=== PATIENT | female | born 1935 | race Caucasian/White ===

== ENCOUNTER 2020-07-15 12:12 | Emergency (ER) | payer MEDICARE, SELFPAY ==
--- NOTE | ~2020-07-15 | XR_ITS ---
EXAMINATION: XR chest 1V DATE: 07/15/2020 13:20 INDICATION: Syncope. TECHNIQUE: A single frontal view of the chest was obtained. COMPARISON: Chest 2 views 09/16/2019, CT abdomen and pelvis 10/08/2017 FINDINGS: There is no pneumonia, pleural effusion, or pneumothorax. Cardiomegaly is noted. Median augie rnotomy wires and mediastinal surgical clips are seen, likely from prior coronary artery bypass graft ing. IMPRESSION: 1. Cardiomegaly. Reviewed, dictated and finalized at location B. IMPRESSION: 1. Cardiomegaly.
--- NOTE | ~2020-07-15 | CT_ITS ---
EXAMINATION: CT brain wo con DATE: 07/15/2020 13:14 INDICATION: Syncope TECHNIQUE: Computed tomography (CT) of the head was performed without intravenous contrast. The mA wa s adjusted according to patient size. Iterative reconstruction technique was employed. Exam dose: 60 5.33 mGy-cm total exam DLP. COMPARISON: 02/04/2019 CT brain FINDINGS: No intracranial mass lesion or hemorrhage or cerebrovascular accident is evident. No midlin e shift or mass effect. There is vertebral and carotid siphon internal carotid artery calcification. There is nonspecific dim inished attenuation of the cerebral white matter, likely due to chronic small vessel ischemic changes . No fracture or bone destruction of the cranial vault. IMPRESSION: Cerebral atherosclerosis and chronic small vessel ischemic changes of the cerebral white matter Reviewed, dictated and finalized at Location [facility]. Reviewed, dictated and finalized at location A.
[2020-07-15 12:07] VITALS: BP 126/47; PULSE 68; RESP 13; TEMP 37.1; O2SAT 100
[2020-07-15 12:27] VITALS: PULSE 66
[2020-07-15 12:28] VITALS: BP 126/47; PULSE 64; RESP 13; O2SAT 99
--- NOTE | 2020-07-15 12:33 | ECG_ITS ---
Measurements Intervals [place] Rate: 67 P: MT: 0 QRS: 92 QRSD: 172 T: -67 QT: 454 QTc: 480 Interpretive Statements ATRIAL FIBRILLATION LEFT AXIS DEVIATION LEFT BUNDLE BRANCH BLOCK ABNORMAL ECG Electronically Signed On 07-15-2020 12:53:44 CDT by Syed Gillespie D.O.
[2020-07-15 12:53] LABS: Basophils Percent Auto 0.4 % (0.2-1.2); Eosinophils Absolute Auto 0.2 K/mm3 (0-0.3); Hematocrit 36.6 % (37.0-47.0); Hemoglobin 11.8 g/dL (12.0-15.0); Immature Granulocyte Absolute 0.03 K/mm3 (0.00-0.031); Immature Granulocyte Percent A 0.4 % (0-0.5); Lymphocytes Absolute Auto 0.82 K/mm3 (0.9-3.2); Lymphocytes Percent Auto 9.7 % (18.3-44.2); Mean Corpuscular HGB Conc 32.2 g/dl (32-36); Mean Corpuscular Hemoglobin 30.6 pg (26-34); Mean Corpuscular Volume 94.8 fl (80-100); Mean Platelet Volume 10.3 fl (7.4-10.4); Monocytes Absolute Auto 0.7 K/mm3 (0.1-0.6); Monocytes Percent Auto 7.9 % (2.6-8.5); Neutrophils Absolute Auto 6.7 K/mm3 (1.3-6.7); Neutrophils Percent Auto 79.6 % (45.5-73.1); Platelet Count Result 220 k/mm3 (150-375); Red Blood Count 3.86 M/mm3 (4.2-5.4); Red Cell Distribution Width 12.9 % (11.5-14.5); White Blood Count 8.5 K/mm3 (4.5-10.0)
--- NOTE | 2020-07-15 12:55 | ED.SYNCOPE ---
HPI - Syncope General Chief Complaint: Syncope Stated Complaint: near syncope Time Seen by Provider: 07/15/20 12:36 History of Present Illness HPI narrative: Patient presents via EMS for syncope at home. She does not remember the event for me but had just told the nurse about fainting going to the bathroom. She had no injury. She has no pain. She denies being sick recently. Her bowels and urine are working. She lives alone. Her daughter does the shopping. She has been isolating since COVID. She has no other complaints. MD complaint: loss of consciousness and collapsed Onset (ago): hour(s) Prodromal symptoms: other (Unknown) Witnessed: No Context: other (Walking to the bathroom) Injuries sustained associated with event: none Current symptoms: none Treatments prior to arrival: none Related Data Home Medications Medication Instructions Recorded Confirmed lorazepam [Ativan] 1 mg PO DAILY PRN 07/15/20 metoprolol succinate 25 mg PO DAILY 07/15/20 Allergies Allergy/AdvReac Type Severity Reaction Status Date / Time No Known Allergies Allergy Unknown Unverified 07/15/20 12:29 No Known Allergies Allergy Unknown Uncoded 06/29/20 12:07 Review of Systems Review of Systems: Narrative: CONSTITUTIONAL: Denies fever, chills, or sweats. EYES: Denies visual changes, redness, or discharge. ENT: Denies rhinorrhea, congestion, sore throat, or otalgia. CARDIOVASCULAR: Denies chest pain, palpitations, or edema. RESPIRATORY: Denies cough or dyspnea. GASTROINTESTINAL: Denies abdominal pain, nausea, vomiting, or diarrhea. GENITOURINARY: Denies dysuria or hematuria. SKIN: Denies rash or itching. MUSCULOSKELETAL: Denies back pain, joint pain, or myalgia. NEUROLOGIC: Denies headache, numbness, or weakness. . All systems reviewed & are unremarkable except as noted in HPI and below PMFSH Past Medical History Medical History Breast lump Chronic combined systolic and diastolic CHF (congestive heart failure) Closed fracture dislocation of ankle with malunion Coronary artery disease Depression Diabetes mellitus Diabetic retinopathy Essential hypertension Hyperlipidemia Hypothyroidism Thyroid cancer Thyroid nodule Surgical History Surgical History History of carpal tunnel release History of cholecystectomy History of knee replacement (~2000) History of knee replacement (~2007) History of partial hysterectomy History of tonsillectomy Hx of CABG Family History Family History (Updated 08/30/17 @ 10:49 by DOCTOR UNKNOWN) Father Family history of cataracts Family history of diabetes mellitus in first degree relative Family history of coronary artery disease, Onset Age: 80 Patient's father is , Onset Age: 80 Mother Family history of cataracts Family history of diabetes mellitus in first degree relative Family history of coronary artery disease, Onset Age: 70 Sibling Family history of cataracts Family history of diabetes mellitus in first degree relative Other Diabetes mellitus Family history of cardiovascular disease Social History Social History Smoking status: Never smoker Second hand tobacco smoke exposure: No Alcohol intake: never Exam Narrative: Exam Narrative: GENERAL: Well-appearing, well-nourished, and in no acute distress. HEAD: Normocephalic, atraumatic. EYES: PERRLA and EOMI. ENT: Nares clear, no rhinorrhea or epistaxis. Mucous membranes moist. NECK: Supple. CHEST: Clear to auscultation. No respiratory distress. HEART: Regular rate and rhythm. No murmur heard. Normal peripheral pulses. ABDOMEN: Soft, nontender, nondistended, normal active bowel sounds. EXTREMITIES: Normal range of motion. No edema. Right ankle deformed. SKIN: Warm, dry, no rash. NEURO: No focal deficits. Alert and oriented x2. PS
[2020-07-15 13:07] LABS: Anion Gap 10 mmol/L (8-16); Blood Urea Nitrogen 66 mg/dL (7-17); Calcium 8.8 mg/dL (8.4-10.2); Carbon Dioxide 32 mmol/L (22-30); Chloride 94 mmol/L (98-107); Estimated CRCL calculation 21 ml/min; Estimated Glomerular Filt Rate 25; Glucose 169 mg/dL (65-105); Potassium 3.6 mmol/L (3.4-5.0); Sodium 136 mmol/L (137-145)
[2020-07-15 13:17] LABS: INR 1.1
[2020-07-15 13:21] LABS: Creatine Kinase 35 U/L (30-135)
[2020-07-15 13:25] LABS: NT Pro B Type Natriuretic Pept 2200 PG/ML (5-100)
[2020-07-15 14:05] LABS: Thyroid Stimulating Hormone Reflex 0.024 uIU/mL (0.465-4.68)
[2020-07-15 14:10] VITALS: BP 156/50; PULSE 71; RESP 16; O2SAT 98
[2020-07-15 14:25] LABS: Add Urine Microscopic? NO; Appearance Urine Clear (Clear); Bilirubin Urine Negative (Negative); Blood Urine Negative (Negative); Color Urine Straw (Yellow); Glucose Urine UA Negative (Negative); Ketones Urine Negative (Negative); Leukocyte Esterase Ur Negative LEU/UL (Negative); Nitrate Urine Negative (Negative); Protein Urine Negative (Negative); Urobilinogen Urine Negative mg/dL (<2.0)
[2020-07-15 14:43] LABS: Amphetamine Screen Urine Negative (Negative); Barbiturate Screen Urine Negative (Negative); Benzodiazepines Screen Urine Negative (Negative); Cannabinoid Screen Urine Negative (Negative); Cocaine Screen Urine Negative (Negative); Methadone Screen Urine Negative (Negative); Opiate Screen Urine Negative (Negative); Phencyclidine Screen Urine Negative (Negative)
[2020-07-15 15:10] VITALS: BP 129/53; PULSE 65; RESP 15; O2SAT 100
[2020-07-15 16:04] VITALS: BP 126/47; PULSE 66; RESP 14; O2SAT 98
== END 2020-07-15 16:05 | disposition home or self-care (01) ==
PROVIDERS: Emergency Provider Emergency Medicine; PCP Family Medicine
DX: R55 Syncope and collapse (principal); I25.10 Atherosclerotic heart disease of native coronary artery without angina pectoris; F32.9 Major depressive disorder, single episode, unspecified; E11.319 Type 2 diabetes mellitus with unspecified diabetic retinopathy without macular edema; E78.5 Hyperlipidemia, unspecified; E03.9 Hypothyroidism, unspecified; I50.42 Chronic combined systolic (congestive) and diastolic (congestive) heart failure; I11.0 Hypertensive heart disease with heart failure; Z85.850 Personal history of malignant neoplasm of thyroid; Z96.659 Presence of unspecified artificial knee joint; Z95.1 Presence of aortocoronary bypass graft; I48.91 Unspecified atrial fibrillation; I44.7 Left bundle-branch block, unspecified; Z79.4 Long term (current) use of insulin; Z79.899 Other long term (current) drug therapy
CPT/HCPCS: 36415; 70450; 71045; 80048; 80307; 81003; 82550; 83735; 83880; 84439; 84443; 85025; 85610; 93005; 99284

== ENCOUNTER 2021-03-28 10:10 | Inpatient (IN) | payer MEDICARE, SELFPAY ==
[2021-03-28] VITALS (26 sets, daily range): BP systolic 101–145; BP diastolic 55–90; PULSE 70–100; RESP 13–21; TEMP 36.1–36.7; O2SAT 96–100; BMI 38.8
--- NOTE | ~2021-03-28 | XR_ITS ---
EXAMINATION: XR ankle RT min 3V EXAM DATE: 03/28/2021 12:00 INDICATION: Initial encounter following injury, with pain of the left ankle. TECHNIQUE: Left ankle frontal, lateral and oblique projections obtained and reviewed. Comparison is m kirstin to prior examination from 11/13/2020. FINDINGS: There is chronic ankle deformity with approximately 45 degrees medial angulation of the lisa us and tibial plafond and. Again broken medial malleolar screw. There are 2 right fibular distal meta physeal screws. 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 Superimposed on these chronic changes, there is suspicion of a new acute oblique nondisplaced closed posttraumatic fracture of the right tibial distal metadiaphysis. This finding has been indicated. Bon es are osteopenic. Advanced midfoot arthritis. IMPRESSION: 1. Probable acute nondisplaced right distal tibial metadiaphyseal fracture. 2. Chronic ankle deformity, hardware as above. Reviewed, dictated and finalized at location A.
--- NOTE | ~2021-03-28 | CT_ITS ---
EXAMINATION: CT cervical spine wo con DATE: 03/28/2021 11:50 INDICATION: Neck tenderness after fall TECHNIQUE: Computed tomography (CT) of the cervical spine was performed without intravenous contrast. The dose-length product was 489 mGy-cm. Automated exposure control and iterative reconstruction tech nique were employed. COMPARISON: None FINDINGS: There is straightening of cervical lordosis. There are advanced degenerative changes of the odontoid process. There is degenerative anterolisthesis at C3-4 and C4-5 secondary to facet and unci maeve degenerative change. There is disc narrowing and endplate degenerative changes at the remainder of the cervical spine levels. Lung apices are unremarkable. There is carotid atherosclerosis. No acut e fracture or traumatic malalignment. No evidence for perched facet. No paraspinal soft tissue abnorm ality. There is medial deviation of the carotids anterior to the vertebra of the lower cervical spine , normal variant. IMPRESSION: 1. No acute fracture. 2: Moderate-severe cervical spondylosis. Reviewed, dictated and finalized at location B.
--- NOTE | ~2021-03-28 | XR_ITS ---
EXAMINATION: XR hand LT min 3V DATE: 03/28/2021 12:00 INDICATION: Left hand injury. TECHNIQUE: 3 views of left hand were obtained. COMPARISON: None. FINDINGS: Bone alignment is normal. There is a comminuted fracture of diaphysis of fifth proximal pha lanx. The main distal fracture fragment demonstrates 23 degrees dorsal angulation and 13 degrees ulna r angulation. There is diffuse osteopenia. There is widespread osteoarthritis, severe at first carpom etacarpal joint, first interphalangeal joint, second through fifth distal interphalangeal joints, and fifth proximal interphalangeal joint. There is severe arthritis of second and fourth proximal interp halangeal joints with osteophytes and erosions. IMPRESSION: 1. Comminuted fracture of fifth proximal phalanx. 2. Severe arthritis of second and fourth proximal interphalangeal joints, which may be erosive osteoa rthritis. 3. Severe polyarticular osteoarthritis. Reviewed, dictated and finalized at location A. IMPRESSION: 1. Comminuted fracture of fifth proximal phalanx. 2. Severe arthritis of second and fourth proximal interphalangeal joints, which may be erosive osteoarthritis. 3. Severe polyarticular osteoarthritis.
--- NOTE | ~2021-03-28 | XR_ITS ---
EXAMINATION: XR hip RT 2V w AP pelvis DATE: 03/28/2021 17:22 INDICATION: Right leg pain post fall TECHNIQUE: Anteroposterior view of the pelvis and anteroposterior and cross-table lateral views of th e right hip were obtained. COMPARISON: None. FINDINGS: Partially visualized lateral plate and screw fixation along the visualized proximal to mid right femu r. Bone alignment is normal. No fracture. Mild bilateral hip and sacroiliac osteoarthritis. Mild lowe r lumbar spondylosis. Large phlebolith in the left hemipelvis. IMPRESSION: 1. Mild degenerative skeletal changes in the pelvis and lower lumbar spine. No acute osseous abnormal ity. Reviewed, dictated and finalized at location A. IMPRESSION: 1. Mild degenerative skeletal changes in the pelvis and lower lumbar spine. No acute osseous abnormality.
--- NOTE | ~2021-03-28 | CT_ITS ---
EXAMINATION: CT brain wo con DATE: 03/28/2021 11:50 INDICATION: Neck pain. Fall. TECHNIQUE: Computed tomography (CT) of the head was performed without intravenous contrast. The mA wa s adjusted according to patient size. Iterative reconstruction technique was employed. The dose-lengt h product was 605.33 mGy-cm. COMPARISON: Head CT 07/15/2020 FINDINGS: There is no intracranial hemorrhage, acute infarction, or abnormal intracranial mass lesion . There are scattered areas of low attenuation in the cerebral white matter, which is within normal l imits for the patient's age. The ventricles are normal in size. There are likely changes of ocular le ns replacement surgeries. There is mild mucosal thickening in the ethmoid sinuses. The mastoid air ce lls are normal. IMPRESSION: 1. Normal aging brain. Reviewed, dictated and finalized at location A. IMPRESSION: 1. Normal aging brain.
--- NOTE | ~2021-03-28 | XR_ITS ---
EXAMINATION: XR chest 1V portable DATE: 03/28/2021 12:58 INDICATION: Syncope. TECHNIQUE: A single frontal view of the chest was obtained. COMPARISON: Chest single view 07/15/2020 FINDINGS: There is mild atelectasis in left lower lung zone. No pleural effusion or pneumothorax. Car diomegaly is noted. Median sternotomy wires and mediastinal surgical clips are seen, likely from prio r coronary artery bypass grafting. IMPRESSION: 1. Mild atelectasis in left lower lung zone. 2. Cardiomegaly. Reviewed, dictated and finalized at location A.
--- NOTE | 2021-03-28 10:20 | ECG_ITS ---
Measurements Intervals [place] Rate: 77 P: ID: 0 QRS: -52 QRSD: 158 T: 121 QT: 437 QTc: 496 Interpretive Statements ATRIAL FIBRILLATION LEFT AXIS DEVIATION LEFT BUNDLE BRANCH BLOCK BASELINE ARTIFACT- I, II, III, AVR, AVL, AVF, V1-V6 ABNORMAL ECG Electronically Signed On 03-28-2021 14:52:28 CDT by Syed Gillespie D.O.
--- NOTE | 2021-03-28 10:59 | PC.NURSE ---
Pt. continuing to remove c-collar. Pt. denies any neck pain or pain upon palpation currently.
--- NOTE | 2021-03-28 11:22 | PC.NURSE ---
Pt. continues to removed c-collar and does not want it on. ERP aware and it ok with removal of c-collar.
--- NOTE | 2021-03-28 11:32 | ED.FALL ---
HPI - Fall General Chief Complaint: Fall Stated Complaint: FALL Time Seen by Provider: 03/28/21 11:15 History of Present Illness HPI Narrative: 86 yo female w/ h/o dementia presents from home after an unwitnessed fall. She reportedly had a fall at home this morning. She has an obvious ankle deformity, which EMS reports is chronic, but she is having pain there. She does report pain in other locations, but is not able to verbalize where. History limited by dmeentia Her daughter reports that she does have an old ankle injury, but was able to ambulate with a walker. Related Data Home Medications Medication Instructions Recorded Confirmed lorazepam [Ativan] 1 mg PO DAILY PRN 07/15/20 metoprolol succinate 25 mg PO DAILY 07/15/20 Allergies Allergy/AdvReac Type Severity Reaction Status Date / Time No Known Allergies Allergy Unknown Unverified 07/15/20 12:29 No Known Allergies Allergy Unknown Uncoded 06/29/20 12:07 Review of Systems Review of Systems: ROS unobtainable: Yes unobtainable due to mental status PMFSH Past Medical History Medical History Breast lump Chronic combined systolic and diastolic CHF (congestive heart failure) Closed fracture dislocation of ankle with malunion Coronary artery disease Depression Diabetes mellitus Diabetic retinopathy Essential hypertension Hyperlipidemia Hypothyroidism Thyroid cancer Thyroid nodule Surgical History Surgical History History of carpal tunnel release History of cholecystectomy History of knee replacement (~2000) History of knee replacement (~2007) History of partial hysterectomy History of tonsillectomy Hx of CABG Family History Family History Father Family history of cataracts Family history of diabetes mellitus in first degree relative Family history of coronary artery disease, Onset Age: 80 Patient's father is , Onset Age: 80 Mother Family history of cataracts Family history of diabetes mellitus in first degree relative Family history of coronary artery disease, Onset Age: 70 Sibling Family history of cataracts Family history of diabetes mellitus in first degree relative Other Diabetes mellitus Family history of cardiovascular disease Social History Social History Smoking status: Never smoker Second hand tobacco smoke exposure: No Alcohol intake: never Gender identity (if verbalized by the patient): Female Exam Const: General: no acute distress and alert Nutritional Appearance: well nourished Other: Oriented to self and location HENMT: Head: normal to inspection Eyes: Conjunctivae: conjunctivae normal Pupils: Equal, round and reactive pupils present EOM: EOMs intact bilaterally Neck: Neck: normal visual inspection Resp: Effort & Inspection: normal respiratory effort Auscultation: clear to auscultation bilaterally Cardio: Rate: regular rate Rhythm: regular rhythm GI: GI Palp: Yes Soft to palpation and No Tenderness to palpation present (GI) Back/Spine/Pelvis: Other: mild cervical spine tenderness Skin: Other: bruising to left hand Neuro: General: moves all extremities, no focal motor deficits and CN's II-XI intact bilaterally Speech: normal speech Extrem: Other: significant deformity to right ankle. bruising to left hand Course Vital Signs Vital signs: Vital Signs Temperature 36.7 C 03/28/21 10:22 Pulse Rate 80 03/28/21 10:22 Respiratory Rate 14 03/28/21 10:22 Blood Pressure 145/70 H 03/28/21 10:22 Pulse Oximetry 99 03/28/21 10:22 Temperature 36.7 C 03/28/21 10:22 Pulse Rate 84 03/28/21 13:42 Respiratory Rate 20 03/28/21 13:42 Blood Pressure 142/79 H 03/28/21 13:42 Pulse Oximetry 99 03/28/21 13:42 MDM
[2021-03-28 12:50] LABS: Add Urine Microscopic? YES; Appearance Urine Cloudy (Clear); Bacteria Urine Trace /hpf; Bilirubin Urine Negative (Negative); Blood Urine Negative (Negative); Color Urine Yellow (Yellow); Glucose Urine UA Negative (Negative); Ketones Urine Negative (Negative); Leukocyte Esterase Ur Trace LEU/UL (Negative); Nitrate Urine Negative (Negative); Protein Urine Negative (Negative); RBC Urine 0-2 /hpf (0-2); Specific Grav Ur 1.017 (1.001-1.035); Squamous Epithelial Cell Urine Many /hpf (Few); Urobilinogen Urine Negative mg/dL (<2.0)
[2021-03-28 12:51] LABS: Basophils Percent Auto 0.1 % (0.2-1.2); Eosinophils Absolute Auto 0.1 K/mm3 (0-0.3); Eosinophils Percent Auto 1.1 % (0-4.4); Hematocrit 36.8 % (37.0-47.0); Hemoglobin 11.5 g/dL (12.0-15.0); Immature Granulocyte Absolute 0.02 K/mm3 (0.00-0.031); Immature Granulocyte Percent A 0.2 % (0-0.5); Lymphocytes Absolute Auto 0.74 K/mm3 (0.9-3.2); Lymphocytes Percent Auto 8.8 % (18.3-44.2); Mean Corpuscular HGB Conc 31.3 g/dl (32-36); Mean Corpuscular Hemoglobin 30.5 pg (26-34); Mean Corpuscular Volume 97.6 fl (80-100); Mean Platelet Volume 10.6 fl (7.4-10.4); Monocytes Absolute Auto 0.7 K/mm3 (0.1-0.6); Monocytes Percent Auto 8.2 % (2.6-8.5); Neutrophils Absolute Auto 6.9 K/mm3 (1.3-6.7); Neutrophils Percent Auto 81.6 % (45.5-73.1); Platelet Count Result 201 k/mm3 (150-375); Red Blood Count 3.77 M/mm3 (4.2-5.4); Red Cell Distribution Width 14.5 % (11.5-14.5); White Blood Count 8.4 K/mm3 (4.5-10.0)
[2021-03-28 13:00] LABS: Alanine Aminotransferase 23 U/L (4-35); Albumin Level 3.8 g/dL (3.5-5.1); Alkaline Phosphatase 100 U/L (38-126); Anion Gap 7 mmol/L (8-16); Aspartate Amino Transferase 30 U/L (14-36); Bilirubin,Total 0.5 mg/dL (0.2-1.3); Blood Urea Nitrogen 54 mg/dL (7-17); Calcium 8.9 mg/dL (8.4-10.2); Carbon Dioxide 33 mmol/L (22-30); Chloride 98 mmol/L (98-107); Estimated CRCL calculation 24 ml/min; Estimated Glomerular Filt Rate 27; Glucose 168 mg/dL (65-105); INR 1.1; Potassium 4.1 mmol/L (3.4-5.0); Prothrombin Time 14.4 Seconds (11.1-14.7); Sodium 138 mmol/L (137-145)
[2021-03-28 13:01] LABS: Partial Thromboplastin Time 29.1 SECONDS (22.3-36.8)
[2021-03-28 13:17] LABS: Troponin I 0.051 ng/mL (0.000-0.034)
--- NOTE | 2021-03-28 15:31 | PM.IMPN ---
Progress Note: A&P Assessment and Plan (1) Chronic combined systolic and diastolic CHF (congestive heart failure): Code(s): I50.42 - Chronic combined systolic (congestive) and diastolic (congestive) heart failure Status: Acute Assessment and Plan: I will order Echocardiogram as patient is having Non sustained VT on EKG and monitor pt and tele I will order potassium and magnesium levels I will continue diuretics I catalino order serial troponins Pt to be kept on telemetry. (2) Closed fracture dislocation of ankle with malunion: Qualifiers: Laterality: right Qualified Code(s): S82.891P - Other fracture of right lower leg, subsequent encounter for closed fracture with malunion Code(s): S82.899P - Other fracture of unspecified lower leg, subsequent encounter for closed fracture with malunion Status: Acute Assessment and Plan: Pt had cast in ED, I will consult orthopedics DR Jones (3) Diabetes mellitus: Code(s): E11.9 - Type 2 diabetes mellitus without complications Status: Acute Assessment and Plan: Accuchecks, SSI, Order HBaic (4) Coronary artery disease: Code(s): I25.10 - Atherosclerotic heart disease of [place] coronary artery without angina pectoris Status: Acute Assessment and Plan: Continue patients medication (5) Depression: Code(s): F32.9 - Major depressive disorder, single episode, unspecified Status: Acute Assessment and Plan: Continue patients medication (6) Hypothyroidism: Code(s): E03.9 - Hypothyroidism, unspecified Status: Acute Assessment and Plan: Continue patients medication (7) Essential hypertension: Code(s): I10 - Essential (primary) hypertension Status: Acute Assessment and Plan: Continue patients medication (8) Hyperlipidemia: Code(s): E78.5 - Hyperlipidemia, unspecified Status: Acute Assessment and Plan: Continue patients medication (9) CKD (chronic kidney disease): Code(s): N18.9 - Chronic kidney disease, unspecified Status: Acute Assessment and Plan: CReat is 1.8 which is at patient baseline continue to watch BMP. Rcihie as patient is on diuretics Subjective Date/time seen: 03/28/21 15:31 Fall Pt had a unwitnessed fall out of her bed, pt has a history of ankle deformity, presently pt has acute nondisplaced right distal tibial metadiaphyseal fracture of her right ankle and sustained a comminuted fracture of fifth proximal phalanx. PT has multiple problems including dementia, DM, CHF, HTN CAD and COPD, hypothyoidism, thyroid cancer. Presently pts creat is 1.8, her trop is 0.051 her ekg shows ATRIAL FIBRILLATION, LEFT AXIS DEVIATION, LEFT BUNDLE BRANCH BLOCK. Pt had some non sustained VT tach on tele. So we are going to admit to telemetry. And consult orthopedics. Pt has been seeing DR Jones orthopedics, for her right ankle, in the past. Difficult to get accurate history about fall as pt has dementia and it was unwitnessed. Pt had Ct head, CT- spine in ED. Review of Systems Review of Systems: All systems reviewed & are unremarkable except as noted in HPI and below Exam Const: General: other (pleasant lady poor historian pt loks slightly swollen face and hands ) Nutritional Appearance: overweight Orientation/consciousness: oriented to person HENMT: Head: normal to inspection Resp: Effort & Inspection: no respiratory distress Auscultation: no rhonchi and no wheezes Cardio: Rate: regular rate Rhythm: regular rhythm GI: Inspection: normal to inspection GI Palp: No abdominal tenderness, No Guarding due to palpation present (GI) and No Hepatomegaly present Auscultation: normal bowel sounds Neuro: General: oriented to person Extrem: General: other (R ankle in cast, L finger in splint ) Objective Data Vital Signs Vital Signs: Vital Signs - 24 hr 03/28/21 10:22 03/28/21 10:32 03/28/21 10
--- NOTE | 2021-03-28 15:35 | PC.NURSE ---
This patient, Fawn Montgomery, was admitted to IMU Room 202-01. Patient/family oriented to hospital policies and general routines including ID bracelet, bed and alarms, visiting hours, pain management, procedures, bathroom and other care routines, personal items, smoking policy, room service/diet, and visiting hours. Information on how to activate the Rapid Response Team has been discussed. Patient/Family are encouraged to report perceived risks to care and to ask questions if they do not understand what they are told or what they should do.
[2021-03-28 16:32] LABS: Magnesium 1.9 mg/dL (1.6-2.3)
[2021-03-28 16:43] LABS: Hemoglobin A1C 8.2 % (<5.7)
[2021-03-28 17:00] LABS: Glucose Point of Care 159 (65-105)
[2021-03-28 20:05] LABS: Glucose Point of Care 306 (65-105)
[2021-03-28] MEDS: BUMETANIDE 1 MG TABLET 2 MG PO (20:36)
[2021-03-28] MEDS: VENLAFAXINE HCL XR 75 MG CAP.ER.24H PO (20:36)
[2021-03-28] MEDS: HEPARIN SODIUM 5,000 UNITS/ML VIAL 5000 UNITS SUB-Q (20:36)
[2021-03-28] MEDS: LORazepam (*CRX) 1 MG TABLET PO (20:36)
[2021-03-28] MEDS: TOLNAFTATE 1% POWDER 45 GM BTL 1 APPLIC TOPICAL (20:37)
[2021-03-28] MEDS: traZODone HCL 50 MG TABLET 100 MG PO (20:37)
[2021-03-29] VITALS (10 sets, daily range): BP systolic 101–149; BP diastolic 61–98; PULSE 56–109; RESP 19–24; TEMP 36–36.8; O2SAT 96–98
[2021-03-29] MEDS: LEVOTHYROXINE SODIUM 100 MCG TABLET PO (05:49)
[2021-03-29] MEDS: LEVOTHYROXINE SODIUM 75 MCG TABLET PO (05:50)
[2021-03-29 07:00] LABS: Anion Gap 4 mmol/L (8-16); Blood Urea Nitrogen 56 mg/dL (7-17); Calcium 8.4 mg/dL (8.4-10.2); Carbon Dioxide 31 mmol/L (22-30); Chloride 100 mmol/L (98-107); Estimated CRCL calculation 23 ml/min; Estimated Glomerular Filt Rate 27; Glucose 207 mg/dL (65-105); Magnesium 1.9 mg/dL (1.6-2.3); Sodium 135 mmol/L (137-145)
[2021-03-29 08:24] LABS: Glucose Point of Care 189 (65-105)
[2021-03-29] MEDS: HEPARIN SODIUM 5,000 UNITS/ML VIAL 5000 UNITS SUB-Q ×2 (08:59→22:18)
[2021-03-29] MEDS: PRAVASTATIN SODIUM 20 MG TABLET PO (08:59)
[2021-03-29] MEDS: BUMETANIDE 1 MG TABLET 2 MG PO ×2 (08:59→17:48)
[2021-03-29] MEDS: VENLAFAXINE HCL XR 75 MG CAP.ER.24H PO ×2 (08:59→20:43)
[2021-03-29] MEDS: IRBESARTAN 75 MG TABLET PO (08:59)
[2021-03-29] MEDS: TOLNAFTATE 1% POWDER 45 GM BTL 1 APPLIC TOPICAL ×2 (09:00→22:18)
[2021-03-29 12:06] LABS: Glucose Point of Care 214 (65-105)
[2021-03-29] MEDS: INSULIN ASPART (*BKC) 100 UNITS/ML SUB-Q (12:24)
--- NOTE | 2021-03-29 12:47 | PM.IMPN ---
Progress Note: A&P Assessment and Plan (1) Chronic combined systolic and diastolic CHF (congestive heart failure): Code(s): I50.42 - Chronic combined systolic (congestive) and diastolic (congestive) heart failure Status: Acute Assessment and Plan: Echocardiogram Non sustained VT on lpn medical assistant and tele potassium and magnesium levels continue diuretics serial troponins Pt to be kept on telemetry. (2) Closed fracture dislocation of ankle with malunion: Qualifiers: Laterality: right Qualified Code(s): S82.891P - Other fracture of right lower leg, subsequent encounter for closed fracture with malunion Code(s): S82.899P - Other fracture of unspecified lower leg, subsequent encounter for closed fracture with malunion Status: Acute Assessment and Plan: Pt had cast in ED consult orthopedics DR Jones Follow Ortho recs PT OT (3) Diabetes mellitus: Code(s): E11.9 - Type 2 diabetes mellitus without complications Status: Acute Assessment and Plan: Accuchecks, SSI as needed Order HBa1c (4) Coronary artery disease: Code(s): I25.10 - Atherosclerotic heart disease of [place] coronary artery without angina pectoris Status: Acute Assessment and Plan: Stable Continue meds (5) Depression: Code(s): F32.9 - Major depressive disorder, single episode, unspecified Status: Acute Assessment and Plan: Continue patients medication Stable (6) Hypothyroidism: Code(s): E03.9 - Hypothyroidism, unspecified Status: Acute Assessment and Plan: Continue patients medication Stable (7) Essential hypertension: Code(s): I10 - Essential (primary) hypertension Status: Acute Assessment and Plan: Continue patients medication Stable (8) Hyperlipidemia: Code(s): E78.5 - Hyperlipidemia, unspecified Status: Acute Assessment and Plan: Continue patients medication Stable (9) CKD (chronic kidney disease): Code(s): N18.9 - Chronic kidney disease, unspecified Status: Acute Assessment and Plan: Cr is 1.8 Will monitor At baseline Subjective Date/time seen: 03/29/21 12:47 I feel fine Review of Systems Review of Systems: Narrative: Patient is not a very good historian is states that she came in because she fell she denies any loss of consciousness. Exam Const: General: other (pleasant lady poor historian pt loks slightly swollen face and hands ) Nutritional Appearance: overweight Orientation/consciousness: oriented to person HENMT: Head: normal to inspection Resp: Effort & Inspection: no respiratory distress Auscultation: no rhonchi and no wheezes Cardio: Rate: regular rate Rhythm: regular rhythm GI: Inspection: normal to inspection Auscultation: normal bowel sounds Neuro: General: oriented to person Extrem: General: other (R ankle in cast, L finger in splint ) Objective Data Vital Signs Vital Signs: Vital Signs - 24 hr 03/28/21 12:57 03/28/21 13:00 03/28/21 13:15 Temperature Pulse Rate 72 75 95 Respiratory Rate 20 20 18 Blood Pressure Pulse Oximetry 98 98 99 03/28/21 13:42 03/28/21 13:46 03/28/21 14:07 Temperature Pulse Rate 84 76 84 Respiratory Rate 20 18 15 Blood Pressure 142/79 H 101/90 Pulse Oximetry 99 99 03/28/21 14:21 03/28/21 14:33 03/28/21 14:45 Temperature Pulse Rate 76 85 85 Respiratory Rate 14 18 21 H Blood Pressure Pulse Oximetry 98 97 97 03/28/21 15:40 03/28/21 16:00 03/28/21 18:00 Temperature 97 F L Pulse Rate 79 88 75 Respiratory Rate 18 Blood Pressure 115/68 Pulse Oximetry 100 03/28/21 19:52 03/28/21 20:00 03/28/21 22:00 Temperature 98.1 F Pulse Rate 82 93 100 Respiratory Rate 18 Blood Pressure 124/57 L Pulse Oximetry 97 03/28/21 23:43 03/29/21 00:00 03/29/21 04:00 Temperature 98.1 F 98.2 F Pulse Rate 86 88 84 Respiratory Rate 18 19
--- NOTE | 2021-03-29 14:44 | PC.NURSE ---
1130- pt status changed to med/surg as ordered
[2021-03-29 18:08] LABS: Glucose Point of Care 189 (65-105)
--- NOTE | 2021-03-29 19:14 | PM.CNOR ---
Assessment and Plan Assessment and plan (1) Closed fracture dislocation of ankle with malunion: Qualifiers: Laterality: right Qualified Code(s): S82.891P - Other fracture of right lower leg, subsequent encounter for closed fracture with malunion Code(s): S82.899P - Other fracture of unspecified lower leg, subsequent encounter for closed fracture with malunion Status: Acute (2) Insufficiency fracture of tibia: Qualifiers: Encounter type: initial encounter Qualified Code(s): M84.469A - Pathological fracture, unspecified tibia and fibula, initial encounter for fracture Code(s): M84.469A - Pathological fracture, unspecified tibia and fibula, initial encounter for fracture Status: Acute Assessment and Plan: Acute onset of pain. Nondisplaced tibial distal metaphyseal fracture noted on radiographs. Prodrome of increasing severe pain the previous week. The fracture is secondary to increased stress from the angular deformity of the ankle malunion, and osteoporosis. The fibular hardware was removed last year. Until last week, she was quite stable and doing well with her ankle brace, despite the malunion and ankle joint arthritis. She is an in home ambulator with a walker, and occasionally goes out with a wheelchair, with her very supportive family. The comminuted minimally displaced proximal phalanx fracture on the left hand can be treated conservatively with splinting. Expect good healing over the next 2 weeks. I contoured the splint today. Plan to change her splint to a cast prior to discharge. She will likely need rehab and will be [id number] transfers only for 4 weeks. History of Present Illness HPI Consult date: 03/29/21 Chief complaint: Nonsustained v-tach, ankle fracture, Narrative: Patient complains of acute right ankle pain. Fell from standing height. Admitted through the emergency room for definitive management. She had a prodrome of pain 1 week prior. Weightbearing became quite painful then suddenly was unable to bear weight. Comfortable at rest. No numbness, tingling, or other associated symptoms. Also complains of left finger pain. Was splinted in the emergency room. Review of Systems Review of Systems: Narrative: Denies loss of consciousness. Poor memory for events. Congestive heart failure symptoms. Oxygen by nasal cannula yesterday. Frequent urination. All systems reviewed & are unremarkable except as noted in HPI and below PMFSH Past Medical History Medical History (Updated 03/29/21 @ 19:19 by Arnold Jones MD) Breast lump Chronic combined systolic and diastolic CHF (congestive heart failure) Closed fracture dislocation of ankle with malunion Coronary artery disease Depression Diabetes mellitus Diabetic retinopathy Essential hypertension Hyperlipidemia Hypothyroidism Thyroid cancer Thyroid nodule Surgical History Surgical History History of carpal tunnel release History of cholecystectomy History of knee replacement (~2000) History of knee replacement (~2007) History of partial hysterectomy History of tonsillectomy Hx of CABG Family History Family History Father Family history of cataracts Family history of diabetes mellitus in first degree relative Family history of coronary artery disease, Onset Age: 80 Patient's father is , Onset Age: 80 Mother Family history of cataracts Family history of diabetes mellitus in first degree relative Family history of coronary artery disease, Onset Age: 70 Sibling Family history of cataracts Family history of diabetes mellitus in first degree relative Other Diabetes mellitus Family history of cardiovascular disease Social History Social History Smoking status: Never smoker S
[2021-03-29] MEDS: traZODone HCL 50 MG TABLET 100 MG PO (20:42)
[2021-03-29 21:09] LABS: Glucose Point of Care 195 (65-105)
[2021-03-29] MEDS: LORazepam (*CRX) 1 MG TABLET PO (22:38)
[2021-03-30] VITALS (7 sets, daily range): BP systolic 109–136; BP diastolic 52–96; PULSE 66–100; RESP 18–22; TEMP 36.4–36.9; O2SAT 92–100
--- NOTE | 2021-03-30 02:03 | PC.NURSE ---
This patient, Fawn Montgomery, was transferred to [[id number] ] on 03/30/21 at 0203. Personal belongings sent with patient. Report given to [ Bernard gaspar]. Appropriate documentation sent with patient.
--- NOTE | 2021-03-30 02:35 | PC.NURSE ---
Pt received from [place] [id number]
[2021-03-30] MEDS: LEVOTHYROXINE SODIUM 75 MCG TABLET PO (05:31)
[2021-03-30] MEDS: LEVOTHYROXINE SODIUM 100 MCG TABLET PO (05:31)
[2021-03-30] MEDS: ACETAMINOPHEN 500 MG TABLET 1000 MG PO ×2 (06:33→17:20)
[2021-03-30] MEDS: LORazepam (*CRX) 1 MG TABLET PO (06:34)
[2021-03-30 08:10] LABS: Glucose Point of Care 174 (65-105)
[2021-03-30] MEDS: IRBESARTAN 75 MG TABLET PO (08:28)
[2021-03-30] MEDS: TOLNAFTATE 1% POWDER 45 GM BTL 1 APPLIC TOPICAL ×2 (08:28→20:48)
[2021-03-30] MEDS: PRAVASTATIN SODIUM 20 MG TABLET PO (08:28)
[2021-03-30] MEDS: BUMETANIDE 1 MG TABLET 2 MG PO ×2 (08:28→17:20)
[2021-03-30] MEDS: VENLAFAXINE HCL XR 75 MG CAP.ER.24H PO ×2 (08:28→20:47)
[2021-03-30] MEDS: HEPARIN SODIUM 5,000 UNITS/ML VIAL 5000 UNITS SUB-Q ×2 (08:28→20:47)
--- NOTE | 2021-03-30 10:10 | PCOTNOTE ---
Attempted OT eval. Per RN request HOLD this date, until pt. rest, awareness, and cognition improves
--- NOTE | 2021-03-30 10:31 | PCPTNOTE ---
Attempted PT eval. Per RN request hold evaluation this date, until patient rest, awareness, and cognition improves. ZULEMA PolancoT
[2021-03-30 11:45] LABS: Glucose Point of Care 163 (65-105)
--- NOTE | 2021-03-30 12:29 | PM.IMPN ---
Progress Note: A&P Assessment and Plan (1) Chronic combined systolic and diastolic CHF (congestive heart failure): Code(s): I50.42 - Chronic combined systolic (congestive) and diastolic (congestive) heart failure Status: Acute Assessment and Plan: Echocardiogram Non sustained VT on electrifier operator and tele potassium and magnesium levels continue diuretics serial troponins Pt to be kept on telemetry. (2) Closed fracture dislocation of ankle with malunion: Qualifiers: Laterality: right Qualified Code(s): S82.891P - Other fracture of right lower leg, subsequent encounter for closed fracture with malunion Code(s): S82.899P - Other fracture of unspecified lower leg, subsequent encounter for closed fracture with malunion Status: Acute Assessment and Plan: Pt had cast in ED consult orthopedics DR Jones Follow Ortho recs PT OT (3) Diabetes mellitus: Code(s): E11.9 - Type 2 diabetes mellitus without complications Status: Acute Assessment and Plan: Accuchecks, SSI as needed Order HBa1c (4) Coronary artery disease: Code(s): I25.10 - Atherosclerotic heart disease of [place] coronary artery without angina pectoris Status: Acute Assessment and Plan: Stable Continue meds (5) Depression: Code(s): F32.9 - Major depressive disorder, single episode, unspecified Status: Acute Assessment and Plan: Continue patients medication Stable (6) Hypothyroidism: Code(s): E03.9 - Hypothyroidism, unspecified Status: Acute Assessment and Plan: Continue patients medication Stable (7) Essential hypertension: Code(s): I10 - Essential (primary) hypertension Status: Acute Assessment and Plan: Continue patients medication Stable (8) Hyperlipidemia: Code(s): E78.5 - Hyperlipidemia, unspecified Status: Acute Assessment and Plan: Continue patients medication Stable (9) CKD (chronic kidney disease): Code(s): N18.9 - Chronic kidney disease, unspecified Status: Acute Assessment and Plan: Cr is 1.8 Will monitor At baseline Subjective Date/time seen: 03/30/21 12:29 I FEEL FINE Review of Systems Review of Systems: All systems reviewed & are unremarkable except as noted in HPI and below Exam Narrative: Exam Narrative: PATIENT IS SITTING IN BED Const: General: other (pleasant lady poor historian pt loks slightly swollen face and hands ) Nutritional Appearance: overweight Orientation/consciousness: oriented to person HENMT: Head: normal to inspection Resp: Effort & Inspection: no respiratory distress Auscultation: no rhonchi and no wheezes Cardio: Rate: regular rate Rhythm: regular rhythm GI: Inspection: normal to inspection Auscultation: normal bowel sounds Neuro: General: oriented to person Extrem: General: other (R ankle in cast, L finger in splint ) Objective Data Vital Signs Vital Signs: Vital Signs - 24 hr 03/29/21 16:00 03/29/21 20:00 03/30/21 00:00 Temperature 97.1 F L 98.2 F Pulse Rate 84 84 100 Respiratory Rate 24 H 24 H 20 Blood Pressure 101/88 136/72 Pulse Oximetry 98 98 98 03/30/21 04:57 03/30/21 08:33 03/30/21 08:39 Temperature 98.4 F Pulse Rate 92 Respiratory Rate 22 H Blood Pressure 109/96 H Pulse Oximetry 92 98 98 Intake/Output Intake/Output: Intake & Output 03/27/21 03/28/21 03/29/21 03/30/21 23:59 23:59 23:59 23:59 Intake Total 300 1302 150 Output Total 150 200 301 Balance 150 1102 -151 Meds/Results Medications: Active Medications Generic Name Dose Route Start Last Admin Trade Name Freq PRN Reason Stop Dose Admin Acetaminophen 1,000 mg 03/30/21 06:04 03/30/21 06:33 Acetaminophen 500 Mg Tablet PO 1,000 mg TID PRN Administration Pain Rated 1-3 Acetazolamide 125 mg 03/29/21 09:00 03/30/21 08:28 Acetazolamide Tab 125 Mg Tablet PO 125 mg
[2021-03-30 17:06] LABS: SARS-CoV-2 RNA PCR Negative
[2021-03-30 17:24] LABS: Glucose Point of Care 242 (65-105)
[2021-03-30] MEDS: INSULIN ASPART (*BKC) 100 UNITS/ML SUB-Q (17:25)
[2021-03-30] MEDS: ALBUTEROL SULFATE (*SP) AEROSOL 1 PUFF INHALATION (20:43)
[2021-03-30] MEDS: traZODone HCL 50 MG TABLET 100 MG PO (20:47)
[2021-03-30 21:01] LABS: Glucose Point of Care 177 (65-105)
[2021-03-31 06:00] VITALS: BP 109/85; PULSE 79; RESP 21; TEMP 36.2; O2SAT 100
[2021-03-31] MEDS: LEVOTHYROXINE SODIUM 100 MCG TABLET PO (06:23)
[2021-03-31] MEDS: LEVOTHYROXINE SODIUM 75 MCG TABLET PO (06:23)
[2021-03-31] MEDS: PRAVASTATIN SODIUM 20 MG TABLET PO (08:35)
[2021-03-31] MEDS: BUMETANIDE 1 MG TABLET 2 MG PO ×2 (08:35→18:21)
[2021-03-31] MEDS: IRBESARTAN 75 MG TABLET PO (08:35)
[2021-03-31] MEDS: VENLAFAXINE HCL XR 75 MG CAP.ER.24H PO ×2 (08:36→20:12)
[2021-03-31] MEDS: HEPARIN SODIUM 5,000 UNITS/ML VIAL 5000 UNITS SUB-Q ×2 (08:36→20:11)
[2021-03-31] MEDS: TOLNAFTATE 1% POWDER 45 GM BTL 1 APPLIC TOPICAL ×2 (08:37→20:14)
[2021-03-31 08:46] VITALS: O2SAT 94
[2021-03-31 08:46] LABS: Glucose Point of Care 131 (65-105)
[2021-03-31] MEDS: metOLazone 5 MG TABLET PO (09:49)
[2021-03-31 10:25] LABS: Alveolar/Arterial O2 Gradient 19.9 mmHg; Base Excess ABG 3.4 mEq/l (+/-2.0); Fractional Inspired Oxygen 24 %; HCO3 ABG 28.2 mEq/l (22.0-26.0); Oxygen Content ABG 16.6 %vol (16.0-22.0); Oxygen Saturation ABG 97.7 % (95.0-100.0); Oxyhemoglobin 96.2 % THb (90.0-100.0); PCO2 ABG 43.3 mmHg (35.0-45.0); PO2 ABG 99.7 mmHg (80.0-100.0); PO2 FiO2 Ratio Arterial Blood 4.15 %; Total Hemoglobin 12.2 g/dL (12.0-18.0); pH ABG 7.431 (7.350-7.450)
[2021-03-31 10:26] LABS: Device NASAL CANNULA; Modified Allen's Test Pass; Site Drawn RIGHT RADIAL
[2021-03-31] MEDS: ASPIRIN 81 MG ENTERIC TABLET PO (13:04)
[2021-03-31] MEDS: INSULIN ASPART (*BKC) 100 UNITS/ML SUB-Q ×2 (13:07→18:17)
[2021-03-31 13:23] LABS: Glucose Point of Care 237 (65-105)
--- NOTE | 2021-03-31 13:38 | PM.PNORT ---
Progress Note: A&P Assessment and Plan (1) Insufficiency fracture of tibia: Qualifiers: Encounter type: initial encounter Qualified Code(s): M84.469A - Pathological fracture, unspecified tibia and fibula, initial encounter for fracture Code(s): M84.469A - Pathological fracture, unspecified tibia and fibula, initial encounter for fracture Status: Acute (2) Closed fracture dislocation of ankle with malunion: Qualifiers: Laterality: right Qualified Code(s): S82.891P - Other fracture of right lower leg, subsequent encounter for closed fracture with malunion Code(s): S82.899P - Other fracture of unspecified lower leg, subsequent encounter for closed fracture with malunion Status: Acute Assessment and Plan: Non distplaced distal tibia insufficiency fracture. Splint changed to a cast. Remain non weight bearing. Pivot transfers. F/u in 4 weeks with x-ray. April discharge when ready. Subjective Subjective Date/Time Seen: 04/01/21 13:38 Interval history: Moderate pain with activity. Exam Narrative: Exam Narrative: More alert. Minimal ankle swelling. Tender at the distal tibia metaphysis. Non tender at the ankle joint. No effusion. Neurovascular intact. Objective Data Vital Signs Vital Signs: Vital Signs - 24 hr 03/31/21 14:00 03/31/21 18:26 03/31/21 20:00 Temperature 36.6 C 36.6 C Pulse Rate 73 Respiratory Rate 16 Blood Pressure 110/56 L Pulse Oximetry 97 98 03/31/21 22:00 04/01/21 06:00 04/01/21 09:09 Temperature 37.0 C 36.9 C Pulse Rate 101 H 98 Respiratory Rate 18 16 Blood Pressure 135/55 L 138/57 L Pulse Oximetry 98 97 95 Intake/Output Intake/Output: Intake & Output 03/29/21 03/30/21 03/31/21 04/01/21 23:59 23:59 23:59 23:59 Intake Total 6563 602 5541 480 Output Total 208 905 9061 600 Balance 1102 369 110 -120 Meds/Results Medications: Active Medications Generic Name Dose Route Start Last Admin Trade Name Freq PRN Reason Stop Dose Admin Acetaminophen 1,000 mg 03/30/21 06:04 04/01/21 09:12 Acetaminophen 500 Mg Tablet PO 1,000 mg TID PRN Administration Pain Rated 1-3 Acetazolamide 125 mg 03/29/21 09:00 04/01/21 09:15 Acetazolamide Tab 125 Mg Tablet PO 125 mg DAILY ANY Administration Albuterol 1 puff 03/28/21 17:28 03/30/21 20:43 Albuterol Sulfate (*Sp) Aerosol 1 Puff INHALATION 1 puff Q4H PRN Administration Shortness Of Breath Aspirin 81 mg 03/31/21 09:00 04/01/21 09:15 Aspirin 81 Mg Enteric Tablet PO 81 mg QAM ANY Administration Bumetanide 2 mg 03/28/21 17:00 04/01/21 09:15 Bumetanide 1 Mg Tablet PO 2 mg BID ANY Administration Dextrose 12.5 gm 03/28/21 17:31 Dextrose 50% 25 Gm/50 Ml Syringe IV PUSH PRN PRN Hypoglycemia Protocol Glucagon 1 mg 03/28/21 17:31 Glucagon For Inj 1 Mg Vial IM PRN PRN Hypoglycemia Protocol Glucose 15 gm 03/28/21 17:31 Glucose Oral Gel 15 Gm Of Glucse In 37.5 Gm Tube PO PRN PRN Hypoglycemia Protocol Heparin Sodium (Porcine) 5,000 units 03/28/21 21:00 04/01/21 09:16 Heparin Sodium 5,000 Units/Ml Vial SUB-Q 5,000 units Q12HR ANY Administration Dextrose 1,000 mls @ 100 mls/hr 03/28/21 17:31 Dextrose 5% 1,000 Ml IVPB PRN PRN Hypoglycemia Protocol Insulin Aspart 3 - 6 units 03/28/21 17:00 04/01/21 12:00 Insulin Aspart (*Bkc) 100 Units/Ml SUB-Q Not Given TIDWM [facility] Protocol Insulin Lispro Protam/Lispro Human 20 units 03/31/21 17:00 04/01/21 08:10 Insulin Npl/Insulin Lispro 75/25 100 Units/Ml Vial (*Bkc) SUB-Q Not Given BID@0800,1700 [facility] Irbesartan 75 mg 03/29/21 09:00 04/01/21 09:15 Irbesartan 75 Mg Tablet PO 75 mg DAILY ANY Administration Levothyroxine Sodium 100 mcg 03/29/21 06:30 04/01/21 05:54 Levothyroxine Sodium 100 Mcg Tablet PO 100 mcg DAILY@0630 [facility] Administration Levothyroxin
[2021-03-31 14:00] VITALS: BP 110/56; PULSE 73; RESP 16; TEMP 36.6; O2SAT 97
--- NOTE | 2021-03-31 14:46 | PM.IMPN ---
Progress Note: A&P Assessment and Plan (1) Chronic combined systolic and diastolic CHF (congestive heart failure): Code(s): I50.42 - Chronic combined systolic (congestive) and diastolic (congestive) heart failure Status: Acute Assessment and Plan: Echocardiogram Non sustained VT on quality assurance monitor final and tele potassium and magnesium levels continue diuretics serial troponins Pt to be kept on telemetry. (2) Closed fracture dislocation of ankle with malunion: Qualifiers: Laterality: right Qualified Code(s): S82.891P - Other fracture of right lower leg, subsequent encounter for closed fracture with malunion Code(s): S82.899P - Other fracture of unspecified lower leg, subsequent encounter for closed fracture with malunion Status: Acute Assessment and Plan: Pt had cast in ED consult orthopedics DR Jones Follow Ortho recs PT OT PLANNING FOR A SNF (3) Diabetes mellitus: Code(s): E11.9 - Type 2 diabetes mellitus without complications Status: Acute Assessment and Plan: Accuchecks, SSI as needed Order HBa1c CONTINUE TO MONITOR (4) Coronary artery disease: Code(s): I25.10 - Atherosclerotic heart disease of [place] coronary artery without angina pectoris Status: Acute Assessment and Plan: Stable Continue meds NO CHEST PAIN (5) Depression: Code(s): F32.9 - Major depressive disorder, single episode, unspecified Status: Acute Assessment and Plan: Continue patients medication Stable (6) Hypothyroidism: Code(s): E03.9 - Hypothyroidism, unspecified Status: Acute Assessment and Plan: Continue patients medication Stable (7) Essential hypertension: Code(s): I10 - Essential (primary) hypertension Status: Acute Assessment and Plan: Continue patients medication Stable (8) Hyperlipidemia: Code(s): E78.5 - Hyperlipidemia, unspecified Status: Acute Assessment and Plan: Continue patients medication Stable (9) CKD (chronic kidney disease): Code(s): N18.9 - Chronic kidney disease, unspecified Status: Acute Assessment and Plan: Cr is 1.8 Will monitor At baseline Subjective Date/time seen: 03/31/21 14:46 I FEEL FINE Review of Systems Review of Systems: All systems reviewed & are unremarkable except as noted in HPI and below Exam Narrative: Exam Narrative: PATIENT IS SITTING IN CHAIR Const: General: other (pleasant lady poor historian pt loks slightly swollen face and hands ) Nutritional Appearance: overweight Orientation/consciousness: oriented to person HENMT: Head: normal to inspection Resp: Effort & Inspection: no respiratory distress Auscultation: no rhonchi and no wheezes Cardio: Rate: regular rate Rhythm: regular rhythm GI: Inspection: normal to inspection Auscultation: normal bowel sounds Neuro: General: oriented to person Extrem: General: other (R ankle in cast, L finger in splint ) Objective Data Vital Signs Vital Signs: Vital Signs - 24 hr 03/30/21 20:30 03/30/21 22:00 03/31/21 06:00 Temperature 98.4 F 97.1 F L Pulse Rate 80 79 Respiratory Rate 21 H 21 H Blood Pressure 117/58 L 109/85 Pulse Oximetry 100 100 100 03/31/21 08:46 Temperature Pulse Rate Respiratory Rate Blood Pressure Pulse Oximetry 94 Intake/Output Intake/Output: Intake & Output 03/28/21 03/29/21 03/30/21 03/31/21 23:59 23:59 23:59 23:59 Intake Total 300 1302 670 520 Output Total 150 200 301 600 Balance 150 1102 369 -80 Meds/Results Medications: Active Medications Generic Name Dose Route Start Last Admin Trade Name Freq PRN Reason Stop Dose Admin Acetaminophen 1,000 mg 03/30/21 06:04 03/30/21 17:20 Acetaminophen 500 Mg Tablet PO 1,000 mg TID PRN Administration Pain Rated 1-3 Acetazolamide 125 mg 03/29/21 09:00 03/31/21 08:35 Acetazolamide Tab 125 Mg Tablet PO 12
[2021-03-31] MEDS: ACETAMINOPHEN 500 MG TABLET 1000 MG PO (15:43)
[2021-03-31 18:26] VITALS: TEMP 36.6
[2021-03-31 18:34] LABS: Glucose Point of Care 272 (65-105)
[2021-03-31 20:00] VITALS: O2SAT 98
[2021-03-31] MEDS: traZODone HCL 50 MG TABLET 100 MG PO (20:11)
[2021-03-31 20:18] LABS: Glucose Point of Care 130 (65-105)
[2021-03-31 22:00] VITALS: BP 135/55; PULSE 101; RESP 18; TEMP 37; O2SAT 98
--- NOTE | 2021-03-31 23:28 | PCRCNOTE ---
Patient refused apnea link.
[2021-04-01] MEDS: LORazepam (*CRX) 1 MG TABLET PO (00:03)
[2021-04-01] MEDS: LEVOTHYROXINE SODIUM 75 MCG TABLET PO (05:54)
[2021-04-01] MEDS: LEVOTHYROXINE SODIUM 100 MCG TABLET PO (05:54)
[2021-04-01 06:00] VITALS: BP 138/57; PULSE 98; RESP 16; TEMP 36.9; O2SAT 97
[2021-04-01 07:56] LABS: Glucose Point of Care 91 (65-105)
[2021-04-01 08:53] LABS: Hematocrit 36.7 % (37.0-47.0); Hemoglobin 11.6 g/dL (12.0-15.0); Mean Corpuscular HGB Conc 31.6 g/dl (32-36); Mean Corpuscular Hemoglobin 30.8 pg (26-34); Mean Corpuscular Volume 97.3 fl (80-100); Mean Platelet Volume 10.7 fl (7.4-10.4); Platelet Count Result 188 k/mm3 (150-375); Red Blood Count 3.77 M/mm3 (4.2-5.4); Red Cell Distribution Width 14.5 % (11.5-14.5); White Blood Count 8.4 K/mm3 (4.5-10.0)
[2021-04-01 09:04] LABS: Anion Gap 5 mmol/L (8-16); Blood Urea Nitrogen 61 mg/dL (7-17); Calcium 7.9 mg/dL (8.4-10.2); Carbon Dioxide 34 mmol/L (22-30); Chloride 99 mmol/L (98-107); Estimated CRCL calculation 23 ml/min; Estimated Glomerular Filt Rate 27; Glucose 105 mg/dL (65-105); Potassium 3.1 mmol/L (3.4-5.0); Sodium 138 mmol/L (137-145)
[2021-04-01 09:09] VITALS: O2SAT 95
[2021-04-01] MEDS: ACETAMINOPHEN 500 MG TABLET 1000 MG PO (09:12)
[2021-04-01] MEDS: ASPIRIN 81 MG ENTERIC TABLET PO (09:15)
[2021-04-01] MEDS: PRAVASTATIN SODIUM 20 MG TABLET PO (09:15)
[2021-04-01] MEDS: VENLAFAXINE HCL XR 75 MG CAP.ER.24H PO (09:15)
[2021-04-01] MEDS: BUMETANIDE 1 MG TABLET 2 MG PO ×2 (09:15→17:08)
[2021-04-01] MEDS: IRBESARTAN 75 MG TABLET PO (09:15)
[2021-04-01] MEDS: HEPARIN SODIUM 5,000 UNITS/ML VIAL 5000 UNITS SUB-Q (09:16)
[2021-04-01] MEDS: TOLNAFTATE 1% POWDER 45 GM BTL 1 APPLIC TOPICAL (09:16)
[2021-04-01] MEDS: POTASSIUM CHLORIDE 20 MEQ PACKET (FOR LIQUID) 40 MEQ PO (09:27)
[2021-04-01 11:59] LABS: Glucose Point of Care 151 (65-105)
[2021-04-01 14:05] VITALS: BP 107/52; PULSE 75; RESP 16; TEMP 35.9; O2SAT 100
--- NOTE | 2021-04-01 14:38 | PM.DS ---
DS: Admitting Diagnosis Admitting Diagnosis Admitting Diagnosis: (1) Chronic combined systolic and diastolic CHF (congestive heart failure): Code(s): I50.42 - Chronic combined systolic (congestive) and diastolic (congestive) heart failure Status: Acute Assessment and Plan: I will order Echocardiogram as patient is having Non sustained VT on EKG and monitor pt and tele I will order potassium and magnesium levels I will continue diuretics I [place] order serial troponins Pt to be kept on telemetry. (2) Closed fracture dislocation of ankle with malunion: Qualifiers: Laterality: right Qualified Code(s): S82.891P - Other fracture of right lower leg, subsequent encounter for closed fracture with malunion Code(s): S82.899P - Other fracture of unspecified lower leg, subsequent encounter for closed fracture with malunion Status: Acute Assessment and Plan: Pt had cast in ED, I will consult orthopedics DR Jones (3) Diabetes mellitus: Code(s): E11.9 - Type 2 diabetes mellitus without complications Status: Acute Assessment and Plan: Accuchecks, SSI, Order HBaic (4) Coronary artery disease: Code(s): I25.10 - Atherosclerotic heart disease of [place] coronary artery without angina pectoris Status: Acute Assessment and Plan: Continue patients medication (5) Depression: Code(s): F32.9 - Major depressive disorder, single episode, unspecified Status: Acute Assessment and Plan: Continue patients medication (6) Hypothyroidism: Code(s): E03.9 - Hypothyroidism, unspecified Status: Acute Assessment and Plan: Continue patients medication (7) Essential hypertension: Code(s): I10 - Essential (primary) hypertension Status: Acute Assessment and Plan: Continue patients medication (8) Hyperlipidemia: Code(s): E78.5 - Hyperlipidemia, unspecified Status: Acute Assessment and Plan: Continue patients medication (9) CKD (chronic kidney disease): Code(s): N18.9 - Chronic kidney disease, unspecified Status: Acute Assessment and Plan: CReat is 1.8 which is at patient baseline continue to watch BMP. Richie as patient is on diuretics DS: Discharge Diagnosis Discharge Diagnosis (1) Chronic combined systolic and diastolic CHF (congestive heart failure): Code(s): I50.42 - Chronic combined systolic (congestive) and diastolic (congestive) heart failure Status: Acute Assessment and Plan: Echocardiogram Non sustained VT on potline monitor and tele potassium and magnesium levels continue diuretics serial troponins Pt to be kept on telemetry. (2) Closed fracture dislocation of ankle with malunion: Qualifiers: Laterality: right Qualified Code(s): S82.891P - Other fracture of right lower leg, subsequent encounter for closed fracture with malunion Code(s): S82.899P - Other fracture of unspecified lower leg, subsequent encounter for closed fracture with malunion Status: Acute Assessment and Plan: Pt had cast in ED consult orthopedics DR Jones Follow Ortho recs PT OT PLANNING FOR A SNF (3) Diabetes mellitus: Code(s): E11.9 - Type 2 diabetes mellitus without complications Status: Acute Assessment and Plan: Accuchecks, SSI as needed Order HBa1c CONTINUE TO MONITOR (4) Coronary artery disease: Code(s): I25.10 - Atherosclerotic heart disease of [place] coronary artery without angina pectoris Status: Acute Assessment and Plan: Stable Continue meds NO CHEST PAIN (5) Depression: Code(s): F32.9 - Major depressive disorder, single episode, unspecified Status: Acute Assessment and Plan: Continue patients medication Stable (6) Hypothyroidism: Code(s): E03.9 - Hypothyroidism, unspecified Status: Acute Assessment and Plan: Continue patients medication St
[2021-04-01 16:51] LABS: Glucose Point of Care 250 (65-105)
[2021-04-01] MEDS: INSULIN ASPART (*BKC) 100 UNITS/ML SUB-Q (17:08)
--- NOTE | 2021-05-17 09:41 | PM.IMHP ---
H&P: HPI History of Present Illness Date/Time: 03/28/2021 Chief Complaint: FALL Narrative: Pt had a unwitnessed fall out of her bed, pt has a history of ankle deformity, presently pt has acute nondisplaced right distal tibial metadiaphyseal fracture of her right ankle and sustained a comminuted fracture of fifth proximal phalanx. PT has multiple problems including dementia, DM, CHF, HTN CAD and COPD, hypothyoidism, thyroid cancer. Presently pts creat is 1.8, her trop is 0.051 her ekg shows ATRIAL FIBRILLATION, LEFT AXIS DEVIATION, LEFT BUNDLE BRANCH BLOCK. Pt had some non sustained VT tach on tele. So we are going to admit to telemetry. And consult orthopedics. Pt has been seeing DR Jones orthopedics, for her right ankle, in the past. Difficult to get accurate history about fall as pt has dementia and it was unwitnessed. Pt had Ct head, CT- spine in ED. Review of Systems Review of Systems: All systems reviewed & are unremarkable except as noted in HPI and below PMFSH Past Medical History Medical History Breast lump Chronic combined systolic and diastolic CHF (congestive heart failure) Closed fracture dislocation of ankle with malunion Coronary artery disease Depression Diabetes mellitus Diabetic retinopathy Essential hypertension Hyperlipidemia Hypothyroidism Thyroid cancer Thyroid nodule Surgical History Surgical History History of carpal tunnel release History of cholecystectomy History of knee replacement (~2000) History of knee replacement (~2007) History of partial hysterectomy History of tonsillectomy Hx of CABG Family History Family History Father Family history of cataracts Family history of diabetes mellitus in first degree relative Family history of coronary artery disease, Onset Age: 80 Patient's father is , Onset Age: 80 Mother Family history of cataracts Family history of diabetes mellitus in first degree relative Family history of coronary artery disease, Onset Age: 70 Sibling Family history of cataracts Family history of diabetes mellitus in first degree relative Other Diabetes mellitus Family history of cardiovascular disease Social History Social History Smoking status: Never smoker Second hand tobacco smoke exposure: No Alcohol intake: never Substance use: never Gender identity (if verbalized by the patient): Female Spiritual care concerns: No Meds Home Medications and Allergies Home Medications Medication Instructions Recorded Confirmed Type blood sugar diagnostic, drum #51 each 11/11/19 03/28/21 Rx irbesartan 75 mg tablet 75 mg PO DAILY #30 tablet 11/11/19 03/28/21 Rx nystatin 100,000 unit/gram topical 1 applic TOPICAL BID #15 gm 11/11/19 03/28/21 Rx powder lorazepam [Ativan] 1 mg PO BID PRN 07/15/20 03/28/21 History flash glucose sensor #2 each 12/04/20 03/28/21 Rx lancets 28 gauge #100 ea 12/05/20 03/28/21 Rx acetazolamide 125 mg PO DAILY 03/28/21 03/28/21 History albuterol sulfate [ProAir HFA] 1 inhalation INHALATION Q4H PRN 03/28/21 03/28/21 History bumetanide 2 mg PO BID 03/28/21 03/28/21 History insulin lispro protamin-lispro 20 unit SUBCUT BID 03/28/21 03/28/21 History [Humalog Mix 75-25 KwikPen] metolazone See Rx Instructions .ROUTE .COMPLEX 03/28/21 03/28/21 History pravastatin 20 mg PO DAILY 03/28/21 03/28/21 History trazodone 100 mg PO HS 03/28/21 03/28/21 History venlafaxine 75 mg PO BID 03/28/21 03/28/21 History aspirin 81 mg PO DAILY 03/29/21 03/29/21 History acetaminophen 1,000 mg PO TID PRN #90 tablet 04/01/21 Rx levothyroxine 175 mcg tablet 175 mcg PO DAILY #90 tablet 04/27/21 Rx Allergies Allergy/AdvReac Type Severity Reaction Status Date / Time No Known Allergies Allergy
== END 2021-04-01 18:19 | DRG 543 ==
LOC: ANHED 11:15 → ANHIMU 14:19 → ANH2MED 04-01 14:37 → ANHIMU 04-05 15:21
PROVIDERS: Admitting Provider Family Medicine; Emergency Provider Emergency Medicine; PCP Family Medicine; Visit Provider Internal Medicine
DX: M80.061A Age-related osteoporosis with current pathological fracture, right lower leg, initial encounter for fracture (principal); I47.2 Ventricular tachycardia; I13.0 Hypertensive heart and chronic kidney disease with heart failure and stage 1 through stage 4 chronic kidney disease, or unspecified chronic kidney disease; I50.42 Chronic combined systolic (congestive) and diastolic (congestive) heart failure; S82.891P Other fracture of right lower leg, subsequent encounter for closed fracture with malunion; S62.617A Displaced fracture of proximal phalanx of left little finger, initial encounter for closed fracture; Z20.822 Contact with and (suspected) exposure to COVID-19; N18.9 Chronic kidney disease, unspecified; I25.10 Atherosclerotic heart disease of native coronary artery without angina pectoris; F32.9 Major depressive disorder, single episode, unspecified; E03.9 Hypothyroidism, unspecified; E78.5 Hyperlipidemia, unspecified; F03.90 Unspecified dementia, unspecified severity, without behavioral disturbance, psychotic disturbance, mood disturbance, and anxiety; E11.319 Type 2 diabetes mellitus with unspecified diabetic retinopathy without macular edema; M19.071 Primary osteoarthritis, right ankle and foot; Z96.653 Presence of artificial knee joint, bilateral; Z95.1 Presence of aortocoronary bypass graft; Z85.850 Personal history of malignant neoplasm of thyroid; Z90.49 Acquired absence of other specified parts of digestive tract; W19.XXXA Unspecified fall, initial encounter
CPT/HCPCS: 36415; 36600; 70450; 71045; 72125; 73130; 73502; 73610; 80048; 80053; 81001; 82805; 82948; 83036; 83735; 84484; 85025; 85027; 85610; 85730; 93005; 96365; 96366; 96372; 96376; 97110; 97161; 97165; 97530; 99285; A9270; C9803; G0378; J0131; J1644; J1815; U0003; U0005

== ENCOUNTER 2021-05-17 14:49 | Inpatient (IN) | payer MEDICARE, SELFPAY ==
[2021-05-17] VITALS (25 sets, daily range): BP systolic 113–138; BP diastolic 60–89; PULSE 73–100; RESP 11–31; TEMP 36.1–36.9; O2SAT 93–100; BMI 38.6
--- NOTE | ~2021-05-17 | US_ITS ---
EXAMINATION: US abdomen limited DATE: 05/21/2021 09:20 INDICATION: Elevated liver enzymes TECHNIQUE: Multiple grayscale and Doppler ultrasound images of the abdomen were obtained. COMPARISON: MRI, 10/10/2017 FINDINGS: Bowel gas obscures visualization of the pancreas. The visualized portions of the pancreas a re unremarkable. The liver is normal with normal echogenicity and echotexture. No surface nodularity. There is to and fro flow in the portal vein, likely due to heart disease. The gallbladder is surgica lly absent. The common bile duct measures 7 mm, consistent with post cholecystectomy state. IMPRESSION: 1. No sonographic correlate for the patient's symptoms. 2. To and fro flow in the portal vein is likely due to heart disease. Reviewed, dictated and finalized at location A.
--- NOTE | ~2021-05-17 | XR_ITS ---
EXAMINATION: XR chest 1V portable INDICATION: Shortness of breath TECHNIQUE: Portable AP chest at 0513 hours COMPARISON: 05/17/2021 FINDINGS: There is stable cardiomegaly. A mild diffuse interstitial pattern persists without signific ant change. There is decreased opacification at the left costophrenic angle. No definite pleural effu kenzie or pneumothorax is identified. Median sternotomy wires and mediastinal surgical clips are seen, likely from prior coronary artery bypass grafting. IMPRESSION: 1. Cardiomegaly with stable pulmonary edema. 2. Improving left basilar airspace opacity, consistent with resolving pneumonia and/or effusion. Reviewed, dictated and finalized at location A.
--- NOTE | ~2021-05-17 | US_ITS ---
EXAMINATION: US venous doppler LE RT EXAM DATE: 05/17/2021 15:48 INDICATION: Right leg swelling. TECHNIQUE: Multiple grayscale, color flow and Doppler images of the right lower extremity deep venous system were obtained and reviewed. There is no prior study for comparison. FINDINGS: The right common femoral, femoral and profunda veins demonstrate normal color flow, respira tory variation, augmentation and compressibility. Compressibility, color flow confirmed within the r ight popliteal, posterior tibial, peroneal, and greater saphenous veins. IMPRESSION: 1. No right lower extremity deep venous thrombosis. Reviewed, dictated and finalized at location B.
--- NOTE | ~2021-05-17 | XR_ITS ---
XR chest 2V DATE: 05/17/2021 15:38 INDICATION: Shortness of breath TECHNIQUE: AP and lateral views COMPARISON: 03/28/2021 portable upright AP chest FINDINGS: Status post sternotomy. Cardiomegaly. Aortic arch and descending thoracic aortic and abdominal aortic calcification. Mild infiltrate and/atelectasis is noted in the mid and lower lung zones. The vertebral diagnosis inc ludes atelectasis, pneumonia and pulmonary edema. There is minimal if any pleural effusion. No pneumo thorax. Diffuse osteopenia. Osteoarthritic change at the glenohumeral joints. IMPRESSION: Cardiac megaly Mild infiltrate or atelectasis in the mid and lower lung zones; differential diagnosis includes pneum onia, atelectasis, congestive changes/pulmonary edema Reviewed, dictated and finalized at location A. IMPRESSION: Cardiac megaly Mild infiltrate or atelectasis in the mid and lower lung zones; differential di agnosis includes pneumonia, atelectasis, congestive changes/pulmonary edema
--- NOTE | ~2021-05-17 | US_ITS ---
US renal BI DATE: 05/20/2021 14:16 INDICATION: Elevated serum creatinine TECHNIQUE: Real-time imaging of kidneys and urinary bladder COMPARISON: : 05/12/2018 ultrasound of kidneys 10/10/2017 MRI abdomen: Multiple simple and hemorrhagic cysts of the kidneys were noted bilaterally, m easuring up to 3.5 cm 10/09/2017 ultrasound of kidneys 10/08/2017 CT abdomen pelvis with IV contrast material FINDINGS: Right renal length is estimated at 11.6 cm, left kidney 10.5 cm. Bilateral renal cysts are noted, the largest on the right measuring up to 4.1 cm, the largest on the left approximately 3.3 cm. No hydronephrosis of either kidney is evident. The urinary bladder is well demonstrated due to lack of distention. IMPRESSION: Bilateral renal cysts Reviewed, dictated and finalized at Location A. Reviewed, dictated and finalized at location A. IMPRESSION: Bilateral renal cysts
--- NOTE | 2021-05-17 15:25 | ED.GENADULT ---
HPI - General Adult General Chief complaint: Shortness of Breath/Dyspnea Stated complaint: sob Time Seen by Provider: 05/17/21 15:01 Source: patient History of Present Illness HPI narrative: Patient is a 86 y/o complain of moderate to severe SOB since 2 weeks ago. She states that her SOB is worse with exertion and supine position. She has no chest pain. She has some bilateral leg swelling, worse on right side. She also has some unintentional weight gain recently. Related Data Home Medications Medication Instructions Recorded Confirmed lorazepam [Ativan] 1 mg PO BID PRN 07/15/20 03/28/21 acetazolamide 125 mg PO DAILY 03/28/21 03/28/21 albuterol sulfate [ProAir HFA] 1 inhalation INHALATION Q4H PRN 03/28/21 03/28/21 bumetanide 2 mg PO BID 03/28/21 03/28/21 insulin lispro protamin-lispro 20 unit SUBCUT BID 03/28/21 03/28/21 [Humalog Mix 75-25 KwikPen] metolazone See Rx Instructions .ROUTE .COMPLEX 03/28/21 03/28/21 pravastatin 20 mg PO DAILY 03/28/21 03/28/21 trazodone 100 mg PO HS 03/28/21 03/28/21 venlafaxine 75 mg PO BID 03/28/21 03/28/21 aspirin 81 mg PO DAILY 03/29/21 03/29/21 apixaban [Eliquis] 5 mg PO BID 05/17/21 Allergies Allergy/AdvReac Type Severity Reaction Status Date / Time Sulfa (Sulfonamide Allergy Unknown Verified 05/17/21 15:02 Antibiotics) Review of Systems Constitutional: Constitutional: Denies chills, Denies fever(s), Denies headache(s) and Denies weakness Eyes: Eyes: Denies blurry vision ENT: Denies headache(s) and Denies neck pain Cardiovascular: Cardiovascular: Denies chest pain, Reports leg edema and Reports dyspnea Respiratory: Respiratory: Denies cough and Reports dyspnea Gastrointestinal: Gastrointestinal: Denies abdominal pain, Denies diarrhea, Denies nausea and Denies vomiting Genitourinary: Genitourinary: Denies hematuria and Denies dysuria Musculoskeletal: Musculoskeletal: Denies back pain and Denies neck pain Neurologic: Denies headache(s) and Denies weakness PMFSH Past Medical History Medical History (Updated 05/17/21 @ 19:42 by Arely Miguel MD) Breast lump Chronic combined systolic and diastolic CHF (congestive heart failure) Closed fracture dislocation of ankle with malunion Coronary artery disease Depression Diabetes mellitus Diabetic retinopathy Essential hypertension Hyperlipidemia Hypothyroidism Thyroid cancer Thyroid nodule Surgical History Surgical History History of carpal tunnel release History of cholecystectomy History of knee replacement (~2000) History of knee replacement (~2007) History of partial hysterectomy History of tonsillectomy Hx of CABG Family History Family History Father Family history of cataracts Family history of diabetes mellitus in first degree relative Family history of coronary artery disease, Onset Age: 80 Patient's father is , Onset Age: 80 Mother Family history of cataracts Family history of diabetes mellitus in first degree relative Family history of coronary artery disease, Onset Age: 70 Sibling Family history of cataracts Family history of diabetes mellitus in first degree relative Other Diabetes mellitus Family history of cardiovascular disease Social History Social History Smoking status: Never smoker Second hand tobacco smoke exposure: No Alcohol intake: never Substance use: never Gender identity (if verbalized by the patient): Female Spiritual care concerns: No Exam Const: General: no acute distress and well developed Orientation/consciousness: oriented to person, oriented to place, oriented to time and patient oriented x3 HENMT: Head: normocephalic Ears: external ears normal General nose exam: Normal external nose present Eyes: General: appearance normal, both eyes and all related st
--- NOTE | 2021-05-17 15:28 | ECG_ITS ---
Measurements Intervals [place] Rate: 81 P: NE: 0 QRS: -68 QRSD: 162 T: 100 QT: 428 QTc: 499 Interpretive Statements ATRIAL FIBRILLATION LEFT AXIS DEVIATION LEFT BUNDLE BRANCH BLOCK LOW VOLTAGE- LIMB LEADS BASELINE ARTIFACT- I, III, AVR, AVL, AVF BORDERLINE ECG Electronically Signed On 05-17-2021 19:37:54 CDT by Syed Gillespie D.O.
[2021-05-17 15:45] LABS: Basophils Percent Auto 0.2 % (0.2-1.2); Eosinophils Absolute Auto 0.1 K/mm3 (0-0.3); Hematocrit 22.9 % (37.0-47.0); Immature Granulocyte Absolute 0.04 K/mm3 (0.00-0.031); Immature Granulocyte Percent A 0.5 % (0-0.5); Lymphocytes Absolute Auto 1.04 K/mm3 (0.9-3.2); Lymphocytes Percent Auto 12.9 % (18.3-44.2); Mean Corpuscular HGB Conc 29.7 g/dl (32-36); Mean Corpuscular Hemoglobin 29.7 pg (26-34); Mean Platelet Volume 10.1 fl (7.4-10.4); Monocytes Percent Auto 11.9 % (2.6-8.5); Neutrophils Percent Auto 73.5 % (45.5-73.1); Platelet Count Result 297 k/mm3 (150-375); Red Blood Count 2.29 M/mm3 (4.2-5.4); Red Cell Distribution Width 16.2 % (11.5-14.5); White Blood Count 8.1 K/mm3 (4.5-10.0)
[2021-05-17 15:51] LABS: Anion Gap 10 mmol/L (8-16); Blood Urea Nitrogen 73 mg/dL (7-17); Carbon Dioxide 23 mmol/L (22-30); Chloride 103 mmol/L (98-107); Estimated CRCL calculation 28 ml/min; Estimated Glomerular Filt Rate 33; Glucose 149 mg/dL (65-105); Potassium 4.4 mmol/L (3.4-5.0); Sodium 136 mmol/L (137-145)
[2021-05-17 16:03] LABS: Hemoglobin 6.8 g/dL (12.0-15.0)
[2021-05-17 16:04] LABS: Hypochromasia 1+ (NORMAL); Platelet Estimate Adequate (Adequate)
[2021-05-17 16:05] LABS: Anisocytosis 2+ (NORMAL)
[2021-05-17] MEDS: FUROSEMIDE INJ 40 MG/4 ML VIAL IV PUSH (16:08)
[2021-05-17 16:45] LABS: D Dimer 0.42 ug/mL (<0.48)
[2021-05-17 16:46] LABS: NT Pro B Type Natriuretic Pept 8140 pg/mL (5-100)
[2021-05-17 16:58] LABS: Troponin I 0.093 ng/mL (0.000-0.034)
[2021-05-17 19:10] LABS: Troponin I 0.096 ng/mL (0.000-0.034)
[2021-05-17] MEDS: SODIUM CHLORIDE 0.9% IV 250 ML 30 ML IV CONT (20:58)
[2021-05-17] MEDS: TUBING, BLOOD PLUM PUMP TUBING 1 EACH XX (20:59)
--- NOTE | 2021-05-17 21:17 | ADMGEN ---
This patient, Fawn Montgomery, was admitted to 2 Medical Room 242-01. Patient/family oriented to hospital policies and general routines including ID bracelet, bed and alarms, visiting hours, pain management, procedures, bathroom and other care routines, personal items, smoking policy, room service/diet, and visiting hours. Information on how to activate the Rapid Response Team has been discussed. Patient/Family are encouraged to report perceived risks to care and to ask questions if they do not understand what they are told or what they should do.
[2021-05-17 21:59] LABS: Troponin I 0.097 ng/mL (0.000-0.034)
[2021-05-18] VITALS (13 sets, daily range): BP systolic 114–141; BP diastolic 62–80; PULSE 79–100; RESP 16–24; TEMP 36–36.3; O2SAT 96–100
[2021-05-18 05:32] LABS: Hematocrit 26.6 % (37.0-47.0); Hemoglobin 8.3 g/dL (12.0-15.0); Mean Corpuscular HGB Conc 31.2 g/dl (32-36); Mean Corpuscular Hemoglobin 29.5 pg (26-34); Mean Corpuscular Volume 94.7 fl (80-100); Mean Platelet Volume 10.4 fl (7.4-10.4); Platelet Count Result 289 k/mm3 (150-375); Red Blood Count 2.81 M/mm3 (4.2-5.4); Red Cell Distribution Width 15.6 % (11.5-14.5); White Blood Count 8.6 K/mm3 (4.5-10.0)
[2021-05-18 05:55] LABS: Anion Gap 11 mmol/L (8-16); Blood Urea Nitrogen 70 mg/dL (7-17); Calcium 8.3 mg/dL (8.4-10.2); Carbon Dioxide 22 mmol/L (22-30); Chloride 105 mmol/L (98-107); Estimated CRCL calculation 25 ml/min; Estimated Glomerular Filt Rate 29; Glucose 154 mg/dL (65-105); Potassium 4.5 mmol/L (3.4-5.0); Sodium 138 mmol/L (137-145)
--- NOTE | 2021-05-18 06:23 | PM.IMHP ---
H&P: HPI History of Present Illness Date/Time: 05/18/21 05:23 Chief Complaint: Shortness of breath Narrative: 86-year-old female with past medical history of systolic and diastolic congestive heart failure, chronic atrial fibrillation on chronic anticoagulation, chronic anemia, chronic kidney disease, and insulin-dependent diabetes mellitus presented to the ER from [place] due to shortness of breath. Of information is past medical records and patient report. Patient is a fair historian with moments of confusion. She reports that she has had a couple of weeks of increasing shortness of breath. She was hospitalized in March for CHF exacerbation. She has been taking her diuretic therapy as directed. She denies any chest pain. She has been having a cough over the last couple of weeks. She is reporting orthopnea paroxysmal nocturnal dyspnea. She denies any chest pain. She has been having some low back pain but this is somewhat chronic. She is on chronic anticoagulation due to atrial fibrillation. She does not know if she has been having any black stools or bloody stools. On intermediate records the patient's hemoglobin had trended from 9.8 on May 03 down to 7.1 on May 17. Her hemoglobin on April 01 had been 11.6. She denies any constipation. She has chronic urinary incontinence and wears depends. She has noticed some mild lower extremity edema right greater than left. Venous Doppler performed in the ER was negative for DVT. Patient has chronic deformity of the right ankle likely contributing to her lower extremity edema. She has multiple scattered her bruises to her forearms bilaterally. She denies any recent falls. Patient is alert oriented to person, place and reason for hospitalization. She is confused as to the month year and name of the current president. Nursing staff reports the patient is forgetful and is asking repetitive questions. The patient reportedly is also had a 15 lb weight gain over the last few days. The patient is at acute rehab following recent hospitalization March 2021. She is at rehab due to fracture distal tibial metaphysis. Review of Systems Review of Systems: Narrative: 12 systems were reviewed with pertinent positives and negatives per HPI. Except as documented in the HPI, all other systems were reviewed and are negative. [facility] Past Medical History Medical History (Updated 05/18/21 @ 07:09 by María Elena Luis DO) Breast lump Chronic combined systolic and diastolic CHF (congestive heart failure) Closed fracture dislocation of ankle with malunion Coronary artery disease Depression Diabetes mellitus Diabetic neuropathy Diabetic retinopathy Essential hypertension Hyperlipidemia Hypothyroidism associated with surgical procedure Left bundle branch block Legally blind Thyroid cancer Surgical History Surgical History (Updated 05/18/21 @ 06:41 by María Elena Luis, ) History of bilateral carpal tunnel release History of bilateral cataract extraction History of carpal tunnel release History of cholecystectomy History of knee replacement (~2000) History of knee replacement (~2007) History of partial hysterectomy History of thyroidectomy Due to papillary thyroid cancer History of tonsillectomy Hx of CABG (~2008) Four-vessel bypass performed at [facility] Status post open reduction with internal fixation of fracture Ankle malunion with fracture and osteoporosis with hardware removal 2019 with subsequent nondisplaced tibial distal metaphyseal fracture due to increased stress from angular deformity Status post open reduction with internal fixation of fracture Right femur fracture Family History Family History Father Family history of cataracts Family history of diabetes mellitus in first degree relative Family history of coronary artery disease, Onset Age: 80 Mother Family history of cataracts Fam
[2021-05-18 08:42] LABS: Glucose Point of Care 162 mg/dl (65-105)
--- NOTE | 2021-05-18 09:00 | PC.NURSE ---
Patient c/o being nauseated. Dry heaving noted with small amount clear emesis. Patient states she is not hungry and does not want to eat her breakfast. Complains of feeling short of breath at rest. VS obtained: T 97.1, HR 92, RR 24, pulse ox 99% on room air, BP 135/76. Called Linden Sharp NP and notified him of patient status. Orders received. Also discussed long acting insulin with patient being nauseated and refusing breakfast. Orders received to hold this a.m.'s dose.
[2021-05-18] MEDS: ONDANSETRON INJ 4 MG/2 ML VIAL IV PUSH ×2 (09:15→14:53)
[2021-05-18] MEDS: FUROSEMIDE INJ 100 MG/10 ML VIAL 80 MG IV PUSH ×2 (09:15→17:54)
[2021-05-18] MEDS: TOLNAFTATE 1% POWDER 45 GM BTL 1 APPLIC TOPICAL ×2 (11:08→17:55)
[2021-05-18 11:57] LABS: Hematocrit 29.3 % (37.0-47.0); Hemoglobin 9.1 g/dL (12.0-15.0)
[2021-05-18] MEDS: LEVOTHYROXINE SODIUM 100 MCG TABLET PO (12:30)
[2021-05-18 12:31] LABS: Glucose Point of Care 165 mg/dl (65-105)
[2021-05-18] MEDS: LEVOTHYROXINE SODIUM 75 MCG TABLET PO (12:31)
[2021-05-18] MEDS: VENLAFAXINE HCL XR 75 MG CAP.ER.24H PO ×2 (12:31→17:55)
--- NOTE | 2021-05-18 16:00 | PC.NURSE ---
Spoke with Linden Sharp [employer] on rounds and notified him that patient was able to take half of her morning meds but not all due to her continued nausea.
--- NOTE | 2021-05-18 16:44 | P.PNIM_ITS ---
Progress Note: A&P Assessment and Plan (1) CHF (congestive heart failure): Qualifiers: Heart failure chronicity: acute on chronic Heart failure type: unspecified Qualified Code(s): I50.9 - Heart failure, unspecified Code(s): I50.9 - Heart failure, unspecified Status: Acute Assessment and Plan: * BNP 8140 * 2+ pitting edema * Continue home acetazolamide 125mg PO daily * Hold bumetanide 2mg PO BID * 80mg Lasix IV BID * Strict I&Os * Trend labs * Labs in the am (2) Severe anemia: Code(s): D64.9 - Anemia, unspecified Status: Acute Assessment and Plan: * H/H 9.1/29.3 * 1 Unit transfused 05/18/21 * Trend H/H * Labs in the am * Transfuse as needed (3) CKD (chronic kidney disease): Qualifiers: Chronic kidney disease stage: stage 4 (severe) Qualified Code(s): N18.4 - Chronic kidney disease, stage 4 (severe) Code(s): N18.9 - Chronic kidney disease, unspecified Status: Acute Assessment and Plan: * GFR 29 CKD stage 4 * BUN/Creatinine 70/1.70 * Trend labs * Careful use of diuretics * Labs in the am (4) Diabetes mellitus: Qualifiers: Diabetes mellitus type: type 2 Diabetes mellitus snf insulin use: with snf use Diabetes mellitus complication status: with kidney complications Diabetes mellitus complication detail: with chronic kidney disease Chronic kidney disease stage: stage 4 (severe) Qualified Code(s): E11.22 - Type 2 diabetes mellitus with diabetic chronic kidney disease; N18.4 - Chronic kidney disease, stage 4 (severe); Z79.4 - terminal carman (current) use of insulin Code(s): E11.9 - Type 2 diabetes mellitus without complications Status: Acute Assessment and Plan: * Accu checks AC/HS * Continue home insulin 20units lispro BID * Sliding scale * Carb constant diet * Adjust medications as needed (5) Hyperlipidemia: Qualifiers: Hyperlipidemia type: mixed hyperlipidemia Qualified Code(s): E78.2 - Mixed hyperlipidemia Code(s): E78.5 - Hyperlipidemia, unspecified Status: Acute Assessment and Plan: * Continue home Pravastatin 20mg PO Daily * Will consider checking a lipid panel (6) Essential hypertension: Code(s): I10 - Essential (primary) hypertension Status: Acute Assessment and Plan: * BP 145/71 * Continue irbesartan 75mg PO Daily, Metolazone 5mg PO MO/ * Trend BP * Adjust medications as needed (7) Hypothyroidism: Qualifiers: Hypothyroidism type: unspecified Qualified Code(s): E03.9 - Hypothyroidism, unspecified Code(s): E03.9 - Hypothyroidism, unspecified Status: Acute Assessment and Plan: * Continue home levothyroxine 175mcg PO Daily (8) Depression with anxiety: Code(s): F41.8 - Other specified anxiety disorders Status: Acute Assessment and Plan: * Continue home effexor 75mg PO BID, Lorazepam 1mg PO BID PRN, and Trazodone 100mg PO HS (9) Diabetic neuropathy associated with type 2 diabetes mellitus: Code(s): E11.40 - Type 2 diabetes mellitus with diabetic neuropathy, unspecified Status: Acute Assessment and Plan: * Patient complains of chronic numbness and tingling * Glucose is 150-200s * Consider starting on gabapentin for neuropathy Time Spent Wi
--- NOTE | 2021-05-18 16:44 | PM.IMPN ---
Progress Note: A&P Assessment and Plan (1) CHF (congestive heart failure): Qualifiers: Heart failure chronicity: acute on chronic Heart failure type: unspecified Qualified Code(s): I50.9 - Heart failure, unspecified Code(s): I50.9 - Heart failure, unspecified Status: Acute Assessment and Plan: BNP 8140 2+ pitting edema Continue home acetazolamide 125mg PO daily Hold bumetanide 2mg PO BID 80mg Lasix IV BID Strict I&Os Trend labs Labs in the am (2) Severe anemia: Code(s): D64.9 - Anemia, unspecified Status: Acute Assessment and Plan: H/H 9.1/29.3 1 Unit transfused 05/18/21 Trend H/H Labs in the am Transfuse as needed (3) CKD (chronic kidney disease): Qualifiers: Chronic kidney disease stage: stage 4 (severe) Qualified Code(s): N18.4 - Chronic kidney disease, stage 4 (severe) Code(s): N18.9 - Chronic kidney disease, unspecified Status: Acute Assessment and Plan: GFR 29 CKD stage 4 BUN/Creatinine 70/1.70 Trend labs Careful use of diuretics Labs in the am (4) Diabetes mellitus: Qualifiers: Diabetes mellitus type: type 2 Diabetes mellitus longterm insulin use: with longterm use Diabetes mellitus complication status: with kidney complications Diabetes mellitus complication detail: with chronic kidney disease Chronic kidney disease stage: stage 4 (severe) Qualified Code(s): E11.22 - Type 2 diabetes mellitus with diabetic chronic kidney disease; N18.4 - Chronic kidney disease, stage 4 (severe); Z79.4 - longterm (current) use of insulin Code(s): E11.9 - Type 2 diabetes mellitus without complications Status: Acute Assessment and Plan: Accu checks AC/HS Continue home insulin 20units lispro BID Sliding scale Carb constant diet Adjust medications as needed (5) Hyperlipidemia: Qualifiers: Hyperlipidemia type: mixed hyperlipidemia Qualified Code(s): E78.2 - Mixed hyperlipidemia Code(s): E78.5 - Hyperlipidemia, unspecified Status: Acute Assessment and Plan: Continue home Pravastatin 20mg PO Daily Will consider checking a lipid panel (6) Essential hypertension: Code(s): I10 - Essential (primary) hypertension Status: Acute Assessment and Plan: BP 145/71 Continue irbesartan 75mg PO Daily, Metolazone 5mg PO MO/ Trend BP Adjust medications as needed (7) Hypothyroidism: Qualifiers: Hypothyroidism type: unspecified Qualified Code(s): E03.9 - Hypothyroidism, unspecified Code(s): E03.9 - Hypothyroidism, unspecified Status: Acute Assessment and Plan: Continue home levothyroxine 175mcg PO Daily (8) Depression with anxiety: Code(s): F41.8 - Other specified anxiety disorders Status: Acute Assessment and Plan: Continue home effexor 75mg PO BID, Lorazepam 1mg PO BID PRN, and Trazodone 100mg PO HS (9) Diabetic neuropathy associated with type 2 diabetes mellitus: Code(s): E11.40 - Type 2 diabetes mellitus with diabetic neuropathy, unspecified Status: Acute Assessment and Plan: Patient complains of chronic numbness and tingling Glucose is 150-200s Consider starting on gabapentin for neuropathy Time Spent With Patient Time with patient: Greater than 35 minutes Subjective Date/time seen: 05/18/21 15:30 Interval history: 86-year-old female with past medical history of systolic and diastolic congestive heart failure, chronic atrial fibrillation on chronic anticoagulation, chronic anemia, chronic kidney disease, and insulin-dependent diabetes mellitus presented to the ER from [place] due to shortness of breath. Patient is a fair historian and she really does not have many complaints. She did state that she has been very nauseous and has been vomiting. She did get some zofran
[2021-05-18 18:10] LABS: Glucose Point of Care 204 mg/dl (65-105)
[2021-05-18] MEDS: traZODone HCL 50 MG TABLET 100 MG PO (20:56)
[2021-05-18 21:31] LABS: Glucose Point of Care 121 mg/dl (65-105)
[2021-05-19] VITALS: PULSE 81
[2021-05-19 04:00] VITALS: PULSE 78
[2021-05-19 05:48] LABS: Hematocrit 28.1 % (37.0-47.0); Hemoglobin 8.6 g/dL (12.0-15.0); Mean Corpuscular HGB Conc 30.6 g/dl (32-36); Mean Corpuscular Hemoglobin 30.1 pg (26-34); Mean Corpuscular Volume 98.3 fl (80-100); Mean Platelet Volume 10.5 fl (7.4-10.4); Platelet Count Result 296 k/mm3 (150-375); Red Blood Count 2.86 M/mm3 (4.2-5.4); White Blood Count 10.5 K/mm3 (4.5-10.0)
[2021-05-19 06:00] VITALS: BP 145/71; PULSE 81; RESP 20; TEMP 36.1; O2SAT 96
[2021-05-19 06:20] LABS: Alanine Aminotransferase 126 U/L (4-35); Albumin Level 3.3 g/dL (3.5-5.1); Alkaline Phosphatase 128 U/L (38-126); Anion Gap 10 mmol/L (8-16); Aspartate Amino Transferase 233 U/L (14-36); Bilirubin,Total 0.7 mg/dL (0.2-1.3); Blood Urea Nitrogen 76 mg/dL (7-17); Calcium 8.3 mg/dL (8.4-10.2); Carbon Dioxide 25 mmol/L (22-30); Chloride 102 mmol/L (98-107); Estimated CRCL calculation 20 ml/min; Estimated Glomerular Filt Rate 22; Glucose 87 mg/dL (65-105); Magnesium 2.1 mg/dL (1.6-2.3); Potassium 4.3 mmol/L (3.4-5.0); Sodium 137 mmol/L (137-145)
[2021-05-19] MEDS: LEVOTHYROXINE SODIUM 100 MCG TABLET PO (06:20)
[2021-05-19] MEDS: LEVOTHYROXINE SODIUM 75 MCG TABLET PO (06:21)
[2021-05-19 08:01] LABS: Glucose Point of Care 71 mg/dl (65-105)
[2021-05-19] MEDS: LORazepam (*CRX) 1 MG TABLET PO (08:21)
[2021-05-19] MEDS: PRAVASTATIN SODIUM 20 MG TABLET PO (08:21)
[2021-05-19] MEDS: metOLazone 5 MG TABLET BY MOUTH (08:21)
[2021-05-19] MEDS: FUROSEMIDE INJ 40 MG/4 ML VIAL 20 MG IV PUSH (08:21)
[2021-05-19] MEDS: IRBESARTAN 75 MG TABLET PO (08:21)
[2021-05-19] MEDS: VENLAFAXINE HCL XR 75 MG CAP.ER.24H PO ×2 (08:21→17:37)
[2021-05-19] MEDS: ASPIRIN 81 MG CHEWABLE TABLET PO (08:21)
[2021-05-19] MEDS: ONDANSETRON INJ 4 MG/2 ML VIAL IV PUSH (08:21)
[2021-05-19] MEDS: TOLNAFTATE 1% POWDER 45 GM BTL 1 APPLIC TOPICAL ×2 (08:22→17:37)
[2021-05-19 12:10] LABS: Glucose Point of Care 123 mg/dl (65-105)
--- NOTE | 2021-05-19 13:58 | P.PNIM_ITS ---
Progress Note: A&P Assessment and Plan (1) CHF (congestive heart failure): Qualifiers: Heart failure chronicity: acute on chronic Heart failure type: unspecified Qualified Code(s): I50.9 - Heart failure, unspecified Code(s): I50.9 - Heart failure, unspecified Status: Acute Assessment and Plan: * BNP 8140 * Edema is better today * Continue home acetazolamide 125mg PO daily * Hold bumetanide 2mg PO BID * 80mg Lasix IV BID changed to 20mg IV once tomorrow * Renal failure worse today with creatinine of 2.10 * Strict I&Os * Trend labs * Labs in the am (2) Severe anemia: Code(s): D64.9 - Anemia, unspecified Status: Acute Assessment and Plan: * H/H 8.6/28.1 * 1 Unit transfused 05/18/21 * Trend H/H * Labs in the am * Transfuse as needed (3) CKD (chronic kidney disease): Qualifiers: Chronic kidney disease stage: stage 4 (severe) Qualified Code(s): N18.4 - Chronic kidney disease, stage 4 (severe) Code(s): N18.9 - Chronic kidney disease, unspecified Status: Acute Assessment and Plan: * GFR 22 CKD stage 4 * BUN/Creatinine 76/2.10 * Trend labs * Careful use of diuretics * Labs in the am * Dr. 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 Diabetes mellitus type: type 2 Qualified Code(s): E11.22 - Type 2 diabetes mellitus with diabetic chronic kidney disease; N18.4 - Chronic kidney disease, stage 4 (severe); Z79.4 - terminal operator (current) use of insulin Code(s): E11.9 - Type 2 diabetes mellitus without complications Status: Acute Assessment and Plan: * Accu checks AC/HS * Continue home insulin 20units lispro BID * Sliding scale * Carb constant diet * Adjust medications as needed (5) Hyperlipidemia: Qualifiers: Hyperlipidemia type: mixed hyperlipidemia Qualified Code(s): E78.2 - Mixed hyperlipidemia Code(s): E78.5 - Hyperlipidemia, unspecified Status: Acute Assessment and Plan: * Continue home Pravastatin 20mg PO Daily * Will consider checking a lipid panel (6) Essential hypertension: Code(s): I10 - Essential (primary) hypertension Status: Acute Assessment and Plan: * BP 145/71 * Continue irbesartan 75mg PO Daily, Metolazone 5mg PO MO/ * Trend BP * Adjust medications as needed (7) Hypothyroidism: Qualifiers: Hypothyroidism type: unspecified Qualified Code(s): E03.9 - Hypothyroidism, unspecified Code(s): E03.9 - Hypothyroidism, unspecified Status: Acute Assessment and Plan: * Continue home levothyroxine 175mcg PO Daily (8) Depression with anxiety: Code(s): F41.8 - Other specified anxiety disorders Status: Acute Assessment and Plan: * Continue home effexor 75mg PO BID, Lorazepam 1mg PO BID PRN, and Trazodone 100mg PO HS (9) Diabetic neuropathy associated with type 2 diabetes mellitus: Code(s): E11.40 - Type 2 diabetes mellitus with diabetic neuropathy, unspecified Status: Acute Assessment and Plan: * Patient complains of chronic numb
--- NOTE | 2021-05-19 13:58 | PM.IMPN ---
Progress Note: A&P Assessment and Plan (1) CHF (congestive heart failure): Qualifiers: Heart failure chronicity: acute on chronic Heart failure type: unspecified Qualified Code(s): I50.9 - Heart failure, unspecified Code(s): I50.9 - Heart failure, unspecified Status: Acute Assessment and Plan: BNP 8140 Edema is better today Continue home acetazolamide 125mg PO daily Hold bumetanide 2mg PO BID 80mg Lasix IV BID changed to 20mg IV once tomorrow Renal failure worse today with creatinine of 2.10 Strict I&Os Trend labs Labs in the am (2) Severe anemia: Code(s): D64.9 - Anemia, unspecified Status: Acute Assessment and Plan: H/H 8.6/28.1 1 Unit transfused 05/18/21 Trend H/H Labs in the am Transfuse as needed (3) CKD (chronic kidney disease): Qualifiers: Chronic kidney disease stage: stage 4 (severe) Qualified Code(s): N18.4 - Chronic kidney disease, stage 4 (severe) Code(s): N18.9 - Chronic kidney disease, unspecified Status: Acute Assessment and Plan: GFR 22 CKD stage 4 BUN/Creatinine 76/2.10 Trend labs Careful use of diuretics Labs in the am Dr. Timmons consulted thank you for your help (4) Diabetes mellitus: Qualifiers: Chronic kidney disease stage: stage 4 (severe) Diabetes mellitus complication detail: with chronic kidney disease Diabetes mellitus complication status: with kidney complications Diabetes mellitus joint terminal attack controller insulin use: with joint terminal attack controller use Diabetes mellitus type: type 2 Qualified Code(s): E11.22 - Type 2 diabetes mellitus with diabetic chronic kidney disease; N18.4 - Chronic kidney disease, stage 4 (severe); Z79.4 - USP (current) use of insulin Code(s): E11.9 - Type 2 diabetes mellitus without complications Status: Acute Assessment and Plan: Accu checks AC/HS Continue home insulin 20units lispro BID Sliding scale Carb constant diet Adjust medications as needed (5) Hyperlipidemia: Qualifiers: Hyperlipidemia type: mixed hyperlipidemia Qualified Code(s): E78.2 - Mixed hyperlipidemia Code(s): E78.5 - Hyperlipidemia, unspecified Status: Acute Assessment and Plan: Continue home Pravastatin 20mg PO Daily Will consider checking a lipid panel (6) Essential hypertension: Code(s): I10 - Essential (primary) hypertension Status: Acute Assessment and Plan: BP 145/71 Continue irbesartan 75mg PO Daily, Metolazone 5mg PO MO/ Trend BP Adjust medications as needed (7) Hypothyroidism: Qualifiers: Hypothyroidism type: unspecified Qualified Code(s): E03.9 - Hypothyroidism, unspecified Code(s): E03.9 - Hypothyroidism, unspecified Status: Acute Assessment and Plan: Continue home levothyroxine 175mcg PO Daily (8) Depression with anxiety: Code(s): F41.8 - Other specified anxiety disorders Status: Acute Assessment and Plan: Continue home effexor 75mg PO BID, Lorazepam 1mg PO BID PRN, and Trazodone 100mg PO HS (9) Diabetic neuropathy associated with type 2 diabetes mellitus: Code(s): E11.40 - Type 2 diabetes mellitus with diabetic neuropathy, unspecified Status: Acute Assessment and Plan: Patient complains of chronic numbness and tingling Glucose is 150-200s Consider starting on gabapentin for neuropathy Subjective Date/time seen: 05/19/21 11:00 Interval history: 86-year-old female with past medical history of systolic and diastolic congestive heart failure, chronic atrial fibrillation on chronic anticoagulation, chronic anemia, chronic kidney disease, and insulin-dependent diabetes mellitus presented to the ER from [place] due to shortness of breath. Daughter was in the room today and talked to me about her mothers care. She was requesting Dr. Melendez
[2021-05-19 14:00] VITALS: BP 125/82; PULSE 85; RESP 16; TEMP 36.4; O2SAT 98
--- NOTE | 2021-05-19 15:26 | PM.CNNEP ---
Assessment and Plan Additional Plan Chronic kidney disease: The patient has chronic kidney disease from diabetes hypertension and vascular disease. She follows with Dr. Timmons in the office. Her creatinine varies from draw to draw quite a bit generally ranging from about 1.5-2.0. Her creatinine was only 1.5 when she was admitted. It might have been lower than usual because of dilution. So when given diuretics and with a good urinary response thereto, her creatinine probably when up just because of hemoconcentration. There are less likely possibilities as well: Obstruction is always a possibility so we will get a renal ultrasound. Rhabdomyolysis is always a possibility as well so we can check a CPK. Other possibilities such as glomerulonephritis and interstitial nephritis are less likely in this clinical scenario. At this point will get renal ultrasound urine electrolytes and eosinophils and go from there. I agree with cutting back a little bit on her diuretics. Anemia: The patient received blood transfusions. Will also give Epogen. We can check iron levels as well. Hypertension:. It is running between 120 and 145. She is currently on Irbesartan, and metolazone. Will keep these going. Congestive heart failure: The patient has congestive heart failure. Apparently this is combined systolic and diastolic congestive heart failure. Did show some excess fluid and she received some diuretics. Diabetes: The patient is on Accu-Cheks and sliding-scale insulin History of DVT: The patient is on Eliquis. Venous Dopplers are negative this admission History of Present Illness Reason for Consult Consult date: 05/19/21 Chief Complaint Chief complaint: CHF, Anemia History of Present Illness Narrative: Fawn is a very pleasant 86-year-old lady who has chronic kidney disease under the care of Dr. Timmons, closed fracture of the right ankle, living at a alf for rehab temporarily, coronary disease, hypertension, hyperlipidemia, diabetes with neuropathy, retinopathy, and nephropathy, thyroid cancer, and congestive heart failure. The patient has been at the outpatient rehab facility and became short of breath and anemic so was sent over . The shortness of breath has been going on for a few days. At 1st it was when she lay flat but then became persistent. No fevers, chills, cough. No chest pain. In the ER they evaluated her and found her to be volume overloaded and anemic. They admitted her to the floor. IV diuretics and she is feeling better. The patient has chronic kidney disease. But generally has been running between 1.7 and 2.0. On admission this hospitalization, her creatinine was 1.5 but after diuretics it was up to 2.1. Patient denies bloody urine, foamy urine, kidney stones, or bladder infections. No pain with urination. Review of Systems Constitutional: Constitutional: Reports no additional constitutional complaints Eyes: Eyes: Reports no additional eye complaints ENT: Reports system reviewed and no additional complaints, except as documented Cardiovascular: Cardiovascular: Reports no additional cardiovascular complaints Respiratory: Respiratory: Reports no additional respiratory complaints Gastrointestinal: Gastrointestinal: Reports no additional gastrointestinal complaints Genitourinary: Genitourinary: Reports no additional female genitourinary complaints Musculoskeletal: Musculoskeletal: Reports no additional musculoskeletal complaints Integumentary/Breasts: Skin/Breast: Reports system reviewed and no additional complaints, except as docu Neurologic: Reports system reviewed and no additional complaints, except as documented Psychiatric: Psychiatric: Reports no additional psychiatric complaints Endocrine: Endocrine: Reports no additional endocrine complaints PMFSH Past Medical History Medical History Breast lump Chronic combined sys
[2021-05-19 17:26] LABS: Glucose Point of Care 163 mg/dl (65-105)
[2021-05-19 17:33] LABS: Iron 12 ug/dL (37-170)
[2021-05-19 17:43] LABS: Percent Iron Saturation 3 % (20-50)
[2021-05-19 20:27] VITALS: BP 112/66; PULSE 80; RESP 20; TEMP 36; O2SAT 92
[2021-05-19] MEDS: EPOETIN ALFA-EPBX 10,000 UNITS/ML VIAL 10000 UNITS SUB-Q (21:48)
[2021-05-19] MEDS: traZODone HCL 50 MG TABLET 100 MG PO (21:49)
[2021-05-19 22:40] LABS: Glucose Point of Care 139 mg/dl (65-105)
[2021-05-20 03:42] LABS: Creatinine Urine 92.7 mg/dL; Total Protein Urine Random 24 mg/dL; Ur Ttl Prot Creatinine Ratio 0.26 mg/mg (0-0.20)
[2021-05-20 03:46] LABS: Sodium Urine Random 30 meq/L
[2021-05-20 04:27] VITALS: BP 98/51; PULSE 79; RESP 22; TEMP 36.1; O2SAT 93
[2021-05-20 06:11] LABS: Alanine Aminotransferase 157 U/L (4-35); Alkaline Phosphatase 122 U/L (38-126); Anion Gap 9 mmol/L (8-16); Aspartate Amino Transferase 216 U/L (14-36); Bilirubin,Total 0.4 mg/dL (0.2-1.3); Blood Urea Nitrogen 82 mg/dL (7-17); Calcium 7.9 mg/dL (8.4-10.2); Carbon Dioxide 24 mmol/L (22-30); Chloride 105 mmol/L (98-107); Estimated CRCL calculation 19 ml/min; Estimated Glomerular Filt Rate 20; Glucose 69 mg/dL (65-105); Magnesium 2.2 mg/dL (1.6-2.3); Phosphorus 4.9 mg/dL (2.5-4.5); Potassium 3.8 mmol/L (3.4-5.0); Sodium 138 mmol/L (137-145)
[2021-05-20] MEDS: LEVOTHYROXINE SODIUM 75 MCG TABLET PO (06:12)
[2021-05-20] MEDS: LEVOTHYROXINE SODIUM 100 MCG TABLET PO (06:12)
[2021-05-20 06:16] LABS: NT Pro B Type Natriuretic Pept 12900 pg/mL (5-100)
[2021-05-20 07:20] LABS: Hemoglobin 8.4 g/dL (12.0-15.0); Mean Corpuscular Hemoglobin 30.1 pg (26-34); Mean Corpuscular Volume 100.4 fl (80-100); Mean Platelet Volume 10.8 fl (7.4-10.4); Platelet Count Result 256 k/mm3 (150-375); Red Blood Count 2.79 M/mm3 (4.2-5.4); Red Cell Distribution Width 15.9 % (11.5-14.5); White Blood Count 10.2 K/mm3 (4.5-10.0)
[2021-05-20 08:39] LABS: Glucose Point of Care 76 mg/dl (65-105)
[2021-05-20 09:50] VITALS: BP 140/98; PULSE 81; O2SAT 100
[2021-05-20] MEDS: ASPIRIN 81 MG CHEWABLE TABLET PO (09:51)
[2021-05-20] MEDS: IRBESARTAN 75 MG TABLET PO (09:51)
[2021-05-20] MEDS: VENLAFAXINE HCL XR 75 MG CAP.ER.24H PO ×2 (09:52→16:52)
[2021-05-20] MEDS: PRAVASTATIN SODIUM 20 MG TABLET PO (09:52)
[2021-05-20 09:55] VITALS: O2SAT 100
[2021-05-20] MEDS: TOLNAFTATE 1% POWDER 45 GM BTL 1 APPLIC TOPICAL ×2 (09:57→16:52)
[2021-05-20] MEDS: SILVERGEL (ELTA) 45 ML 1 APPLIC TOPICAL (09:57)
[2021-05-20] MEDS: FUROSEMIDE INJ 40 MG/4 ML VIAL 20 MG IV PUSH (10:07)
[2021-05-20 10:22] LABS: Eosinophil Urine None Seen % (None Seen)
[2021-05-20 11:23] LABS: Glucose Point of Care 146 mg/dl (65-105)
--- NOTE | 2021-05-20 13:02 | PM.PNNEP ---
Progress Note: A&P Additional Plan Chronic kidney disease: The patient has chronic kidney disease from diabetes hypertension and vascular disease. She follows with Dr. Timmons in the office. Her creatinine varies from draw to draw quite a bit generally ranging from about 1.5-2.0. Her creatinine was only 1.5 when she was admitted. It might have been lower than usual because of dilution. So when given diuretics and with a good urinary response thereto, her creatinine probably when up just because of hemoconcentration. Urine electrolytes are pre renal. Scant amount of urine protein. Renal sonogram is okay. Now her creatinine is up to 2.5. Will cut back her diuretics to her outpatient dose shins she is now out of heart failure. Anemia: The patient received blood transfusions. On Epogen. Iron levels are very low. Will give Venofer. Hypertension:. It is running between 120 and 145. She is currently on Irbesartan, and metolazone. Blood pressure seems to bring going up and down but is in a reasonable range from 100-140 Congestive heart failure: The patient has congestive heart failure. Apparently this is combined systolic and diastolic congestive heart failure. Volume status looks better. Diabetes: The patient is on Accu-Cheks and sliding-scale insulin History of DVT: The patient is on Eliquis. Venous Dopplers are negative this admission Subjective Date/time seen: 05/20/21 13:02 Interval history: Fawn is feeling better. She has no shortness of breath. Swelling is gone. She is sitting up in a chair eating lunch Review of Systems Cardiovascular: Cardiovascular: Reports no additional cardiovascular complaints Respiratory: Respiratory: Reports no additional respiratory complaints Gastrointestinal: Gastrointestinal: Reports no additional gastrointestinal complaints Genitourinary: Genitourinary: Reports no additional female genitourinary complaints Exam Narrative: Exam Narrative: WDWN in NAD skin no rash head ncat lungs clear cor reg no rub abd BS+ nontender and soft ext no edema. Objective Data Vital Signs Vital Signs: Vital Signs - 24 hr 05/19/21 14:00 05/19/21 20:27 05/20/21 04:27 Temperature 36.4 C 36.0 C L 36.1 C L Pulse Rate 85 80 79 Respiratory Rate 16 20 22 H Blood Pressure 125/82 112/66 98/51 L Pulse Oximetry 98 92 93 05/20/21 09:50 05/20/21 09:55 Temperature Pulse Rate 81 Respiratory Rate Blood Pressure 140/98 H Pulse Oximetry 100 100 Intake/Output Intake/Output: Intake & Output 05/17/21 05/18/21 05/19/21 05/20/21 23:59 23:59 23:59 23:59 Intake Total 0 1070 810 360 Output Total 200 300 300 Balance 0 870 510 60 Meds/Results Medications: Active Medications Generic Name Dose Route Start Last Admin Trade Name Em PRN Reason Stop Dose Admin Acetaminophen 1,000 mg 05/18/21 06:05 Acetaminophen 500 Mg Tablet PO TID PRN Pain Rated 1-3 Acetazolamide 125 mg 05/18/21 09:00 05/20/21 09:52 Acetazolamide Tab 125 Mg Tablet PO 125 mg DAILY ANY Administration Aspirin 81 mg 05/18/21 08:00 05/20/21 09:51 Aspirin 81 Mg Chewable Tablet PO 81 mg DAILY@0800 ANY Administration Furosemide 20 mg 05/19/21 09:00 05/20/21 10:07 Furosemide Inj 40 Mg/4 Ml Vial IV PUSH 20 mg DAILY ANY Administration Insulin Lispro Protam/Lispro Human 20 units 05/18/21 08:00 05/20/21 10:06 Insulin Npl/Insulin Lispro 75/25 100 Units/Ml Vial (*Bkc) SUB-Q Not Given BIDWM ANY Irbesartan 75 mg 05/18/21 09:00 05/20/21 09:51 Irbesartan 75 Mg Tablet PO 75 mg DAILY ANY Administration Levothyroxine Sodium 100 mcg 05/18/21 06:30 05/20/21 06:12 Levothyroxine Sodium 100 Mcg Tablet PO 100 mcg DAILY@0630 ANY Administration Levothyroxine Sodium 75 mcg 05/18/21 06:30 05/20/21 06:12 Levothyroxine Sodium 75 Mcg Tablet PO 75 mcg DAILY@0630 ANY Administration Lorazepam 1 mg 05/18/21 06:05 05/19/21 08:21
[2021-05-20 14:00] VITALS: BP 115/65; PULSE 64; RESP 14; TEMP 36.2; O2SAT 100
[2021-05-20] MEDS: GABAPENTIN 100 MG CAPSULE PO ×2 (14:54→16:52)
--- NOTE | 2021-05-20 15:41 | P.PNIM_ITS ---
Progress Note: A&P Assessment and Plan (1) CHF (congestive heart failure): Qualifiers: Heart failure chronicity: acute on chronic Heart failure type: unspecified Qualified Code(s): I50.9 - Heart failure, unspecified Code(s): I50.9 - Heart failure, unspecified Status: Acute Assessment and Plan: * BNP 26057 * Edema is better * Continue home acetazolamide 125mg PO daily * Hold bumetanide 2mg PO BID * 20mg of lasix today * Renal failure worse today with creatinine of 2.30 * Strict I&Os * Trend labs * Labs in the am (2) Severe anemia: Code(s): D64.9 - Anemia, unspecified Status: Acute Assessment and Plan: * H/H 8.4/28.0 * 1 Unit transfused 05/18/21 * Trend H/H * Labs in the am * Transfuse as needed (3) CKD (chronic kidney disease): Qualifiers: Chronic kidney disease stage: stage 4 (severe) Qualified Code(s): N18.4 - Chronic kidney disease, stage 4 (severe) Code(s): N18.9 - Chronic kidney disease, unspecified Status: Acute Assessment and Plan: * GFR 22 CKD stage 4 * BUN/Creatinine 82/2.30 * Trend labs * Careful use of diuretics * Labs in the am * Dr. Timmons consulted thank you for your help (4) Diabetes mellitus: Qualifiers: Diabetes mellitus type: type 2 Diabetes mellitus termite exterminator helper insulin use: with termite exterminator helper use Diabetes mellitus complication status: with kidney complications Diabetes mellitus complication detail: with chronic kidney disease Chronic kidney disease stage: stage 4 (severe) Qualified Code(s): E 11.22 - Type 2 diabetes mellitus with diabetic chronic kidney disease; N18.4 - Chronic kidney disease, stage 4 (severe); Z79.4 - buttermaker (current) use of insulin Code(s): E11.9 - Type 2 diabetes mellitus without complications Status: Acute Assessment and Plan: * Accu checks AC/HS * Continue home insulin 20units lispro BID * Sliding scale * Carb constant diet * Adjust medications as needed (5) Hyperlipidemia: Qualifiers: Hyperlipidemia type: mixed hyperlipidemia Qualified Code(s): E78.2 - Mixed hyperlipidemia Code(s): E78.5 - Hyperlipidemia, unspecified Status: Acute Assessment and Plan: * Continue home Pravastatin 20mg PO Daily * Will consider checking a lipid panel (6) Essential hypertension: Code(s): I10 - Essential (primary) hypertension Status: Acute Assessment and Plan: * BP 145/71 * Continue irbesartan 75mg PO Daily, Metolazone 5mg PO MO/ * Trend BP * Adjust medications as needed (7) Hypothyroidism: Qualifiers: Hypothyroidism type: unspecified Qualified Code(s): E03.9 - Hypothyroidism, unspecified Code(s): E03.9 - Hypothyroidism, unspecified Status: Acute Assessment and Plan: * Continue home levothyroxine 175mcg PO Daily (8) Depression with anxiety: Code(s): F41.8 - Other specified anxiety disorders Status: Acute Assessment and Plan: * Continue home effexor 75mg PO BID, Lorazepam 1mg PO BID PRN, and Trazodone 100mg PO HS (9) Diabetic neuropathy associated with type 2 diabetes mellitus: Code(s): E11.40 - Type 2 diabetes mellitus with diabetic neuropathy, unspecified Status: Acute Assessment and Plan: * Patient complains of chronic numbness and tingling * Gluc
--- NOTE | 2021-05-20 15:41 | PM.IMPN ---
Progress Note: A&P Assessment and Plan (1) CHF (congestive heart failure): Qualifiers: Heart failure chronicity: acute on chronic Heart failure type: unspecified Qualified Code(s): I50.9 - Heart failure, unspecified Code(s): I50.9 - Heart failure, unspecified Status: Acute Assessment and Plan: BNP 53773 Edema is better Continue home acetazolamide 125mg PO daily Hold bumetanide 2mg PO BID 20mg of lasix today Renal failure worse today with creatinine of 2.30 Strict I&Os Trend labs Labs in the am (2) Severe anemia: Code(s): D64.9 - Anemia, unspecified Status: Acute Assessment and Plan: H/H 8.4/28.0 1 Unit transfused // Trend H/H Labs in the am Transfuse as needed (3) CKD (chronic kidney disease): Qualifiers: Chronic kidney disease stage: stage 4 (severe) Qualified Code(s): N18.4 - Chronic kidney disease, stage 4 (severe) Code(s): N18.9 - Chronic kidney disease, unspecified Status: Acute Assessment and Plan: GFR 22 CKD stage 4 BUN/Creatinine 82/2.30 Trend labs Careful use of diuretics Labs in the am Dr. Timmons consulted thank you for your help (4) Diabetes mellitus: Qualifiers: Diabetes mellitus type: type 2 Diabetes mellitus snf insulin use: with snf use Diabetes mellitus complication status: with kidney complications Diabetes mellitus complication detail: with chronic kidney disease Chronic kidney disease stage: stage 4 (severe) Qualified Code(s): E11.22 - Type 2 diabetes mellitus with diabetic chronic kidney disease; N18.4 - Chronic kidney disease, stage 4 (severe); Z79.4 - intermodal truck driver (current) use of insulin Code(s): E11.9 - Type 2 diabetes mellitus without complications Status: Acute Assessment and Plan: Accu checks AC/HS Continue home insulin 20units lispro BID Sliding scale Carb constant diet Adjust medications as needed (5) Hyperlipidemia: Qualifiers: Hyperlipidemia type: mixed hyperlipidemia Qualified Code(s): E78.2 - Mixed hyperlipidemia Code(s): E78.5 - Hyperlipidemia, unspecified Status: Acute Assessment and Plan: Continue home Pravastatin 20mg PO Daily Will consider checking a lipid panel (6) Essential hypertension: Code(s): I10 - Essential (primary) hypertension Status: Acute Assessment and Plan: BP 145/71 Continue irbesartan 75mg PO Daily, Metolazone 5mg PO MO/ Trend BP Adjust medications as needed (7) Hypothyroidism: Qualifiers: Hypothyroidism type: unspecified Qualified Code(s): E03.9 - Hypothyroidism, unspecified Code(s): E03.9 - Hypothyroidism, unspecified Status: Acute Assessment and Plan: Continue home levothyroxine 175mcg PO Daily (8) Depression with anxiety: Code(s): F41.8 - Other specified anxiety disorders Status: Acute Assessment and Plan: Continue home effexor 75mg PO BID, Lorazepam 1mg PO BID PRN, and Trazodone 100mg PO HS (9) Diabetic neuropathy associated with type 2 diabetes mellitus: Code(s): E11.40 - Type 2 diabetes mellitus with diabetic neuropathy, unspecified Status: Acute Assessment and Plan: Patient complains of chronic numbness and tingling Glucose is 150-200s Consider starting on gabapentin for neuropathy (10) Elevated LFTs: Code(s): R79.89 - Other specified abnormal findings of blood chemistry Status: Acute Assessment and Plan: AST 216 alt 157 Will get ultrasound tomorrow Check hepatitis panel Subjective Date/time seen: 05/20/21 15:35 Interval history: 86-year-old female with past medical history of systolic and diastolic congestive heart failure, chronic atrial fibrillation on chronic anticoagulation, chronic anemia, chronic kidney disease, and insulin-de
[2021-05-20 17:48] LABS: Glucose Point of Care 173 mg/dl (65-105)
[2021-05-20] MEDS: traZODone HCL 50 MG TABLET 100 MG PO (20:05)
[2021-05-20 22:00] VITALS: BP 122/46; PULSE 76; RESP 20; TEMP 36.3; O2SAT 99
[2021-05-20 22:00] LABS: Glucose Point of Care 221 mg/dl (65-105)
[2021-05-21] MEDS: ACETAMINOPHEN 500 MG TABLET 1000 MG PO (03:24)
[2021-05-21 05:29] LABS: Basophils Percent Auto 0.3 % (0.2-1.2); Eosinophils Absolute Auto 0.2 K/mm3 (0-0.3); Eosinophils Percent Auto 2.4 % (0-4.4); Hematocrit 27.8 % (37.0-47.0); Hemoglobin 8.4 g/dL (12.0-15.0); Immature Granulocyte Absolute 0.04 K/mm3 (0.00-0.031); Immature Granulocyte Percent A 0.4 % (0-0.5); Lymphocytes Absolute Auto 0.98 K/mm3 (0.9-3.2); Lymphocytes Percent Auto 10.6 % (18.3-44.2); Mean Corpuscular HGB Conc 30.2 g/dl (32-36); Mean Corpuscular Hemoglobin 29.8 pg (26-34); Mean Corpuscular Volume 98.6 fl (80-100); Mean Platelet Volume 10.8 fl (7.4-10.4); Monocytes Absolute Auto 1.3 K/mm3 (0.1-0.6); Monocytes Percent Auto 13.8 % (2.6-8.5); Neutrophils Absolute Auto 6.7 K/mm3 (1.3-6.7); Neutrophils Percent Auto 72.5 % (45.5-73.1); Platelet Count Result 285 k/mm3 (150-375); Red Blood Count 2.82 M/mm3 (4.2-5.4); Red Cell Distribution Width 15.8 % (11.5-14.5); White Blood Count 9.2 K/mm3 (4.5-10.0)
[2021-05-21 05:39] LABS: Alanine Aminotransferase 159 U/L (4-35); Albumin Level 3.2 g/dL (3.5-5.1); Alkaline Phosphatase 129 U/L (38-126); Anion Gap 10 mmol/L (8-16); Aspartate Amino Transferase 152 U/L (14-36); Bilirubin,Total 0.5 mg/dL (0.2-1.3); Blood Urea Nitrogen 86 mg/dL (7-17); Calcium 7.9 mg/dL (8.4-10.2); Carbon Dioxide 23 mmol/L (22-30); Chloride 103 mmol/L (98-107); Estimated CRCL calculation 20 ml/min; Estimated Glomerular Filt Rate 21; Glucose 179 mg/dL (65-105); Potassium 4.2 mmol/L (3.4-5.0); Sodium 136 mmol/L (137-145)
[2021-05-21] MEDS: LEVOTHYROXINE SODIUM 100 MCG TABLET PO (05:43)
[2021-05-21] MEDS: LEVOTHYROXINE SODIUM 75 MCG TABLET PO (05:44)
[2021-05-21 05:55] LABS: Albumin Level 3.2 g/dL (3.5-5.1); Anion Gap 11 mmol/L (8-16); Blood Urea Nitrogen 84 mg/dL (7-17); Calcium 7.9 mg/dL (8.4-10.2); Carbon Dioxide 22 mmol/L (22-30); Chloride 103 mmol/L (98-107); Estimated CRCL calculation 20 ml/min; Estimated Glomerular Filt Rate 21; Glucose 179 mg/dL (65-105); Phosphorus 4.5 mg/dL (2.5-4.5); Potassium 4.2 mmol/L (3.4-5.0); Sodium 136 mmol/L (137-145)
[2021-05-21 06:00] VITALS: BP 111/49; PULSE 83; RESP 21; TEMP 36.4; O2SAT 100
[2021-05-21 06:18] LABS: Hepatitis B Surface Antigen Negative (Negative)
[2021-05-21 06:23] LABS: HAV RESULT Negative (Negative); Hepatitis B Core IgM Result Negative (Negative)
[2021-05-21 06:35] LABS: Hepatitis C Virus Antibody Negative (Negative)
[2021-05-21 07:53] LABS: Glucose Point of Care 145 mg/dl (65-105)
--- NOTE | 2021-05-21 08:12 | PM.PNNEP ---
Progress Note: A&P Additional Plan Chronic kidney disease: The patient has chronic kidney disease from diabetes hypertension and vascular disease. She follows with Dr. Timmons in the office. Her creatinine varies from draw to draw quite a bit generally ranging from about 1.5-2.0. Her creatinine was only 1.5 when she was admitted. It might have been lower than usual because of dilution. So when given diuretics and with a good urinary response thereto, her creatinine probably when up just because of hemoconcentration. Urine electrolytes are pre renal. Scant amount of urine protein. Renal sonogram is okay. her creatinine has fallen to 2.2. I think this is probably her new baseline. When she went up to 2.5 her loop diuretic was discontinued. Will resume this by mouth. Anemia: The patient received blood transfusions. On . She received a dose of EPO on Saturday. Will continue this Saturday Hypertension:. It is running between 120 and 145. She is currently on Irbesartan, and metolazone. Blood pressure seems to bring going up and down but is in a reasonable range from 100-140 Congestive heart failure: The patient has congestive heart failure. Apparently this is combined systolic and diastolic congestive heart failure. Volume status looks better. will get her back on maintenance diuretics. Social be on Bumex 2 mg a day and metolazone 5 mg a day. Diabetes: The patient is on Accu-Cheks and sliding-scale insulin History of DVT: The patient is on Eliquis. Venous Dopplers are negative this admission Subjective Date/time seen: 05/21/21 08:12 Interval history: Fawn is feeling better. She has no shortness of breath. No swelling. Lying in bed. Exam Narrative: Exam Narrative: WDWN in NAD skin no rash head ncat lungs clear Bilaterally cor reg no rub or gallop abd BS+ nontender and soft ext no edema. Objective Data Vital Signs Vital Signs: Vital Signs - 24 hr 05/20/21 09:50 05/20/21 09:55 05/20/21 14:00 Temperature 36.2 C L Pulse Rate 81 64 Respiratory Rate 14 Blood Pressure 140/98 H 115/65 Pulse Oximetry 100 100 100 05/20/21 22:00 05/21/21 06:00 Temperature 36.3 C L 36.4 C Pulse Rate 76 83 Respiratory Rate 20 21 H Blood Pressure 122/46 L 111/49 L Pulse Oximetry 99 100 Intake/Output Intake/Output: Intake & Output 05/18/21 05/19/21 05/20/21 05/21/21 23:59 23:59 23:59 23:59 Intake Total 9617 368 4060 450 Output Total 200 300 700 600 Balance 870 510 990 -150 Meds/Results Medications: Active Medications Generic Name Dose Route Start Last Admin Trade Name Freq PRN Reason Stop Dose Admin Acetaminophen 1,000 mg 05/18/21 06:05 05/21/21 03:24 Acetaminophen 500 Mg Tablet PO 1,000 mg TID PRN Administration Pain Rated 1-3 Acetazolamide 125 mg 05/18/21 09:00 05/20/21 09:52 Acetazolamide Tab 125 Mg Tablet PO 125 mg DAILY [facility] Administration Aspirin 81 mg 05/18/21 08:00 05/20/21 09:51 Aspirin 81 Mg Chewable Tablet PO 81 mg DAILY@0800 ANY Administration Gabapentin 100 mg 05/20/21 13:40 05/20/21 16:52 Gabapentin 100 Mg Capsule PO 100 mg TID ANY Administration Iron Sucrose 200 mg/ Sodium 60 mls @ 120 mls/hr 05/21/21 09:00 Chloride IVPB 05/25/21 09:01 QAM [facility] Insulin Lispro Protam/Lispro Human 20 units 05/18/21 08:00 05/20/21 10:06 Insulin Npl/Insulin Lispro 75/25 100 Units/Ml Vial (*Bkc) SUB-Q Not Given BIDWM [facility] Irbesartan 75 mg 05/18/21 09:00 05/20/21 09:51 Irbesartan 75 Mg Tablet PO 75 mg DAILY ANY Administration Levothyroxine Sodium 100 mcg 05/18/21 06:30 05/21/21 05:43 Levothyroxine Sodium 100 Mcg Tablet PO 100 mcg DAILY@0630 ANY Administration Levothyroxine Sodium 75 mcg 05/18/21 06:30 05/21/21 05:44 Levothyroxine Sodium 75 Mcg Tablet PO 75 mcg DAILY@0630 ANY Administration Lorazepam 1 mg 05/18/21 06:05 05/19/21 08:21
[2021-05-21 09:00] VITALS: O2SAT 97
[2021-05-21 09:43] VITALS: BP 114/65; PULSE 110
[2021-05-21] MEDS: ASPIRIN 81 MG CHEWABLE TABLET PO (09:44)
[2021-05-21] MEDS: PRAVASTATIN SODIUM 20 MG TABLET PO (09:44)
[2021-05-21] MEDS: IRBESARTAN 75 MG TABLET PO (09:44)
[2021-05-21] MEDS: VENLAFAXINE HCL XR 75 MG CAP.ER.24H PO ×2 (09:44→16:47)
[2021-05-21] MEDS: BUMETANIDE 1 MG TABLET 2 MG PO (09:44)
[2021-05-21] MEDS: GABAPENTIN 100 MG CAPSULE PO ×3 (09:44→16:47)
[2021-05-21] MEDS: TOLNAFTATE 1% POWDER 45 GM BTL 1 APPLIC TOPICAL ×2 (09:45→16:48)
[2021-05-21] MEDS: SILVERGEL (ELTA) 45 ML 1 APPLIC TOPICAL (09:45)
[2021-05-21] MEDS: IRON SUCROSE COMPLEX 200 MG in SODIUM CHLORIDE 0.9% IV 50 ML 120 MG IVPB (10:49)
[2021-05-21 11:59] LABS: Glucose Point of Care 220 mg/dl (65-105)
[2021-05-21 14:00] VITALS: BP 134/91; PULSE 67; RESP 16; TEMP 36.4; O2SAT 100
--- NOTE | 2021-05-21 14:24 | P.PNIM_ITS ---
Progress Note: A&P Assessment and Plan (1) CHF (congestive heart failure): Qualifiers: Heart failure chronicity: acute on chronic Heart failure type: unspecified Qualified Code(s): I50.9 - Heart failure, unspecified Code(s): I50.9 - Heart failure, unspecified Status: Acute Assessment and Plan: * BNP 04076 * Edema is better * Continue home acetazolamide 125mg PO daily * bumetanide 2mg PO BID restarted * Renal failure Better today with creatinine of 2.20 * Strict I&Os * Trend labs * Labs in the am (2) Severe anemia: Code(s): D64.9 - Anemia, unspecified Status: Acute Assessment and Plan: * H/H 8.4/27.8 * 1 Unit transfused 05/18/21 * Trend H/H * Labs in the am * Transfuse as needed (3) CKD (chronic kidney disease): Qualifiers: Chronic kidney disease stage: stage 4 (severe) Qualified Code(s): N18.4 - Chronic kidney disease, stage 4 (severe) Code(s): N18.9 - Chronic kidney disease, unspecified Status: Acute Assessment and Plan: * GFR 21 CKD stage 4 * BUN/Creatinine 86/2.20 * Trend labs * Careful use of diuretics * Labs in the am * Dr. Timmons consulted thank you for your help (4) Diabetes mellitus: Qualifiers: Chronic kidney disease stage: stage 4 (severe) Diabetes mellitus complication detail: with chronic kidney disease Diabetes mellitus complication status: with kidney complications Diabetes mellitus watermelon inspector insulin use: with detention use Diabetes mellitus type: type 2 Qualified Code(s): E11.22 - Type 2 diabetes mellitus with diabetic chronic kidney disease; N18.4 - Chronic kidney disease, stage 4 (severe); Z79.4 - assisted (current) use of insulin Code(s): E11.9 - Type 2 diabetes mellitus without complications Status: Acute Assessment and Plan: * Accu checks AC/HS * Continue home insulin 20units lispro BID * Sliding scale * Carb constant diet * Adjust medications as needed (5) Hyperlipidemia: Qualifiers: Hyperlipidemia type: mixed hyperlipidemia Qualified Code(s): E78.2 - Mixed hyperlipidemia Code(s): E78.5 - Hyperlipidemia, unspecified Status: Acute Assessment and Plan: * Continue home Pravastatin 20mg PO Daily * Will consider checking a lipid panel (6) Essential hypertension: Code(s): I10 - Essential (primary) hypertension Status: Acute Assessment and Plan: * BP 134/91 * Continue irbesartan 75mg PO Daily, Metolazone 5mg PO MO/ * Trend BP * Adjust medications as needed (7) Hypothyroidism: Qualifiers: Hypothyroidism type: unspecified Qualified Code(s): E03.9 - Hypothyroidism, unspecified Code(s): E03.9 - Hypothyroidism, unspecified Status: Acute Assessment and Plan: * Continue home levothyroxine 175mcg PO Daily (8) Depression with anxiety: Code(s): F41.8 - Other specified anxiety disorders Status: Acute Assessment and Plan: * Continue home effexor 75mg PO BID, Lorazepam 1mg PO BID PRN, and Trazodone 100mg PO HS (9) Diabetic neuropathy associated with type 2 diabetes mellitus: Code(s): E11.40 - Type 2 diabetes mellitus with diabetic neuropathy, unspecified Status: Acute Assessment and Plan: * Patient complains of chronic numbness and tingling * Glucose is 150-200s * Cons
--- NOTE | 2021-05-21 14:24 | PM.IMPN ---
Progress Note: A&P Assessment and Plan (1) CHF (congestive heart failure): Qualifiers: Heart failure chronicity: acute on chronic Heart failure type: unspecified Qualified Code(s): I50.9 - Heart failure, unspecified Code(s): I50.9 - Heart failure, unspecified Status: Acute Assessment and Plan: BNP 52372 Edema is better Continue home acetazolamide 125mg PO daily bumetanide 2mg PO BID restarted Renal failure Better today with creatinine of 2.20 Strict I&Os Trend labs Labs in the am (2) Severe anemia: Code(s): D64.9 - Anemia, unspecified Status: Acute Assessment and Plan: H/H 8.4/27.8 1 Unit transfused 05/18/21 Trend H/H Labs in the am Transfuse as needed (3) CKD (chronic kidney disease): Qualifiers: Chronic kidney disease stage: stage 4 (severe) Qualified Code(s): N18.4 - Chronic kidney disease, stage 4 (severe) Code(s): N18.9 - Chronic kidney disease, unspecified Status: Acute Assessment and Plan: GFR 21 CKD stage 4 BUN/Creatinine 86/2.20 Trend labs Careful use of diuretics Labs in the am Dr. Timmons consulted thank you for your help (4) Diabetes mellitus: Qualifiers: Chronic kidney disease stage: stage 4 (severe) Diabetes mellitus complication detail: with chronic kidney disease Diabetes mellitus complication status: with kidney complications Diabetes mellitus termite exterminator insulin use: with senior care use Diabetes mellitus type: type 2 Qualified Code(s): E11.22 - Type 2 diabetes mellitus with diabetic chronic kidney disease; N18.4 - Chronic kidney disease, stage 4 (severe); Z79.4 - USP (current) use of insulin Code(s): E11.9 - Type 2 diabetes mellitus without complications Status: Acute Assessment and Plan: Accu checks AC/HS Continue home insulin 20units lispro BID Sliding scale Carb constant diet Adjust medications as needed (5) Hyperlipidemia: Qualifiers: Hyperlipidemia type: mixed hyperlipidemia Qualified Code(s): E78.2 - Mixed hyperlipidemia Code(s): E78.5 - Hyperlipidemia, unspecified Status: Acute Assessment and Plan: Continue home Pravastatin 20mg PO Daily Will consider checking a lipid panel (6) Essential hypertension: Code(s): I10 - Essential (primary) hypertension Status: Acute Assessment and Plan: BP 134/91 Continue irbesartan 75mg PO Daily, Metolazone 5mg PO MO/ Trend BP Adjust medications as needed (7) Hypothyroidism: Qualifiers: Hypothyroidism type: unspecified Qualified Code(s): E03.9 - Hypothyroidism, unspecified Code(s): E03.9 - Hypothyroidism, unspecified Status: Acute Assessment and Plan: Continue home levothyroxine 175mcg PO Daily (8) Depression with anxiety: Code(s): F41.8 - Other specified anxiety disorders Status: Acute Assessment and Plan: Continue home effexor 75mg PO BID, Lorazepam 1mg PO BID PRN, and Trazodone 100mg PO HS (9) Diabetic neuropathy associated with type 2 diabetes mellitus: Code(s): E11.40 - Type 2 diabetes mellitus with diabetic neuropathy, unspecified Status: Acute Assessment and Plan: Patient complains of chronic numbness and tingling Glucose is 150-200s Consider starting on gabapentin for neuropathy (10) Elevated LFTs: Code(s): R79.89 - Other specified abnormal findings of blood chemistry Status: Acute Assessment and Plan: AST 152 alt 159 Abdomen ultrasound hepatitis panel negative Subjective Date/time seen: 05/21/21 10:15 Interval history: 86-year-old female with past medical history of systolic and diastolic congestive heart failure, chronic atrial fibrillation on chronic anticoagulation, chronic anemia, chronic kidney disease, and insulin-dependent diabetes ariane
[2021-05-21 16:48] LABS: Glucose Point of Care 232 mg/dl (65-105)
[2021-05-21] MEDS: traZODone HCL 50 MG TABLET 100 MG PO (20:23)
[2021-05-21 22:00] VITALS: BP 108/89; PULSE 77; RESP 18; TEMP 36.1; O2SAT 96
[2021-05-21 23:03] LABS: Glucose Point of Care 235 mg/dl (65-105)
--- NOTE | 2021-05-22 05:25 | PM.PNNEP ---
Progress Note: A&P Additional Plan Chronic kidney disease: The patient has chronic kidney disease from diabetes hypertension and vascular disease. She follows with Dr. Timmons in the office. Her creatinine varies from draw to draw quite a bit generally ranging from about 1.5-2.0. Her creatinine was only 1.5 when she was admitted. It might have been lower than usual because of dilution. So when given diuretics and with a good urinary response thereto, her creatinine probably when up just because of hemoconcentration. Urine electrolytes are pre renal. Scant amount of urine protein. Renal sonogram is okay. her creatinine has fallen to 2.2. I think this is probably her new baseline. she has a creatinine due today. Anemia: The patient received blood transfusions. On Venofer and Epo. cbc pending for today Hypertension:. It is running between 120 and 145. She is currently on Irbesartan, and metolazone. Congestive heart failure: The patient has congestive heart failure. Apparently this is combined systolic and diastolic congestive heart failure. Volume status looks better. cxr still shows some fluid. i/o not accurate due to incontinence. restated yesterday on Bumex 2 mg a day and metolazone 5 mg a day. Diabetes: The patient is on Accu-Cheks and sliding-scale insulin History of DVT: The patient is on Eliquis. Venous Dopplers are negative this admission Subjective Date/time seen: 05/22/21 05:25 Interval history: Fawn is feeling better. lying flat in bed without any sob. No swelling. Exam Narrative: Exam Narrative: WDWN in NAD skin no rash or sq nodules head ncat lungs clear Bilaterally cor reg no rub or gallop abd BS+ nontender and soft ext no edema or cyanosis. Objective Data Vital Signs Vital Signs: Vital Signs - 24 hr 05/21/21 06:00 05/21/21 09:00 05/21/21 09:43 Temperature 36.4 C Pulse Rate 83 110 H Respiratory Rate 21 H Blood Pressure 111/49 L 114/65 Pulse Oximetry 100 97 05/21/21 14:00 05/21/21 22:00 Temperature 36.4 C L 36.1 C L Pulse Rate 67 77 Respiratory Rate 16 18 Blood Pressure 134/91 H 108/89 Pulse Oximetry 100 96 Intake/Output Intake/Output: Intake & Output 05/19/21 05/20/21 05/21/21 05/22/21 23:59 23:59 23:59 23:59 Intake Total 810 1690 1230 Output Total 300 700 600 Balance 510 990 630 Meds/Results Medications: Active Medications Generic Name Dose Route Start Last Admin Trade Name Freq PRN Reason Stop Dose Admin Acetaminophen 1,000 mg 05/18/21 06:05 05/21/21 03:24 Acetaminophen 500 Mg Tablet PO 1,000 mg TID PRN Administration Pain Rated 1-3 Acetazolamide 125 mg 05/18/21 09:00 05/21/21 09:44 Acetazolamide Tab 125 Mg Tablet PO 125 mg DAILY ANY Administration Aspirin 81 mg 05/18/21 08:00 05/21/21 09:44 Aspirin 81 Mg Chewable Tablet PO 81 mg DAILY@0800 ANY Administration Bumetanide 2 mg 05/21/21 09:00 05/21/21 09:44 Bumetanide 1 Mg Tablet PO 2 mg DAILY ANY Administration Epoetin Sid-epbx 10,000 units 05/22/21 09:00 Epoetin Sid-Epbx 10,000 Units/Ml Vial SUB-Q MOWEFR ANY Gabapentin 100 mg 05/20/21 13:40 05/21/21 16:47 Gabapentin 100 Mg Capsule PO 100 mg TID ANY Administration Iron Sucrose 200 mg/ Sodium 60 mls @ 120 mls/hr 05/21/21 09:00 05/21/21 11:20 Chloride IVPB 05/25/21 09:01 Infused [facility] Infusion Insulin Lispro Protam/Lispro Human 20 units 05/18/21 08:00 05/20/21 10:06 Insulin Npl/Insulin Lispro 75/25 100 Units/Ml Vial (*Bkc) SUB-Q Not Given BIDWM ANY Irbesartan 75 mg 05/18/21 09:00 05/21/21 09:44 Irbesartan 75 Mg Tablet PO 75 mg DAILY ANY Administration Levothyroxine Sodium 100 mcg 05/18/21 06:30 05/21/21 05:43 Levothyroxine Sodium 100 Mcg Tablet PO 100 mcg DAILY@0630 ANY Administration Levothyroxine Sodium 75 mcg 05/18/21 06:30 05/21/21 05:44 Levothyroxine Sodium 75 Mcg Tablet P
[2021-05-22] MEDS: LEVOTHYROXINE SODIUM 100 MCG TABLET PO (05:33)
[2021-05-22] MEDS: LEVOTHYROXINE SODIUM 75 MCG TABLET PO (05:33)
[2021-05-22 06:00] VITALS: BP 102/53; PULSE 86; RESP 20; TEMP 36.4; O2SAT 98
[2021-05-22 06:53] LABS: Hematocrit 30.9 % (37.0-47.0); Hemoglobin 8.6 g/dL (12.0-15.0); Mean Corpuscular HGB Conc 27.8 g/dl (32-36); Mean Corpuscular Volume 107.7 fl (80-100); Mean Platelet Volume 10.7 fl (7.4-10.4); Platelet Count Result 254 k/mm3 (150-375); Red Blood Count 2.87 M/mm3 (4.2-5.4); Red Cell Distribution Width 15.9 % (11.5-14.5); White Blood Count 9.1 K/mm3 (4.5-10.0)
[2021-05-22 07:09] LABS: Alanine Aminotransferase 133 U/L (4-35); Albumin Level 3.3 g/dL (3.5-5.1); Alkaline Phosphatase 130 U/L (38-126); Anion Gap 13 mmol/L (8-16); Aspartate Amino Transferase 85 U/L (14-36); Bilirubin,Total 0.4 mg/dL (0.2-1.3); Blood Urea Nitrogen 87 mg/dL (7-17); Calcium 7.5 mg/dL (8.4-10.2); Carbon Dioxide 20 mmol/L (22-30); Chloride 101 mmol/L (98-107); Estimated CRCL calculation 19 ml/min; Estimated Glomerular Filt Rate 20; Glucose 183 mg/dL (65-105); Phosphorus 4.3 mg/dL (2.5-4.5); Potassium 3.9 mmol/L (3.4-5.0); Sodium 134 mmol/L (137-145)
[2021-05-22 09:07] LABS: Glucose Point of Care 186 mg/dl (65-105)
[2021-05-22] MEDS: GABAPENTIN 100 MG CAPSULE PO ×2 (09:07→13:37)
[2021-05-22] MEDS: IRBESARTAN 75 MG TABLET PO (09:07)
[2021-05-22] MEDS: ASPIRIN 81 MG CHEWABLE TABLET PO (09:07)
[2021-05-22] MEDS: BUMETANIDE 1 MG TABLET 2 MG PO (09:07)
[2021-05-22] MEDS: IRON SUCROSE COMPLEX 200 MG in SODIUM CHLORIDE 0.9% IV 50 ML 120 MG IVPB (09:07)
[2021-05-22] MEDS: PRAVASTATIN SODIUM 20 MG TABLET PO (09:08)
[2021-05-22] MEDS: VENLAFAXINE HCL XR 75 MG CAP.ER.24H PO (09:08)
[2021-05-22] MEDS: metOLazone 5 MG TABLET BY MOUTH (09:08)
[2021-05-22] MEDS: SILVERGEL (ELTA) 45 ML 1 APPLIC TOPICAL (09:09)
[2021-05-22] MEDS: TOLNAFTATE 1% POWDER 45 GM BTL 1 APPLIC TOPICAL (09:09)
[2021-05-22] MEDS: EPOETIN ALFA-EPBX 10,000 UNITS/ML VIAL 10000 UNITS SUB-Q (09:25)
--- NOTE | 2021-05-22 12:04 | P.DS_ITS ---
DS: Admitting Diagnosis Admitting Diagnosis Admitting Diagnosis: CHF exacerbation DS: Discharge Diagnosis Discharge Diagnosis (1) CHF (congestive heart failure): Qualifiers: Heart failure chronicity: acute on chronic Heart failure type: unspecified Qualified Code(s): I50.9 - Heart failure, unspecified Code(s): I50.9 - Heart failure, unspecified Status: Acute Assessment and Plan: * BNP 36802 * Edema is better * Continue home acetazolamide 125mg PO daily * bumetanide 2mg PO BID restarted * Renal failure Better today with creatinine of 2.20 * Strict I&Os * Trend labs * Labs in the am (2) Severe anemia: Code(s): D64.9 - Anemia, unspecified Status: Acute Assessment and Plan: * H/H 8.4/27.8 * 1 Unit transfused 05/18/21 * Trend H/H * Labs in the am * Transfuse as needed (3) CKD (chronic kidney disease): Qualifiers: Chronic kidney disease stage: stage 4 (severe) Qualified Code(s): N18.4 - Chronic kidney disease, stage 4 (severe) Code(s): N18.9 - Chronic kidney disease, unspecified Status: Acute Assessment and Plan: * GFR 21 CKD stage 4 * BUN/Creatinine 86/2.20 * Trend labs * Careful use of diuretics * Labs in the am * Dr. Timmons consulted thank you for your help (4) Diabetes mellitus: Qualifiers: Chronic kidney disease stage: stage 4 (severe) Diabetes mellitus complication detail: with chronic kidney disease Diabetes mellitus complication status: with kidney complications Diabetes mellitus lead inspector insulin use: with senior living use Diabetes mellitus type: type 2 Qualified Code(s): E11.22 - Type 2 diabetes mellitus with diabetic chronic kidney disease; N18.4 - Chronic kidney disease, stage 4 (severe); Z79.4 - industrial aerial installer (current) use of insulin Code(s): E11.9 - Type 2 diabetes mellitus without complications Status: Acute Assessment and Plan: * Accu checks AC/HS * Continue home insulin 20units lispro BID * Sliding scale * Carb constant diet * Adjust medications as needed (5) Hyperlipidemia: Qualifiers: Hyperlipidemia type: mixed hyperlipidemia Qualified Code(s): E78.2 - Mixed hyperlipidemia Code(s): E78.5 - Hyperlipidemia, unspecified Status: Acute Assessment and Plan: * Continue home Pravastatin 20mg PO Daily * Will consider checking a lipid panel (6) Essential hypertension: Code(s): I10 - Essential (primary) hypertension Status: Acute Assessment and Plan: * BP 134/91 * Continue irbesartan 75mg PO Daily, Metolazone 5mg PO MO/ * Trend BP * Adjust medications as needed (7) Hypothyroidism: Qualifiers: Hypothyroidism type: unspecified Qualified Code(s): E03.9 - Hypothyroidism, unspecified Code(s): E03.9 - Hypothyroidism, unspecified Status: Acute Assessment and Plan: * Continue home levothyroxine 175mcg PO Daily (8) Depression with anxiety: Code(s): F41.8 - Other specified anxiety disorders Status: Acute Assessment and Plan: * Continue home effexor 75mg PO BID, Lorazepam 1mg PO BID PRN, and Trazodone 100mg PO HS (9) Diabetic neuropathy associated with type 2 diabetes mellitus: Code(s): E11.40 - Type 2 diabetes mellitus with diabetic neuropathy, unspecified Status: Acute Assessment
--- NOTE | 2021-05-22 12:04 | PM.DS ---
DS: Admitting Diagnosis Admitting Diagnosis Admitting Diagnosis: CHF exacerbation DS: Discharge Diagnosis Discharge Diagnosis (1) CHF (congestive heart failure): Qualifiers: Heart failure chronicity: acute on chronic Heart failure type: unspecified Qualified Code(s): I50.9 - Heart failure, unspecified Code(s): I50.9 - Heart failure, unspecified Status: Acute Assessment and Plan: BNP 41325 Edema is better Continue home acetazolamide 125mg PO daily bumetanide 2mg PO BID restarted Renal failure Better today with creatinine of 2.20 Strict I&Os Trend labs Labs in the am (2) Severe anemia: Code(s): D64.9 - Anemia, unspecified Status: Acute Assessment and Plan: H/H 8.4/27.8 1 Unit transfused 05/18/21 Trend H/H Labs in the am Transfuse as needed (3) CKD (chronic kidney disease): Qualifiers: Chronic kidney disease stage: stage 4 (severe) Qualified Code(s): N18.4 - Chronic kidney disease, stage 4 (severe) Code(s): N18.9 - Chronic kidney disease, unspecified Status: Acute Assessment and Plan: GFR 21 CKD stage 4 BUN/Creatinine 86/2.20 Trend labs Careful use of diuretics Labs in the am Dr. Timmons consulted thank you for your help (4) Diabetes mellitus: Qualifiers: Chronic kidney disease stage: stage 4 (severe) Diabetes mellitus complication detail: with chronic kidney disease Diabetes mellitus complication status: with kidney complications Diabetes mellitus watermelon inspector insulin use: with watermelon inspector use Diabetes mellitus type: type 2 Qualified Code(s): E11.22 - Type 2 diabetes mellitus with diabetic chronic kidney disease; N18.4 - Chronic kidney disease, stage 4 (severe); Z79.4 - supervisor intermediates (current) use of insulin Code(s): E11.9 - Type 2 diabetes mellitus without complications Status: Acute Assessment and Plan: Accu checks AC/HS Continue home insulin 20units lispro BID Sliding scale Carb constant diet Adjust medications as needed (5) Hyperlipidemia: Qualifiers: Hyperlipidemia type: mixed hyperlipidemia Qualified Code(s): E78.2 - Mixed hyperlipidemia Code(s): E78.5 - Hyperlipidemia, unspecified Status: Acute Assessment and Plan: Continue home Pravastatin 20mg PO Daily Will consider checking a lipid panel (6) Essential hypertension: Code(s): I10 - Essential (primary) hypertension Status: Acute Assessment and Plan: BP 134/91 Continue irbesartan 75mg PO Daily, Metolazone 5mg PO MO/ Trend BP Adjust medications as needed (7) Hypothyroidism: Qualifiers: Hypothyroidism type: unspecified Qualified Code(s): E03.9 - Hypothyroidism, unspecified Code(s): E03.9 - Hypothyroidism, unspecified Status: Acute Assessment and Plan: Continue home levothyroxine 175mcg PO Daily (8) Depression with anxiety: Code(s): F41.8 - Other specified anxiety disorders Status: Acute Assessment and Plan: Continue home effexor 75mg PO BID, Lorazepam 1mg PO BID PRN, and Trazodone 100mg PO HS (9) Diabetic neuropathy associated with type 2 diabetes mellitus: Code(s): E11.40 - Type 2 diabetes mellitus with diabetic neuropathy, unspecified Status: Acute Assessment and Plan: Patient complains of chronic numbness and tingling Glucose is 150-200s Consider starting on gabapentin for neuropathy (10) Elevated LFTs: Code(s): R79.89 - Other specified abnormal findings of blood chemistry Status: Acute Assessment and Plan: AST 152 alt 159 Abdomen ultrasound hepatitis panel negative DS: Summary Hospital Course Hospital Course: 86-year-old female with past medical history of systolic and diastolic congestive heart failure, chronic atrial fibrillation on chronic anticoagulation, ch
[2021-05-22 12:38] LABS: Glucose Point of Care 245 mg/dl (65-105)
== END 2021-05-22 15:40 | DRG 291 ==
LOC: ANHED 15:26 → ANH2MED 19:31
PROVIDERS: Internal Medicine; Internal Medicine Nephrology; Nurse Practitioner; Admitting Provider Internal Medicine; Emergency Provider Emergency Medicine; PCP Family Medicine; Visit Provider Internal Medicine
DX: I13.0 Hypertensive heart and chronic kidney disease with heart failure and stage 1 through stage 4 chronic kidney disease, or unspecified chronic kidney disease (principal); I50.43 Acute on chronic combined systolic (congestive) and diastolic (congestive) heart failure; N18.4 Chronic kidney disease, stage 4 (severe); I48.20 Chronic atrial fibrillation, unspecified; E11.22 Type 2 diabetes mellitus with diabetic chronic kidney disease; E11.40 Type 2 diabetes mellitus with diabetic neuropathy, unspecified; E11.319 Type 2 diabetes mellitus with unspecified diabetic retinopathy without macular edema; D64.9 Anemia, unspecified; E89.0 Postprocedural hypothyroidism; I25.10 Atherosclerotic heart disease of native coronary artery without angina pectoris; I44.7 Left bundle-branch block, unspecified; E78.2 Mixed hyperlipidemia; F41.8 Other specified anxiety disorders; Z66 Do not resuscitate; Z79.01 Long term (current) use of anticoagulants; Z79.4 Long term (current) use of insulin; Z79.82 Long term (current) use of aspirin; Z85.850 Personal history of malignant neoplasm of thyroid; Z95.1 Presence of aortocoronary bypass graft; Z98.42 Cataract extraction status, left eye; Z98.41 Cataract extraction status, right eye
CPT/HCPCS: 36415; 36430; 71045; 71046; 76705; 76775; 80048; 80053; 80069; 80074; 82570; 82728; 82948; 83540; 83550; 83735; 83880; 84100; 84156; 84300; 84484; 85014; 85018; 85025; 85027; 85380; 85999; 86850; 86900; 86901; 86920; 93005; 93971; 96361; 96374; 96375; 96376; 97110; 97161; 97166; 97530; 97535; 99285; A9270; G0378; J1756; J1815; J1940; J2405; J7050; P9016; Q5106

== ENCOUNTER 2021-05-24 15:13 | Inpatient (IN) | payer MEDICARE, SELFPAY ==
[2021-05-24] VITALS (24 sets, daily range): BP systolic 67–159; BP diastolic 51–110; PULSE 70–89; RESP 12–27; TEMP 36.4–36.9; O2SAT 94–99; BMI 35.7
--- NOTE | ~2021-05-24 | CT_ITS ---
EXAMINATION: CT abdomen pelvis wo con DATE: 06/03/2021 00:04 INDICATION: Nausea and vomiting TECHNIQUE: Computed tomography (CT) of the abdomen and pelvis was performed without intravenous contr ast. The dose-length product (DLP) was 1146.35 mGy-cm. Automated exposure control and iterative recon struction technique were employed. COMPARISON: 10/08/2017; MRI, 10/10/2017 FINDINGS: There are small pleural effusions, right greater than left. Cardiomegaly is noted. There ar e changes of mitral valve surgery. The gallbladder is surgically absent. Motion artifact slightly ponce its evaluation of the upper abdomen. The liver, spleen, pancreas, and adrenal glands are normal. Cyst s of the kidneys measure up to 4.4 cm on the right. Some are mildly hyperattenuating but unchanged si nce the comparison examination. There is calcified atherosclerosis of the aorta and many of the other arteries. No pathologically enlarged abdominal or pelvic lymph nodes are identified. There is no jae e intraperitoneal gas or evidence of bowel obstruction. Diffuse anasarca is noted. There is a fat-con taining umbilical hernia. Severe lumbar spondylosis is present. IMPRESSION: 1. No CT correlate for the patient's symptoms. Reviewed, dictated and finalized at location A.
--- NOTE | ~2021-05-24 | XR_ITS ---
EXAMINATION: XR ankle RT 2V DATE: 05/25/2021 15:09 INDICATION: Right ankle deformity. TECHNIQUE: 2 views of right ankle were obtained. COMPARISON: Right ankle radiographs 03/28/2021, 09/02/2019 FINDINGS: There is a subacute nondisplaced spiral fracture of tibial diaphysis with a small area of c allus formation. There is an old healed fracture of medial malleolus with malunion and chronically fr actured lag screw. There is an old healed fracture of distal fibula with malunion and fixation with 2 screws. There is 40 degrees varus angulation of talus with respect to the long axis of tibia. 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 There is mild osteoarthritis of some of the midfoot joints. There are enthesophytes at the posterior and plantar aspects of calcaneal tuberos ity. IMPRESSION: 1. Healing subacute nondisplaced spiral fracture of tibial diaphysis. The callus formation is new fro 03/28/21. 2. Old healed fractures of distal tibia and fibula with malunion resulting in 40 degrees varus angula tion at the ankle and moderate posttraumatic tibiotalar joint osteoarthritis. Reviewed, dictated and finalized at location A. IMPRESSION: 1. Healing subacute nondisplaced spiral fracture of tibial diaphysis. The callu s formation is new from 03/28/21. 2. Old healed fractures of distal tibia and fibula with malunion resulting in 4 0 degrees varus angulation at the ankle and moderate posttraumatic tibiotalar j oint osteoarthritis.
--- NOTE | ~2021-05-24 | XR_ITS ---
EXAMINATION: XR chest 1V portable DATE: 05/31/2021 05:57 INDICATION: Shortness of breath TECHNIQUE: 1. COMPARISON: Chest radiograph dated 05/29/2021 FINDINGS: Cardiomegaly with pulmonary vascular congestion. Perihilar mild increased interstitial pattern with p eribronchial cuffing consistent with mild pulmonary edema. Opacities in the bilateral lower lung zone s which could represent atelectasis or less likely pneumonia. Median sternotomy wires and mediastinal surgical clips are seen, likely from prior coronary artery bypass grafting. IMPRESSION: 1. Congestive heart failure with cardiomegaly and mild perihilar edema. 2. Streaky opacities in the bilateral lower lung zones and favor atelectasis over pneumonia. Reviewed, dictated and finalized at location A. IMPRESSION: 1. Congestive heart failure with cardiomegaly and mild perihilar edema. 2. Streaky opacities in the bilateral lower lung zones and favor atelectasis ov er pneumonia.
--- NOTE | ~2021-05-24 | XR_ITS ---
EXAMINATION: XR chest 1V portable DATE: 05/29/2021 05:36 INDICATION: Congestive heart failure TECHNIQUE: frontal view of the chest was obtained. COMPARISON: Chest radiograph dated 05/24/2021 FINDINGS: Cardiomegaly with pulmonary vascular congestion. Diffuse increased indistinct interstitial pattern co nsistent with mild pulmonary edema. No pleural effusion or pneumothorax. Median sternotomy wires and mediastinal surgical clips are seen, likely from prior coronary artery bypass grafting. IMPRESSION: 1. Congestive heart failure with cardiomegaly and mild pulmonary edema. Reviewed, dictated and finalized at location A.
--- NOTE | ~2021-05-24 | XR_ITS ---
EXAMINATION: XR chest 1V portable DATE: 05/24/2021 17:32 INDICATION: Congestive heart failure. TECHNIQUE: A single frontal view of the chest was obtained. COMPARISON: Chest single view 05/21/2021 FINDINGS: There is a diffuse interstitial pattern, consistent with mild pulmonary edema. No pleural e ffusion or pneumothorax. Cardiomegaly is noted. Median sternotomy wires and mediastinal surgical clip s are seen, likely from prior coronary artery bypass grafting. IMPRESSION: 1. Mild pulmonary edema. 2. Cardiomegaly. Reviewed, dictated and finalized at location A.
--- NOTE | ~2021-05-24 | XR_ITS ---
EXAMINATION: XR chest 1V portable DATE: 06/02/2021 05:28 INDICATION: Shortness of breath TECHNIQUE: frontal view of the chest was obtained. COMPARISON: Chest radiograph dated 05/31/2021 FINDINGS: Pulmonary vascular congestion without moni pulmonary edema. Linear discoid atelectasis/scarring in t he left midlung zone. Cardiomegaly. Dense mitral annular calcification. Median sternotomy wires and m ediastinal surgical clips are seen, likely from prior coronary artery bypass grafting. Cholecystectom y clips in right upper quadrant. IMPRESSION: 1. 30 megaly with pulmonary vascular congestion but without moni pulmonary edema. Reviewed, dictated and finalized at location A. IMPRESSION: 1. 30 megaly with pulmonary vascular congestion but without moni pulmonary mary
--- NOTE | 2021-05-24 15:39 | ED.GENADULT ---
HPI - General Adult General Chief complaint: Recheck/Abnormal Lab/Rx Stated complaint: ABNORMAL LABS Time Seen by Provider: 05/24/21 15:23 Source: RN notes reviewed History of Present Illness HPI narrative: Patient presents to emergency department from assisted for abnormal lab tests patient had lab results performed at assisted today 623 showing a creatinine of 2.3 and a BUN of 95 patient also was noted to have a hemoglobin of 7.9 secondary to this the patient was sent to the emergency department for further evaluation patient currently resting in bed with no complaints denies any fevers or chills chest pain shortness of breath or any other symptoms Related Data Home Medications Medication Instructions Recorded Confirmed lorazepam [Ativan] 1 mg PO BID PRN 07/15/20 05/17/21 acetazolamide 125 mg PO DAILY 03/28/21 05/17/21 albuterol sulfate [ProAir HFA] 1 inhalation INHALATION Q4H PRN 03/28/21 05/17/21 bumetanide 2 mg PO BID 03/28/21 05/17/21 insulin lispro protamin-lispro 20 unit SUBCUT BID 03/28/21 05/17/21 [Humalog Mix 75-25 KwikPen] metolazone See Rx Instructions .ROUTE .COMPLEX 03/28/21 05/17/21 pravastatin 20 mg PO DAILY 03/28/21 05/17/21 trazodone 100 mg PO HS 03/28/21 05/17/21 venlafaxine 75 mg PO BID 03/28/21 05/17/21 aspirin 81 mg PO DAILY 03/29/21 05/17/21 Eliquis 5 mg PO BID 05/17/21 05/17/21 Allergies Allergy/AdvReac Type Severity Reaction Status Date / Time Sulfa (Sulfonamide Allergy Unknown Verified 05/17/21 21:20 Antibiotics) Review of Systems Review of Systems: Narrative: Gen.: Denies fevers or chills ENT: Denies congestion Respiratory: Denies shortness of breath or cough CV: Denies chest pain or palpitations GI: Denies abdominal pain nausea, emesis or diarrhea Musculoskeletal: Denies back pain or muscle pain Neuro: Denies numbness, tingling, weakness or focal weakness Skin: Denies rash Except as documented, all other systems reviewed and negative PMFSH Past Medical History Medical History Breast lump Chronic combined systolic and diastolic CHF (congestive heart failure) Closed fracture dislocation of ankle with malunion Coronary artery disease Depression with anxiety Diabetes mellitus Diabetic neuropathy Diabetic neuropathy associated with type 2 diabetes mellitus Diabetic retinopathy Essential hypertension Hyperlipidemia Hypothyroidism associated with surgical procedure Left bundle branch block Legally blind Thyroid cancer Surgical History Surgical History History of bilateral carpal tunnel release History of bilateral cataract extraction History of carpal tunnel release History of cholecystectomy History of knee replacement (~2000) History of knee replacement (~2007) History of partial hysterectomy History of thyroidectomy Due to papillary thyroid cancer History of tonsillectomy Hx of CABG (~2008) Four-vessel bypass performed at [facility] Status post open reduction with internal fixation of fracture Ankle malunion with fracture and osteoporosis with hardware removal 2019 with subsequent nondisplaced tibial distal metaphyseal fracture due to increased stress from angular deformity Status post open reduction with internal fixation of fracture Right femur fracture Family History Family History Father Family history of cataracts Family history of diabetes mellitus in first degree relative Family history of coronary artery disease, Onset Age: 80 Mother Family history of cataracts Family history of diabetes mellitus in first degree relative Family history of coronary artery disease, Onset Age: 70 Sibling Family history of cataracts Family history of diabetes mellitus in first degree relative Social History Social History (Reviewed 05/24/21 @ 15:40 by Jose Yan DO
[2021-05-24 15:55] LABS: Basophils Percent Auto 0.1 % (0.2-1.2); Eosinophils Absolute Auto 0.1 K/mm3 (0-0.3); Eosinophils Percent Auto 1.7 % (0-4.4); Hematocrit 26.8 % (37.0-47.0); Hemoglobin 7.9 g/dL (12.0-15.0); Immature Granulocyte Absolute 0.04 K/mm3 (0.00-0.031); Immature Granulocyte Percent A 0.5 % (0-0.5); Lymphocytes Absolute Auto 0.71 K/mm3 (0.9-3.2); Lymphocytes Percent Auto 9.6 % (18.3-44.2); Mean Corpuscular HGB Conc 29.5 g/dl (32-36); Mean Corpuscular Hemoglobin 29.3 pg (26-34); Mean Corpuscular Volume 99.3 fl (80-100); Monocytes Percent Auto 12.9 % (2.6-8.5); Neutrophils Absolute Auto 5.6 K/mm3 (1.3-6.7); Neutrophils Percent Auto 75.2 % (45.5-73.1); Platelet Count Result 284 k/mm3 (150-375); Red Cell Distribution Width 16.2 % (11.5-14.5); White Blood Count 7.4 K/mm3 (4.5-10.0)
[2021-05-24 16:05] LABS: Alanine Aminotransferase 69 U/L (4-35); Albumin Level 3.2 g/dL (3.5-5.1); Alkaline Phosphatase 116 U/L (38-126); Anion Gap 9 mmol/L (8-16); Aspartate Amino Transferase 32 U/L (14-36); Bilirubin,Total 0.3 mg/dL (0.2-1.3); Blood Urea Nitrogen 92 mg/dL (7-17); Calcium 7.8 mg/dL (8.4-10.2); Carbon Dioxide 25 mmol/L (22-30); Chloride 100 mmol/L (98-107); Estimated CRCL calculation 19 ml/min; Estimated Glomerular Filt Rate 18; Glucose 230 mg/dL (65-105); Potassium 3.7 mmol/L (3.4-5.0); Sodium 134 mmol/L (137-145)
[2021-05-24 16:15] LABS: Hypochromasia 1+ (NORMAL); Platelet Estimate Adequate (Adequate)
[2021-05-24 16:16] LABS: Ovalocytes 1+ (NORMAL)
--- NOTE | 2021-05-24 17:18 | PC.NURSE ---
pt noted to have run of vtach on monitor in which pt self terminated.
--- NOTE | 2021-05-24 17:19 | ECG_ITS ---
Measurements Intervals [place] Rate: 80 P: GA: 0 QRS: -69 QRSD: 165 T: 121 QT: 443 QTc: 511 Interpretive Statements ATRIAL FIBRILLATION LEFT AXIS DEVIATION LEFT BUNDLE BRANCH BLOCK LOW VOLTAGE- LIMB LEADS BASELINE ARTIFACT- I, II, III, AVR, AVF, V1, V3-V6 ABNORMAL ECG Electronically Signed On 05-24-2021 21:39:17 CDT by Syed Gillespie D.O.
[2021-05-24 17:49] LABS: Magnesium 2.2 mg/dL (1.6-2.3)
[2021-05-24 18:06] LABS: NT Pro B Type Natriuretic Pept 10300 pg/mL (5-100); Troponin I 0.052 ng/mL (0.000-0.034)
[2021-05-24 19:20] LABS: Glucose Point of Care 182 mg/dl (65-105)
--- NOTE | 2021-05-24 19:27 | PC.NURSE ---
Pt's daughter at bedside. pt sidelying on stretcher. this RN put BP cuff and pulse ox detector back on pt, vitals obtained. accucheck 182. daughter provided with update on plan of care as requested.
--- NOTE | 2021-05-24 21:27 | PM.IMHP ---
H&P: HPI History of Present Illness Date/Time: 05/24/21 21:27 Chief Complaint: Abnormal labs Narrative: This is an 86-year-old female with past medical history significant for atrial fibrillation anticoagulated, type 2 diabetes mellitus insulin dependent, diabetic peripheral neuropathy, congestive heart failure, hypothyroidism, depression. Who was just discharged to [place] and she has been brought back after her repeat lab work was abnormal upon review a has been found that the lab work is consistent for worsening creatinine, also on emergency room telemetry she was witnessed to have a run of V-tach. I have talked to the daughter about hospice and she is in agreement. Patient has not been able to provide any history due to confusion daughter states that she has been like this for several weeks now to probably months. Review of Systems Review of Systems: ROS unobtainable: Yes unobtainable due to medical condition PMFSH Past Medical History Medical History Breast lump Chronic combined systolic and diastolic CHF (congestive heart failure) Closed fracture dislocation of ankle with malunion Coronary artery disease Depression with anxiety Diabetes mellitus Diabetic neuropathy Diabetic neuropathy associated with type 2 diabetes mellitus Diabetic retinopathy Essential hypertension Hyperlipidemia Hypothyroidism associated with surgical procedure Left bundle branch block Legally blind Thyroid cancer Surgical History Surgical History History of bilateral carpal tunnel release History of bilateral cataract extraction History of carpal tunnel release History of cholecystectomy History of knee replacement (~2000) History of knee replacement (~2007) History of partial hysterectomy History of thyroidectomy Due to papillary thyroid cancer History of tonsillectomy Hx of CABG (~2008) Four-vessel bypass performed at [facility] Status post open reduction with internal fixation of fracture Ankle malunion with fracture and osteoporosis with hardware removal 2019 with subsequent nondisplaced tibial distal metaphyseal fracture due to increased stress from angular deformity Status post open reduction with internal fixation of fracture Right femur fracture Family History Family History Father Family history of cataracts Family history of diabetes mellitus in first degree relative Family history of coronary artery disease, Onset Age: 80 Mother Family history of cataracts Family history of diabetes mellitus in first degree relative Family history of coronary artery disease, Onset Age: 70 Sibling Family history of cataracts Family history of diabetes mellitus in first degree relative Social History Social History Social History: The patient usually lives in her own home in [place]. Following her recent hospitalization March 2021 she has been at [facility] for acute rehab. She has been since early 2016. She usually ambulates with a walker. She is a retired school furnace worker. Code status: DNR (state form on chart) Smoking status: Never smoker Second hand tobacco smoke exposure: No Alcohol intake: never Substance use: never Substance use type: does not use Gender identity (if verbalized by the patient): Female Spiritual care concerns: No Meds Home Medications and Allergies Home Medications Medication Instructions Recorded Confirmed Type irbesartan 75 mg tablet 75 mg PO DAILY #30 tablet 11/11/19 05/24/21 Rx nystatin 100,000 unit/gram topical 1 applic TOPICAL BID #15 gm 11/11/19 05/24/21 Rx powder lorazepam [Ativan] 1 mg PO BID PRN 07/15/20 05/24/21 History acetazolamide 125 mg PO DAILY 03/28/21 05/24/21 History albuterol sulfate
--- NOTE | 2021-05-24 21:40 | ADMGEN ---
This patient, Fawn Montgomery, was admitted to IMU Room 206-02. Patient/family oriented to hospital policies and general routines including ID bracelet, bed and alarms, visiting hours, pain management, procedures, bathroom and other care routines, personal items, smoking policy, room service/diet, and visiting hours. Information on how to activate the Rapid Response Team has been discussed. Patient/Family are encouraged to report perceived risks to care and to ask questions if they do not understand what they are told or what they should do.
[2021-05-24 23:19] LABS: INR 1.6; Partial Thromboplastin Time 35.8 SECONDS (22.3-36.8); Prothrombin Time 19.2 Seconds (11.1-14.7)
[2021-05-24 23:25] LABS: Troponin I 0.057 ng/mL (0.000-0.034)
[2021-05-25] VITALS (12 sets, daily range): BP systolic 126–159; BP diastolic 63–80; PULSE 62–86; RESP 12–20; TEMP 36.5–37.3; O2SAT 96–99
[2021-05-25 05:04] LABS: Basophils Percent Auto 0.3 % (0.2-1.2); Eosinophils Absolute Auto 0.2 K/mm3 (0-0.3); Eosinophils Percent Auto 2.4 % (0-4.4); Hematocrit 26.2 % (37.0-47.0); Hemoglobin 8.1 g/dL (12.0-15.0); Immature Granulocyte Absolute 0.03 K/mm3 (0.00-0.031); Immature Granulocyte Percent A 0.5 % (0-0.5); Lymphocytes Absolute Auto 0.79 K/mm3 (0.9-3.2); Lymphocytes Percent Auto 12.8 % (18.3-44.2); Mean Corpuscular HGB Conc 30.9 g/dl (32-36); Mean Corpuscular Hemoglobin 29.5 pg (26-34); Mean Corpuscular Volume 95.3 fl (80-100); Mean Platelet Volume 10.5 fl (7.4-10.4); Monocytes Absolute Auto 0.9 K/mm3 (0.1-0.6); Neutrophils Absolute Auto 4.2 K/mm3 (1.3-6.7); Platelet Count Result 268 k/mm3 (150-375); Red Blood Count 2.75 M/mm3 (4.2-5.4); Red Cell Distribution Width 16.6 % (11.5-14.5); White Blood Count 6.2 K/mm3 (4.5-10.0)
[2021-05-25 05:20] LABS: Alanine Aminotransferase 62 U/L (4-35); Albumin Level 3.1 g/dL (3.5-5.1); Alkaline Phosphatase 112 U/L (38-126); Anion Gap 8 mmol/L (8-16); Aspartate Amino Transferase 27 U/L (14-36); Bilirubin,Total 0.4 mg/dL (0.2-1.3); Blood Urea Nitrogen 88 mg/dL (7-17); Calcium 8.1 mg/dL (8.4-10.2); Carbon Dioxide 27 mmol/L (22-30); Chloride 102 mmol/L (98-107); Estimated CRCL calculation 20 ml/min; Estimated Glomerular Filt Rate 22; Glucose 207 mg/dL (65-105); Potassium 3.6 mmol/L (3.4-5.0); Sodium 137 mmol/L (137-145)
[2021-05-25] MEDS: LEVOTHYROXINE SODIUM 75 MCG TABLET PO (05:38)
[2021-05-25] MEDS: LEVOTHYROXINE SODIUM 100 MCG TABLET PO (05:38)
[2021-05-25] MEDS: PRAVASTATIN SODIUM 20 MG TABLET PO (08:20)
[2021-05-25] MEDS: ASPIRIN 81 MG ENTERIC TABLET PO (08:20)
[2021-05-25] MEDS: TOLNAFTATE 1% POWDER 45 GM BTL 1 APPLIC TOPICAL ×2 (08:20→20:29)
[2021-05-25] MEDS: APIXABAN 5 MG TABLET PO ×2 (08:21→17:16)
[2021-05-25] MEDS: FERROUS SULFATE 324 MG TABLET PO (08:21)
[2021-05-25 08:57] LABS: Glucose Point of Care 174 mg/dl (65-105)
--- NOTE | 2021-05-25 11:50 | PM.CNCAR ---
Assessment and Plan Assessment and plan (1) Ventricular tachycardia: Code(s): I47.2 - Ventricular tachycardia Status: Acute Assessment and Plan: Self terminating versus noted. May be ischemic but she is currently in the process of going on hospice. Will defer further workup at this point. Replace potassium with 40 mEq p.o. x1 (2) Elevated troponin: Code(s): R77.8 - Other specified abnormalities of plasma proteins Status: Acute Assessment and Plan: Not related to ACS (3) Chronic combined systolic and diastolic CHF (congestive heart failure): Code(s): I50.42 - Chronic combined systolic (congestive) and diastolic (congestive) heart failure Status: Acute Assessment and Plan: Acute on chronic combined systolic and diastolic heart failure. Will resume Bumex 1 mg daily (4) Coronary artery disease: Code(s): I25.10 - Atherosclerotic heart disease of [place] coronary artery without angina pectoris Status: Acute Assessment and Plan: Continue medical therapy with aspirin, statin. Will start low-dose metoprolol as above (5) Chronic renal insufficiency: Code(s): N18.9 - Chronic kidney disease, unspecified Status: Acute Assessment and Plan: Improved today History of Present Illness History of Present Illness Consult date/time: 05/25/21 11:50 Requesting physician: Jose Yan DO Consult reason: Other (Ventricular tachycardia) Reason For Visit: Nonsustained ventricular tachycardia, Narrative: Date of service 05/25/2021 History: Patient is an 86-year-old female who has a multitude of health problems who came into the hospital because of abnormal labs and worsening renal failure. She currently is somnolent but is able to answer some basic questions. Reportedly per nurse the patient it will be going on hospice later today. The patient states that she had some chest pain earlier today but is now no longer present. She does have shortness of breath. She has no syncope, presyncope. She has lower extremity swelling and is on diuretics. She was admitted because of some ventricular tachycardia noted on electronic device monitor and the ER. She does have a history of chronic atrial fibrillation with heart rate control. She is on anticoagulation also. Review of Systems Review of Systems: All systems reviewed & are unremarkable except as noted in HPI and below Constitutional: Constitutional: Reports weakness Eyes: Eyes: Denies blurry vision ENT: Reports Normal hearing present Cardiovascular: Cardiovascular: Reports chest pain, Reports pedal edema and Reports leg edema Respiratory: Respiratory: Reports dyspnea Gastrointestinal: Gastrointestinal: Denies abdominal pain Genitourinary: Genitourinary: Denies flank pain Musculoskeletal: Musculoskeletal: Denies back pain, Reports arthralgias and Denies neck pain Integumentary/Breasts: Skin/Breast: Denies dry skin and Reports unusual bruising Neurologic: Denies headache(s) and Denies numbness Psychiatric: Psychiatric: Denies anxiety and Denies confusion Endocrine: Endocrine: Denies fatigue and Denies flushing Hematologic/Lymphatic: Hematologic/Lymphatic: Reports easy bleeding and Reports easy bruising Allergic/Immunologic: Allergic/Immunologic: Denies GI upset with certain foods PMFSH Past Medical History Medical History Breast lump Chronic combined systolic and diastolic CHF (congestive heart failure) Closed fracture dislocation of ankle with malunion Coronary artery disease Depression with anxiety Diabetes mellitus Diabetic neuropathy Diabetic neuropathy associated with type 2 diabetes mellitus Diabetic retinopathy Essential hypertension Hyperlipidemia Hypothyroidism associated with surgical procedure Left bundle branch block Legally blind Thyroid cancer Surgical History Surgical History (Reviewed 05/19/21 @ 15:31 by Marshal Carballo
[2021-05-25] MEDS: SILVERGEL (ELTA) 45 ML 1 APPLIC TOPICAL (12:08)
[2021-05-25] MEDS: POTASSIUM CHLORIDE 20 MEQ TABLET 40 MEQ PO (12:10)
--- NOTE | 2021-05-25 15:46 | PC.NURSE ---
Obtained right ankle fracture, family at bedside states they know about broken screw in ankle and ankle has been malformed for about 3 years. states patient is full weight bearing with brace and walker
--- NOTE | 2021-05-25 15:49 | PM.CNNEP ---
Assessment and Plan Assessment and plan (1) Chronic kidney disease, stage IV (severe): Code(s): N18.4 - Chronic kidney disease, stage 4 (severe) Status: Chronic Assessment and Plan: previous baseline creatinine was ~ 1.5 - 1.8mg/dl however, from last hospitalization, it seems her creatinine is now ~ 2.0 - 2.3mg/dl due to HTN, diabetes, vascular disease, diuretics, and age-related change (2) Ventricular tachycardia: Code(s): I47.2 - Ventricular tachycardia Status: Acute Assessment and Plan: as noted by telemetry in ER Cardiology following (3) Altered mental status: Code(s): R41.82 - Altered mental status, unspecified Status: Acute Assessment and Plan: clinically better thought to be secondary to gabapentin follow mentation (4) Anemia: Code(s): D64.9 - Anemia, unspecified Status: Acute Assessment and Plan: due in part to underlying CKD continue Epogen while hospitalized follow trend of H/H (5) Chronic combined systolic and diastolic CHF (congestive heart failure): Code(s): I50.42 - Chronic combined systolic (congestive) and diastolic (congestive) heart failure Status: Acute Assessment and Plan: appears compensated despite elevated BNP diuretics on hold currently would likely stop IVFs later today and restart bumex tomorrow or day after (6) Weakness: Code(s): R53.1 - Weakness Status: Acute Assessment and Plan: due to deconditioning from last hospitalization and prevous ankle fracture PT/OT as tolerated Long and extensive discussion (> 20 minutes) with patient's daughter at bedside regarding the above issues and plan of care. Will continue to follow. History of Present Illness Reason for Consult Consult date: 05/25/21 Reason for consult: chronic renal failure Chief Complaint Chief complaint: Nonsustained ventricular tachycardia, History of Present Illness Narrative: The patient is a 86-year-old female with past medical history as outlined below who presented to [facility] Emergency room from her rehab facility due to abnormal labs. The patient was just recently discharged from [facility] not too long ago after being hospitalized for fluid overload/ CHF exacerbation. During that hospital stay, her diuretics were adjusted up in effort to maintain euvolemia and although her creatinine was somewhat higher than baseline by the time of discharge, it was felt that this was a new baseline as she acquire these diuretics to maintain her volume status. She also had issues with anemia required packed red blood cell transfusion and initiation of Epogen therapy. Apparently she had recent labs done at her rehab facility which demonstrated some mild worsening of her kidney function in association with some altered mental status. Due to this change /findings in conjunction with her complex medical history she was transferred to the emergency room for further evaluation and therapy. Workup and evaluation emergency room demonstrated the patient to be hemodynamically stable and repeat labs demonstrated her known chronic kidney disease although her kidney function was only mildly elevated in comparison to what it was on discharge along with her chronic anemia as mentioned. While she was in the emergency room, she apparently had a run of V-tach which is a new issue for her as well. Given these constellation of symptoms and laboratory findings, she was admitted the hospital for further investigation. Since her admission, her mental status seems to have improved and it is thought that the use of Gabapentin may have precipitated her altered mental status. Furthermore, her repeat labs show some improvement in her kidney function although her diuretics as well as her ARB were held on admission as well. Renal consultation was requested due to her chronic kidney disease. The patient is so
--- NOTE | 2021-05-25 16:49 | PM.IMPN ---
Progress Note: A&P Assessment and Plan (1) Ventricular tachycardia: Code(s): I47.2 - Ventricular tachycardia Status: Acute Assessment and Plan: Admit to telemetry Continue to monitor Core status is DNR Hospice has been discussed with daughter who is agreeable to it care coordination consult for hospice referral Narrative: This is an 86-year-old female with past medical history significant for atrial fibrillation anticoagulated, type 2 diabetes mellitus insulin dependent, diabetic peripheral neuropathy, congestive heart failure, hypothyroidism, depression. Who was just discharged to [place] and she has been brought back after her repeat lab work was abnormal upon review a has been found that the lab work is consistent for worsening creatinine, also on emergency room telemetry she was witnessed to have a run of V-tach. I have talked to the daughter about hospice and she is in agreement. Patient has not been able to provide any history due to confusion daughter states that she has been like this for several weeks now to probably months. 05/27 patient daughter present in the initially there was thought about admitting the patient under hospice however patient daughter had decided against hospice and would like to continue current management, patient has acute on chronic kidney disease will gently and will consult Nephrology for further recommendation patient also seen by cardiology and further recommendation to follow, unfortunately patient is not able to any review of symptom (2) Anemia: Code(s): D64.9 - Anemia, unspecified Status: Acute Assessment and Plan: Likely secondary to kidney failure On Procrit (3) Chronic renal insufficiency: Code(s): N18.9 - Chronic kidney disease, unspecified Status: Acute Assessment and Plan: Holding irbesartan and metolazone and bumetanide Repeat BMP in a.m. Gentle hydration (4) Weakness: Code(s): R53.1 - Weakness Status: Acute Assessment and Plan: Likely secondary to chronic illness and deconditioning (5) Diabetic neuropathy associated with type 2 diabetes mellitus: Code(s): E11.40 - Type 2 diabetes mellitus with diabetic neuropathy, unspecified Status: Acute Assessment and Plan: Holding gabapentin due to altered mental status (6) CHF (congestive heart failure): Qualifiers: Heart failure chronicity: acute on chronic Heart failure type: unspecified Qualified Code(s): I50.9 - Heart failure, unspecified Code(s): I50.9 - Heart failure, unspecified Status: Acute Assessment and Plan: BMP is elevated On physical exam no signs of distress (7) Closed fracture dislocation of ankle with malunion: Qualifiers: Laterality: right Qualified Code(s): S82.891P - Other fracture of right lower leg, subsequent encounter for closed fracture with malunion Code(s): S82.899P - Other fracture of unspecified lower leg, subsequent encounter for closed fracture with malunion Status: Acute Assessment and Plan: Palliative care (8) Chronic combined systolic and diastolic CHF (congestive heart failure): Code(s): I50.42 - Chronic combined systolic (congestive) and diastolic (congestive) heart failure Status: Acute Assessment and Plan: Elevated BNP Patient with worsening kidney failure as well (9) Altered mental status: Code(s): R41.82 - Altered mental status, unspecified Status: Acute Assessment and Plan: Holding Ativan, gabapentin, trazodone and venlafaxine. Supportive care Continue to monitor Subjective Date/time seen: 05/25/21 16:49 Chief Complaint: Abnormal labs Narrative: This is an 86-year-old female with past medical history significant for atrial fibrillation anticoagulated, type 2 diabetes mellitus insulin dependent, diabetic peripheral neuropathy, congestive heart failure, hypothyroidism, depression. Who was just disc
[2021-05-25 17:05] LABS: Glucose Point of Care 116 mg/dl (65-105)
[2021-05-25] MEDS: SODIUM CHLORIDE 0.9% IV 1,000 ML 75 ML IV CONT (17:18)
[2021-05-25] MEDS: METOPROLOL TARTRATE 12.5 MG TABLET PO (20:29)
[2021-05-26] VITALS (9 sets, daily range): BP systolic 123–140; BP diastolic 47–80; PULSE 65–87; RESP 12–18; TEMP 36–37.3; O2SAT 98–100
[2021-05-26] MEDS: LEVOTHYROXINE SODIUM 100 MCG TABLET PO (06:15)
[2021-05-26] MEDS: LEVOTHYROXINE SODIUM 75 MCG TABLET PO (06:15)
[2021-05-26] MEDS: TOLNAFTATE 1% POWDER 45 GM BTL 1 APPLIC TOPICAL ×2 (08:59→20:04)
[2021-05-26 09:00] LABS: Glucose Point of Care 90 mg/dl (65-105)
[2021-05-26] MEDS: BUMETANIDE 1 MG TABLET PO (09:00)
[2021-05-26] MEDS: SILVERGEL (ELTA) 45 ML 1 APPLIC TOPICAL (09:00)
[2021-05-26] MEDS: FERROUS SULFATE 324 MG TABLET PO (09:00)
[2021-05-26] MEDS: ASPIRIN 81 MG ENTERIC TABLET PO (09:00)
[2021-05-26] MEDS: METOPROLOL TARTRATE 12.5 MG TABLET PO ×2 (09:01→20:03)
[2021-05-26] MEDS: APIXABAN 5 MG TABLET PO ×2 (09:01→18:14)
[2021-05-26] MEDS: PRAVASTATIN SODIUM 20 MG TABLET PO (09:01)
[2021-05-26 11:13] LABS: Albumin Level 3.3 g/dL (3.5-5.1); Anion Gap 8 mmol/L (8-16); Blood Urea Nitrogen 74 mg/dL (7-17); Calcium 8.8 mg/dL (8.4-10.2); Carbon Dioxide 29 mmol/L (22-30); Chloride 103 mmol/L (98-107); Estimated CRCL calculation 25 ml/min; Estimated Glomerular Filt Rate 31; Glucose 117 mg/dL (65-105); Magnesium 2.3 mg/dL (1.6-2.3); Phosphorus 3.7 mg/dL (2.5-4.5); Potassium 3.6 mmol/L (3.4-5.0); Sodium 140 mmol/L (137-145)
[2021-05-26 11:18] LABS: Hematocrit 31.5 % (37.0-47.0); Hemoglobin 9.2 g/dL (12.0-15.0); Mean Corpuscular HGB Conc 29.2 g/dl (32-36); Mean Corpuscular Hemoglobin 29.4 pg (26-34); Mean Corpuscular Volume 100.6 fl (80-100); Mean Platelet Volume 10.4 fl (7.4-10.4); Platelet Count Result 312 k/mm3 (150-375); Red Blood Count 3.13 M/mm3 (4.2-5.4); Red Cell Distribution Width 17.9 % (11.5-14.5); White Blood Count 8.7 K/mm3 (4.5-10.0)
[2021-05-26 12:59] LABS: Glucose Point of Care 198 mg/dl (65-105)
--- NOTE | 2021-05-26 14:49 | P.PNNP_ITS ---
Progress Note: A&P Assessment and Plan (1) Chronic kidney disease, stage IV (severe): Code(s): N18.4 - Chronic kidney disease, stage 4 (severe) Status: Chronic Assessment and Plan: * previous baseline creatinine was ~ 1.5 - 1.8mg/dl * however, from last hospitalization, it seems her creatinine is now ~ 2.0 - 2. 3mg/dl * due to HTN, diabetes, vascular disease, diuretics, and age-related change (2) Ventricular tachycardia: Code(s): I47.2 - Ventricular tachycardia Status: Acute Assessment and Plan: * as noted by telemetry in ER * Cardiology following (3) Altered mental status: Code(s): R41.82 - Altered mental status, unspecified Status: Acute Assessment and Plan: * clinically better * thought to be secondary to gabapentin * however, UTI may be playing a role as well * follow mentation (4) Anemia: Code(s): D64.9 - Anemia, unspecified Status: Acute Assessment and Plan: * due in part to underlying CKD * continue Epogen while hospitalized * follow trend of H/H (5) Chronic combined systolic and diastolic CHF (congestive heart failure): Code(s): I50.42 - Chronic combined systolic (congestive) and diastolic (congestive) heart failure Status: Acute Assessment and Plan: * appears compensated despite elevated BNP * diuretics on hold currently * bumex restarted today * follow I/Os and daily weights (6) Urinary tract infection: Code(s): N39.0 - Urinary tract infection, site not specified Status: Acute Assessment and Plan: * as noted by urine culture * start antibiotics (7) Weakness: Code(s): R53.1 - Weakness Status: Acute Assessment and Plan: * due to deconditioning from last hospitalization and previous ankle fracture * PT/OT as tolerated Will continue to follow. Subjective Date/time seen: 05/26/21 14:49 Appears more awake in general but still has moments of forgetfulness/memory lapses; no apparent distress voiced; just started on antibiotics for urinary tract infection; no apparent distress at the time of my visit; no acute events/issues overnight or earlier this AM. Exam Narrative: Exam Narrative: General: WD/WN female in NAD Heart: normal S1 and S2; no rub Lungs: decreased at bases Abdomen: soft, nontender, nondistended, positive bowel sounds Extremities: no cyanosis or clubbing; trace edema Skin: warm and dry Objective Data Vital Signs Vital Signs: Vital Signs Temp Pulse Resp BP Pulse Ox 05/26/21 09:01 76 05/26/21 08:00 36.6 C 78 18 123/54 L 98 05/26/21 06:00 78 05/26/21 04:00 37.3 C 73 12 140/75 99 05/26/21 02:00 65 05/26/21 00:00 37.2 C 70 13 138/72 98 05/25/21 22:00 62 05/25/21 20:29 77 05/25/21 20:00 37.2 C 78 12 131/69 99 Intake/Output Intake/Output: Intake & Output 05/23/21 05/24/21 05/25/21 05/26/21 23:59 23:59 23:59 23:59 Intake Total 340 300 Output Total 30 230 Balance 310 70 Meds/Results Medications: Active Medications Generic Name Dose Route Start Last Admin Trade Name Em PRN Reason Stop Dose Admin Acetaminophen 1,000 mg 05/24/21 23:41 Acetamin
--- NOTE | 2021-05-26 14:49 | PM.PNNEP ---
Progress Note: A&P Assessment and Plan (1) Chronic kidney disease, stage IV (severe): Code(s): N18.4 - Chronic kidney disease, stage 4 (severe) Status: Chronic Assessment and Plan: previous baseline creatinine was ~ 1.5 - 1.8mg/dl however, from last hospitalization, it seems her creatinine is now ~ 2.0 - 2.3mg/dl due to HTN, diabetes, vascular disease, diuretics, and age-related change (2) Ventricular tachycardia: Code(s): I47.2 - Ventricular tachycardia Status: Acute Assessment and Plan: as noted by telemetry in ER Cardiology following (3) Altered mental status: Code(s): R41.82 - Altered mental status, unspecified Status: Acute Assessment and Plan: clinically better thought to be secondary to gabapentin however, UTI may be playing a role as well follow mentation (4) Anemia: Code(s): D64.9 - Anemia, unspecified Status: Acute Assessment and Plan: due in part to underlying CKD continue Epogen while hospitalized follow trend of H/H (5) Chronic combined systolic and diastolic CHF (congestive heart failure): Code(s): I50.42 - Chronic combined systolic (congestive) and diastolic (congestive) heart failure Status: Acute Assessment and Plan: appears compensated despite elevated BNP diuretics on hold currently bumex restarted today follow I/Os and daily weights (6) Urinary tract infection: Code(s): N39.0 - Urinary tract infection, site not specified Status: Acute Assessment and Plan: as noted by urine culture start antibiotics (7) Weakness: Code(s): R53.1 - Weakness Status: Acute Assessment and Plan: due to deconditioning from last hospitalization and previous ankle fracture PT/OT as tolerated Will continue to follow. Subjective Date/time seen: 05/26/21 14:49 Appears more awake in general but still has moments of forgetfulness/memory lapses; no apparent distress voiced; just started on antibiotics for urinary tract infection; no apparent distress at the time of my visit; no acute events/issues overnight or earlier this AM. Exam Narrative: Exam Narrative: General: WD/WN female in NAD Heart: normal S1 and S2; no rub Lungs: decreased at bases Abdomen: soft, nontender, nondistended, positive bowel sounds Extremities: no cyanosis or clubbing; trace edema Skin: warm and dry Objective Data Vital Signs Vital Signs: Vital Signs Temp Pulse Resp BP Pulse Ox 05/26/21 09:01 76 05/26/21 08:00 36.6 C 78 18 123/54 L 98 05/26/21 06:00 78 05/26/21 04:00 37.3 C 73 12 140/75 99 05/26/21 02:00 65 05/26/21 00:00 37.2 C 70 13 138/72 98 05/25/21 22:00 62 05/25/21 20:29 77 05/25/21 20:00 37.2 C 78 12 131/69 99 Intake/Output Intake/Output: Intake & Output 05/23/21 05/24/21 05/25/21 05/26/21 23:59 23:59 23:59 23:59 Intake Total 340 300 Output Total 30 230 Balance 310 70 Meds/Results Medications: Active Medications Generic Name Dose Route Start Last Admin Trade Name Freq PRN Reason Stop Dose Admin Acetaminophen 1,000 mg 05/24/21 23:41 Acetaminophen 500 Mg Tablet PO TID PRN Pain Rated 1-3 Albuterol 1 puff 05/24/21 23:41 Albuterol Sulfate (*Sp) Aerosol 1 Puff INHALATION Q4H PRN Shortness Of Breath Apixaban 5 mg 05/25/21 09:00 05/26/21 09:01 Apixaban 5 Mg Tablet PO 5 mg BID ANY Administration Aspirin 81 mg 05/25/21 09:00 05/26/21 09:00 Aspirin 81 Mg Enteric Tablet PO 81 mg QAM [facility] Administration Bumetanide 1 mg 05/26/21 09:00 05/26/21 09:00 Bumetanide 1 Mg Tablet PO 1 mg DAILY ANY Administration Ferrous Sulfate 324 mg 05/25/21 08:00 05/26/21 09:00 Ferrous Sulfate 324 Mg Tablet PO 324 mg DAILY@0800 [facility] Administration Insulin Lispro Protam/Lispro Human 20 units 05/25/21 08:00 05/26/21 08:57 Insulin N
--- NOTE | 2021-05-26 15:23 | PM.IMPN ---
Progress Note: A&P Assessment and Plan (1) Ventricular tachycardia: Code(s): I47.2 - Ventricular tachycardia Status: Acute Assessment and Plan: Admit to telemetry Continue to monitor Core status is DNR Hospice has been discussed with daughter who is agreeable to it care coordination consult for hospice referral 05/26/21 15:23 Narrative: This is an 86-year-old female with past medical history significant for atrial fibrillation anticoagulated, type 2 diabetes mellitus insulin dependent, diabetic peripheral neuropathy, congestive heart failure, hypothyroidism, depression. Who was just discharged to [place] and she has been brought back after her repeat lab work was abnormal upon review a has been found that the lab work is consistent for worsening creatinine, also on emergency room telemetry she was witnessed to have a run of V-tach. I have talked to the daughter about hospice and she is in agreement. Patient has not been able to provide any history due to confusion daughter states that she has been like this for several weeks now to probably months. 05/25 patient daughter present in the initially there was thought about admitting the patient under hospice however patient daughter had decided against hospice and would like to continue current management, patient has acute on chronic kidney disease will gently and will consult Nephrology for further recommendation patient also seen by cardiology and further recommendation to follow, unfortunately patient is not able to any review of symptom. 05/26 today patient is slightly awake but unfortunately still unable to provide detailed review of symptom, patient seen by Nephrology suspect patient elevated creatinine to hypertension, diabetes,vascular disease and diuretic as well as as related, stopped IVF patient may be 3rd spacing will restart diuretics if needed, will have a PT OT evaluate the the patient and further recommendation to follow. (2) Anemia: Code(s): D64.9 - Anemia, unspecified Status: Acute Assessment and Plan: Likely secondary to kidney failure On Procrit (3) Chronic renal insufficiency: Code(s): N18.9 - Chronic kidney disease, unspecified Status: Acute Assessment and Plan: Holding irbesartan and metolazone and bumetanide Repeat BMP in a.m. Gentle hydration (4) Weakness: Code(s): R53.1 - Weakness Status: Acute Assessment and Plan: Likely secondary to chronic illness and deconditioning (5) Diabetic neuropathy associated with type 2 diabetes mellitus: Code(s): E11.40 - Type 2 diabetes mellitus with diabetic neuropathy, unspecified Status: Acute Assessment and Plan: Holding gabapentin due to altered mental status (6) CHF (congestive heart failure): Qualifiers: Heart failure chronicity: acute on chronic Heart failure type: unspecified Qualified Code(s): I50.9 - Heart failure, unspecified Code(s): I50.9 - Heart failure, unspecified Status: Acute Assessment and Plan: BMP is elevated On physical exam no signs of distress (7) Closed fracture dislocation of ankle with malunion: Qualifiers: Laterality: right Qualified Code(s): S82.891P - Other fracture of right lower leg, subsequent encounter for closed fracture with malunion Code(s): S82.899P - Other fracture of unspecified lower leg, subsequent encounter for closed fracture with malunion Status: Acute Assessment and Plan: Palliative care (8) Chronic combined systolic and diastolic CHF (congestive heart failure): Code(s): I50.42 - Chronic combined systolic (congestive) and diastolic (congestive) heart failure Status: Acute Assessment and Plan: Elevated BNP Patient with worsening kidney failure as well (9) Altered mental status: Code(s): R41.82 - Altered mental status, unspecified Status: Acute Assessment and Plan: Holding Ati
[2021-05-26 17:19] LABS: Glucose Point of Care 170 mg/dl (65-105)
[2021-05-26 20:24] LABS: Glucose Point of Care 266 mg/dl (65-105)
[2021-05-27] VITALS (8 sets, daily range): BP systolic 104–148; BP diastolic 40–62; PULSE 67–74; RESP 18–20; TEMP 36.1–36.7; O2SAT 97–98
[2021-05-27] MEDS: LEVOTHYROXINE SODIUM 100 MCG TABLET PO (05:38)
[2021-05-27] MEDS: LEVOTHYROXINE SODIUM 75 MCG TABLET PO (05:39)
[2021-05-27 06:21] LABS: Albumin Level 3.3 g/dL (3.5-5.1); Anion Gap 8 mmol/L (8-16); Blood Urea Nitrogen 72 mg/dL (7-17); Calcium 8.8 mg/dL (8.4-10.2); Carbon Dioxide 28 mmol/L (22-30); Chloride 106 mmol/L (98-107); Estimated CRCL calculation 28 ml/min; Estimated Glomerular Filt Rate 33; Glucose 74 mg/dL (65-105); Phosphorus 3.7 mg/dL (2.5-4.5); Potassium 3.6 mmol/L (3.4-5.0); Sodium 142 mmol/L (137-145)
[2021-05-27 08:21] LABS: Glucose Point of Care 80 mg/dl (65-105)
[2021-05-27] MEDS: CIPROFLOXACIN 400 MG/D5W 200ML 200 ML 200 MG IVPB (10:06)
[2021-05-27] MEDS: METOPROLOL TARTRATE 12.5 MG TABLET PO ×2 (10:13→21:35)
[2021-05-27] MEDS: BUMETANIDE 1 MG TABLET PO (10:14)
[2021-05-27] MEDS: ASPIRIN 81 MG ENTERIC TABLET PO (10:14)
[2021-05-27] MEDS: PRAVASTATIN SODIUM 20 MG TABLET PO (10:14)
[2021-05-27] MEDS: FERROUS SULFATE 324 MG TABLET PO (10:14)
[2021-05-27] MEDS: SILVERGEL (ELTA) 45 ML 1 APPLIC TOPICAL (10:20)
[2021-05-27] MEDS: APIXABAN 5 MG TABLET PO ×2 (10:20→17:13)
[2021-05-27] MEDS: TOLNAFTATE 1% POWDER 45 GM BTL 1 APPLIC TOPICAL ×2 (10:20→21:36)
--- NOTE | 2021-05-27 11:08 | PC.NURSE ---
Patient complained of burning and itching with her Cipro infusion. IV was stopped and flushed. Doctor Ashley was notified.
[2021-05-27 11:48] LABS: Glucose Point of Care 86 mg/dl (65-105)
--- NOTE | 2021-05-27 14:11 | P.PNIM_ITS ---
Progress Note: A&P Assessment and Plan (1) Ventricular tachycardia: Code(s): I47.2 - Ventricular tachycardia Status: Acute Assessment and Plan: Admit to telemetry Continue to monitor Core status is DNR Hospice has been discussed with daughter who is agreeable to it care coordination consult for hospice referral 05/26/21 15:23 Narrative: This is an 86-year-old female with past medical history significant f or atrial fibrillation anticoagulated, type 2 diabetes mellitus insulin dependent, diabetic peripheral neuropathy, congestive heart failure, hypothyroidism, depression. Who was just discharged to [place] and she has been brought back after her repeat lab work was abnormal upon review a has been found that the lab work is consistent for worsening creatinine, also on emergency room telemetry she was witnessed to have a run of V-tach. I have talked to the daughter about hospice and she is in agreement. Patient has not been able to provide any history due to confusion daughter states that she has been like this for several weeks now to probably months. 05/25 patient daughter present in the initially there was thought about admitting the patient under hospice however patient daughter had decided against hospice and would like to continue current management, patient has acute on chronic kidney disease will gently and will consult Nephrology for further recommendation patient also seen by cardiology and further recommendation to follow, unfortunately patient is not able to any review of symptom. 05/26 today patient is slightly awake but unfortunately still unable to provide detailed review of symptom, patient seen by Nephrology suspect patient elevated creatinine to hypertension, diabetes,vascular disease and diuretic as well as as related, stopped IVF patient may be 3rd spacing will restart diuretics if needed, will have a PT OT evaluate the the patient and further recommendation to follow. (2) Anemia: Code(s): D64.9 - Anemia, unspecified Status: Acute Assessment and Plan: Likely secondary to kidney failure On Procrit (3) Chronic renal insufficiency: Code(s): N18.9 - Chronic kidney disease, unspecified Status: Acute Assessment and Plan: Holding irbesartan and metolazone and bumetanide Repeat BMP in a.m. Gentle hydration (4) Weakness: Code(s): R53.1 - Weakness Status: Acute Assessment and Plan: Likely secondary to chronic illness and deconditioning (5) Diabetic neuropathy associated with type 2 diabetes mellitus: Code(s): E11.40 - Type 2 diabetes mellitus with diabetic neuropathy, unspecified Status: Acute Assessment and Plan: Holding gabapentin due to altered mental status (6) CHF (congestive heart failure): Qualifiers: Heart failure chronicity: acute on chronic Heart failure type: unspecified Qualified Code(s): I50.9 - Heart failure, unspecified Code(s): I50.9 - Heart failure, unspecified Status: Acute Assessment and Plan: BMP is elevated On physical exam no signs of distress (7) Closed fracture dislocation of ankle with malunion: Qualifiers: Laterality: right Qualified Code(s): S82.891P - Other fracture of right lower leg, subsequent encounter for closed fracture with malunion Code(s): S82.899P - Other fracture of unspecified lower leg, subsequent encounter for closed fracture with malunion Status: Acute Assessment and Plan: Palliative care (8) Chronic combined systolic and diastolic CHF (congestive heart failure): Code(s): I50.
--- NOTE | 2021-05-27 15:12 | PM.PNNEP ---
Progress Note: A&P Assessment and Plan (1) Chronic kidney disease, stage IV (severe): Code(s): N18.4 - Chronic kidney disease, stage 4 (severe) Status: Chronic Assessment and Plan: previous baseline creatinine was ~ 1.5 - 1.8mg/dl however, from last hospitalization, it seems her creatinine is now ~ 2.0 - 2.3mg/dl due to HTN, diabetes, vascular disease, diuretics, and age-related change adjustment in dose/frequency of diuretic use and holding ARB likely explains fluctuating creatinine (2) Ventricular tachycardia: Code(s): I47.2 - Ventricular tachycardia Status: Acute Assessment and Plan: as noted by telemetry in ER Cardiology following (3) Altered mental status: Code(s): R41.82 - Altered mental status, unspecified Status: Acute Assessment and Plan: clinically better thought to be secondary to gabapentin however, UTI may be playing a role as well follow mentation (4) Anemia: Code(s): D64.9 - Anemia, unspecified Status: Acute Assessment and Plan: due in part to underlying CKD continue Epogen while hospitalized follow trend of H/H (5) Chronic combined systolic and diastolic CHF (congestive heart failure): Code(s): I50.42 - Chronic combined systolic (congestive) and diastolic (congestive) heart failure Status: Acute Assessment and Plan: appears compensated despite elevated BNP diuretics on hold currently bumex restarted today follow I/Os and daily weights (6) Urinary tract infection: Code(s): N39.0 - Urinary tract infection, site not specified Status: Acute Assessment and Plan: as noted by urine culture start antibiotics (7) Weakness: Code(s): R53.1 - Weakness Status: Acute Assessment and Plan: due to deconditioning from last hospitalization and previous ankle fracture PT/OT as tolerated Will continue to follow. Subjective Date/time seen: 05/27/21 15:12 No new issues or problems to report at this time; antibiotics adjusted given urine culture sensitivities; respiratory status stable; no reported issues/events overnight or earlier today; kidney function better than baseline (but on lower dose diuretics and off ARB). Exam Narrative: Exam Narrative: General: WD/WN female in NAD Heart: normal S1 and S2; no rub Lungs: decreased at bases Abdomen: soft, nontender, nondistended, positive bowel sounds Extremities: no cyanosis or clubbing; trace edema Skin: warm and intact Objective Data Vital Signs Vital Signs: Vital Signs Temp Pulse Resp BP Pulse Ox 05/27/21 10:13 72 05/27/21 08:00 72 20 97 05/27/21 07:51 36.4 C 68 20 121/42 L 97 05/27/21 03:25 36.3 C L 67 18 121/40 L 98 05/26/21 20:08 36.0 C L 87 18 131/47 L 100 05/26/21 20:03 80 Intake/Output Intake/Output: Intake & Output 05/24/21 05/25/21 05/26/21 05/27/21 23:59 23:59 23:59 23:59 Intake Total 340 590 372.5 Output Total 30 730 730 Balance 310 -140 -357.5 Meds/Results Medications: Active Medications Generic Name Dose Route Start Last Admin Trade Name Freq PRN Reason Stop Dose Admin Acetaminophen 1,000 mg 05/24/21 23:41 Acetaminophen 500 Mg Tablet PO TID PRN Pain Rated 1-3 Albuterol 1 puff 05/24/21 23:41 Albuterol Sulfate (*Sp) Aerosol 1 Puff INHALATION Q4H PRN Shortness Of Breath Apixaban 5 mg 05/25/21 09:00 05/27/21 10:20 Apixaban 5 Mg Tablet PO 5 mg BID ANY Administration Aspirin 81 mg 05/25/21 09:00 05/27/21 10:14 Aspirin 81 Mg Enteric Tablet PO 81 mg QAM ANY Administration Bumetanide 1 mg 05/26/21 09:00 05/27/21 10:14 Bumetanide 1 Mg Tablet PO 1 mg DAILY ANY Administration Ferrous Sulfate 324 mg 05/25/21 08:00 05/27/21 10:14 Ferrous Sulfate 324 Mg Tablet PO 324 mg DAILY@0800 ANY Administration Ciprofloxacin/Dextrose 200 mls @ 200 mls/hr 05/03
--- NOTE | 2021-05-27 15:12 | P.PNNP_ITS ---
Progress Note: A&P Assessment and Plan (1) Chronic kidney disease, stage IV (severe): Code(s): N18.4 - Chronic kidney disease, stage 4 (severe) Status: Chronic Assessment and Plan: * previous baseline creatinine was ~ 1.5 - 1.8mg/dl * however, from last hospitalization, it seems her creatinine is now ~ 2.0 - 2. 3mg/dl * due to HTN, diabetes, vascular disease, diuretics, and age-related change * adjustment in dose/frequency of diuretic use and holding ARB likely explains fluctuating creatinine (2) Ventricular tachycardia: Code(s): I47.2 - Ventricular tachycardia Status: Acute Assessment and Plan: * as noted by telemetry in ER * Cardiology following (3) Altered mental status: Code(s): R41.82 - Altered mental status, unspecified Status: Acute Assessment and Plan: * clinically better * thought to be secondary to gabapentin * however, UTI may be playing a role as well * follow mentation (4) Anemia: Code(s): D64.9 - Anemia, unspecified Status: Acute Assessment and Plan: * due in part to underlying CKD * continue Epogen while hospitalized * follow trend of H/H (5) Chronic combined systolic and diastolic CHF (congestive heart failure): Code(s): I50.42 - Chronic combined systolic (congestive) and diastolic (congestive) heart failure Status: Acute Assessment and Plan: * appears compensated despite elevated BNP * diuretics on hold currently * bumex restarted today * follow I/Os and daily weights (6) Urinary tract infection: Code(s): N39.0 - Urinary tract infection, site not specified Status: Acute Assessment and Plan: * as noted by urine culture * start antibiotics (7) Weakness: Code(s): R53.1 - Weakness Status: Acute Assessment and Plan: * due to deconditioning from last hospitalization and previous ankle fracture * PT/OT as tolerated Will continue to follow. Subjective Date/time seen: 05/27/21 15:12 No new issues or problems to report at this time; antibiotics adjusted given urine culture sensitivities; respiratory status stable; no reported issues/events overnight or earlier today; kidney function better than baseline (but on lower dose diuretics and off ARB). Exam Narrative: Exam Narrative: General: WD/WN female in NAD Heart: normal S1 and S2; no rub Lungs: decreased at bases Abdomen: soft, nontender, nondistended, positive bowel sounds Extremities: no cyanosis or clubbing; trace edema Skin: warm and intact Objective Data Vital Signs Vital Signs: Vital Signs Temp Pulse Resp BP Pulse Ox 05/27/21 10:13 72 05/27/21 08:00 72 20 97 05/27/21 07:51 36.4 C 68 20 121/42 L 97 05/27/21 03:25 36.3 C L 67 18 121/40 L 98 05/26/21 20:08 36.0 C L 87 18 131/47 L 100 05/26/21 20:03 80 Intake/Output Intake/Output: Intake & Output 05/24/21 05/25/21 05/26/21 05/27/21 23:59 23:59 23:59 23:59 Intake Total 340 590 372.5 Output Total 30 730 730 Balance 310 -140 -357.5 Meds/Results Medications: Active Medications Generic Name Dose Route Start Last Admin Trade Name Freq PRN Reason Stop Dose Admin Acetaminophen 1,000 mg 05/24/21 23:41
--- NOTE | 2021-05-27 15:35 | PC.NURSE ---
This patient, Fawn Montgomery, was received from [id number] on 05/27/21 at 1535. Patient/family oriented to unit policies and routines
--- NOTE | 2021-05-27 17:05 | PC.NURSE ---
Bedside glucose 48, apple juice x2 given to patient, MD notified, orders received to hold pm insulin. At 1731 blood sugar 45, orange juice x1, w/milk given, MD notified for hypoglycemia. Son at bedside assisted w/ordering supper for patient.
[2021-05-27 17:18] LABS: Glucose Point of Care 48 mg/dl (65-105)
[2021-05-27 17:38] LABS: Glucose Point of Care 45 mg/dl (65-105)
--- NOTE | 2021-05-27 18:05 | PC.NURSE ---
Accucheck 53, attempted glucose iv, iv site infiltrated. 183 new iv site established, glucose 12.5mg given ivp.
[2021-05-27] MEDS: DEXTROSE 50% 25 GM/50 ML SYRINGE IV PUSH (18:07)
[2021-05-27 18:40] LABS: Glucose Point of Care 53 mg/dl (65-105)
--- NOTE | 2021-05-27 18:45 | PC.NURSE ---
blood sugar 155, appetite remains poor, son at bedside states he is unable to get her to eat. Patient resting quietly.
[2021-05-27 18:52] LABS: Glucose Point of Care 155 mg/dl (65-105)
[2021-05-27 23:09] LABS: Glucose Point of Care 136 mg/dl (65-105)
[2021-05-28 06:00] VITALS: BP 82/64; PULSE 83; RESP 18; TEMP 36.6; O2SAT 100
[2021-05-28] MEDS: LEVOTHYROXINE SODIUM 100 MCG TABLET PO (06:37)
[2021-05-28] MEDS: LEVOTHYROXINE SODIUM 75 MCG TABLET PO (06:37)
[2021-05-28 07:00] LABS: Albumin Level 3.4 g/dL (3.5-5.1); Anion Gap 13 mmol/L (8-16); Blood Urea Nitrogen 75 mg/dL (7-17); Calcium 9.2 mg/dL (8.4-10.2); Carbon Dioxide 25 mmol/L (22-30); Chloride 104 mmol/L (98-107); Estimated CRCL calculation 26 ml/min; Estimated Glomerular Filt Rate 31; Glucose 103 mg/dL (65-105); Phosphorus 5.1 mg/dL (2.5-4.5); Potassium 3.9 mmol/L (3.4-5.0); Sodium 142 mmol/L (137-145)
[2021-05-28 08:19] LABS: Hemoglobin 10.2 g/dL (12.0-15.0); Mean Corpuscular HGB Conc 29.1 g/dl (32-36); Mean Corpuscular Hemoglobin 29.4 pg (26-34); Mean Corpuscular Volume 100.9 fl (80-100); Mean Platelet Volume 10.7 fl (7.4-10.4); Platelet Count Result 331 k/mm3 (150-375); Red Blood Count 3.47 M/mm3 (4.2-5.4); Red Cell Distribution Width 18.6 % (11.5-14.5); White Blood Count 9.6 K/mm3 (4.5-10.0)
[2021-05-28 08:22] LABS: Glucose Point of Care 77 mg/dl (65-105)
[2021-05-28 08:44] LABS: Albumin Level 3.4 g/dL (3.5-5.1); Anion Gap 12 mmol/L (8-16); Blood Urea Nitrogen 74 mg/dL (7-17); Calcium 9.3 mg/dL (8.4-10.2); Carbon Dioxide 25 mmol/L (22-30); Chloride 105 mmol/L (98-107); Estimated CRCL calculation 28 ml/min; Estimated Glomerular Filt Rate 33; Glucose 103 mg/dL (65-105); Magnesium 2.2 mg/dL (1.6-2.3); Phosphorus 4.9 mg/dL (2.5-4.5); Potassium 3.9 mmol/L (3.4-5.0); Sodium 142 mmol/L (137-145)
[2021-05-28] MEDS: CIPROFLOXACIN 400 MG/D5W 200ML 200 ML 200 MG IVPB (09:19)
[2021-05-28 09:23] VITALS: PULSE 85
[2021-05-28] MEDS: METOPROLOL TARTRATE 12.5 MG TABLET PO ×2 (09:23→21:24)
[2021-05-28] MEDS: SILVERGEL (ELTA) 45 ML 1 APPLIC TOPICAL (09:23)
[2021-05-28] MEDS: ASPIRIN 81 MG ENTERIC TABLET PO (09:23)
[2021-05-28] MEDS: BUMETANIDE 1 MG TABLET PO (09:23)
[2021-05-28] MEDS: PRAVASTATIN SODIUM 20 MG TABLET PO (09:23)
[2021-05-28] MEDS: APIXABAN 5 MG TABLET PO ×2 (09:23→17:12)
[2021-05-28] MEDS: FERROUS SULFATE 324 MG TABLET PO (09:24)
[2021-05-28] MEDS: TOLNAFTATE 1% POWDER 45 GM BTL 1 APPLIC TOPICAL ×2 (09:24→21:25)
[2021-05-28 12:12] LABS: Glucose Point of Care 136 mg/dl (65-105)
[2021-05-28 14:00] VITALS: BP 108/43; PULSE 70; RESP 18; TEMP 36.4; O2SAT 100
--- NOTE | 2021-05-28 14:23 | PM.PNNEP ---
Progress Note: A&P Assessment and Plan (1) Chronic kidney disease, stage IV (severe): Code(s): N18.4 - Chronic kidney disease, stage 4 (severe) Status: Chronic Assessment and Plan: previous baseline creatinine was ~ 1.5 - 1.8mg/dl however, from last hospitalization, it seems her creatinine was running ~ 2.0 - 2.3mg/dl (new baseline?) due to HTN, diabetes, vascular disease, diuretics, and age-related change adjustment in dose/frequency of diuretics and holding ARB likely explains fluctuating creatinine (2) Ventricular tachycardia: Code(s): I47.2 - Ventricular tachycardia Status: Acute Assessment and Plan: as noted by telemetry in ER Cardiology following (3) Altered mental status: Code(s): R41.82 - Altered mental status, unspecified Status: Acute Assessment and Plan: clinically better thought to be secondary to gabapentin however, UTI may be playing a role as well follow mentation (4) Anemia: Code(s): D64.9 - Anemia, unspecified Status: Acute Assessment and Plan: due in part to underlying CKD continue Epogen while hospitalized follow trend of H/H (5) Chronic combined systolic and diastolic CHF (congestive heart failure): Code(s): I50.42 - Chronic combined systolic (congestive) and diastolic (congestive) heart failure Status: Acute Assessment and Plan: appears compensated despite elevated BNP bumex restarted (but at half dose) follow I/Os and daily weights check CXR tomorrow to assess need for increased diuretics (was on bumex 2mg, acetazolamide 125mg, and metolazone..) (6) Urinary tract infection: Code(s): N39.0 - Urinary tract infection, site not specified Status: Acute Assessment and Plan: as noted by urine culture on antibiotics (7) Weakness: Code(s): R53.1 - Weakness Status: Acute Assessment and Plan: due to deconditioning from last hospitalization and previous ankle fracture PT/OT as tolerated Will continue to follow. Subjective Date/time seen: 05/28/21 14:23 Overall, she has made slow and steady improvement -- she appears more awake/alert in comparison to admission; breathing/respiratory status is stable; no other acute issues or problems voiced at the time of my visit; no events overnight or earlier this AM. Exam Narrative: Exam Narrative: General: WD/WN female in NAD Heart: normal S1 and S2; no rub Lungs: decreased at bases Abdomen: soft, nontender, nondistended, positive bowel sounds Extremities: no cyanosis or clubbing; trace edema Skin: No rash or nodules Objective Data Vital Signs Vital Signs: Vital Signs Temp Pulse Resp BP Pulse Ox 05/28/21 14:00 36.4 C 70 18 108/43 L 100 05/28/21 09:23 85 05/28/21 06:00 36.6 C 83 18 82/64 L 100 05/27/21 22:00 36.1 C L 74 18 104/62 98 05/27/21 21:35 74 05/27/21 20:45 74 18 98 05/27/21 15:53 36.7 C 71 18 148/61 H 98 Intake/Output Intake/Output: Intake & Output 05/25/21 05/26/21 05/27/21 05/28/21 23:59 23:59 23:59 23:59 Intake Total 340 590 767.5 1160 Output Total 30 730 760 Balance 310 -140 7.5 1160 Meds/Results Medications: Active Medications Generic Name Dose Route Start Last Admin Trade Name Freq PRN Reason Stop Dose Admin Acetaminophen 1,000 mg 05/24/21 23:41 Acetaminophen 500 Mg Tablet PO TID PRN Pain Rated 1-3 Albuterol 1 puff 05/24/21 23:41 Albuterol Sulfate (*Sp) Aerosol 1 Puff INHALATION Q4H PRN Shortness Of Breath Apixaban 5 mg 05/25/21 09:00 05/28/21 09:23 Apixaban 5 Mg Tablet PO 5 mg BID ANY Administration Aspirin 81 mg 05/25/21 09:00 05/28/21 09:23 Aspirin 81 Mg Enteric Tablet PO 81 mg QAM ANY Administration Bumetanide 1 mg 05/26/21 09:00 05/28/21 09:23 Bumetanide 1 Mg Tablet PO 1 mg DAILY ANY Administration Dextrose 12.5 gm 05/27/21 17:3
--- NOTE | 2021-05-28 14:23 | P.PNNP_ITS ---
Progress Note: A&P Assessment and Plan (1) Chronic kidney disease, stage IV (severe): Code(s): N18.4 - Chronic kidney disease, stage 4 (severe) Status: Chronic Assessment and Plan: * previous baseline creatinine was ~ 1.5 - 1.8mg/dl * however, from last hospitalization, it seems her creatinine was running ~ 2.0 - 2.3mg/dl (new baseline?) * due to HTN, diabetes, vascular disease, diuretics, and age-related change * adjustment in dose/frequency of diuretics and holding ARB likely explains fluctuating creatinine (2) Ventricular tachycardia: Code(s): I47.2 - Ventricular tachycardia Status: Acute Assessment and Plan: * as noted by telemetry in ER * Cardiology following (3) Altered mental status: Code(s): R41.82 - Altered mental status, unspecified Status: Acute Assessment and Plan: * clinically better * thought to be secondary to gabapentin * however, UTI may be playing a role as well * follow mentation (4) Anemia: Code(s): D64.9 - Anemia, unspecified Status: Acute Assessment and Plan: * due in part to underlying CKD * continue Epogen while hospitalized * follow trend of H/H (5) Chronic combined systolic and diastolic CHF (congestive heart failure): Code(s): I50.42 - Chronic combined systolic (congestive) and diastolic (congestive) heart failure Status: Acute Assessment and Plan: * appears compensated despite elevated BNP * bumex restarted (but at half dose) * follow I/Os and daily weights * check CXR tomorrow to assess need for increased diuretics (was on bumex 2mg, acetazolamide 125mg, and metolazone..) (6) Urinary tract infection: Code(s): N39.0 - Urinary tract infection, site not specified Status: Acute Assessment and Plan: * as noted by urine culture * on antibiotics (7) Weakness: Code(s): R53.1 - Weakness Status: Acute Assessment and Plan: * due to deconditioning from last hospitalization and previous ankle fracture * PT/OT as tolerated Will continue to follow. Subjective Date/time seen: 05/28/21 14:23 Overall, she has made slow and steady improvement -- she appears more awake/alert in comparison to admission; breathing/respiratory status is stable; no other acute issues or problems voiced at the time of my visit; no events overnight or earlier this AM. Exam Narrative: Exam Narrative: General: WD/WN female in NAD Heart: normal S1 and S2; no rub Lungs: decreased at bases Abdomen: soft, nontender, nondistended, positive bowel sounds Extremities: no cyanosis or clubbing; trace edema Skin: No rash or nodules Objective Data Vital Signs Vital Signs: Vital Signs Temp Pulse Resp BP Pulse Ox 05/28/21 14:00 36.4 C 70 18 108/43 L 100 05/28/21 09:23 85 05/28/21 06:00 36.6 C 83 18 82/64 L 100 05/27/21 22:00 36.1 C L 74 18 104/62 98 05/27/21 21:35 74 05/27/21 20:45 74 18 98 05/27/21 15:53 36.7 C 71 18 148/61 H 98 Intake/Output Intake/Output: Intake & Output 05/25/21 05/26/21 05/27/21 05/28/21 23:59 23:59 23:59 23:59 Intake Total 340 590 767.5 1160 Output Total 30 730 760 Balance 310 -140 7.5 1160 Meds/Results Medications: Active Medications
--- NOTE | 2021-05-28 15:09 | PM.IMPN ---
Progress Note: A&P Assessment and Plan (1) Ventricular tachycardia: Code(s): I47.2 - Ventricular tachycardia Status: Acute Assessment and Plan: Admit to telemetry Continue to monitor Core status is DNR Hospice has been discussed with daughter who is agreeable to it care coordination consult for hospice referral 05/28/21 15:09 Narrative: This is an 86-year-old female with past medical history significant for atrial fibrillation anticoagulated, type 2 diabetes mellitus insulin dependent, diabetic peripheral neuropathy, congestive heart failure, hypothyroidism, depression. Who was just discharged to [place] and she has been brought back after her repeat lab work was abnormal upon review a has been found that the lab work is consistent for worsening creatinine, also on emergency room telemetry she was witnessed to have a run of V-tach. I have talked to the daughter about hospice and she is in agreement. Patient has not been able to provide any history due to confusion daughter states that she has been like this for several weeks now to probably months. 05/25 patient daughter present in the initially there was thought about admitting the patient under hospice however patient daughter had decided against hospice and would like to continue current management, patient has acute on chronic kidney disease will gently and will consult Nephrology for further recommendation patient also seen by cardiology and further recommendation to follow, unfortunately patient is not able to any review of symptom. 05/26 today patient is slightly awake but unfortunately still unable to provide detailed review of symptom, patient seen by Nephrology suspect patient elevated creatinine to hypertension, diabetes,vascular disease and diuretic as well as as related, stopped IVF patient may be 3rd spacing will restart diuretics if needed, will have a PT OT evaluate the the patient and further recommendation to follow. 05/27 Patient remains clinically is stable unable to provide detailed review of symptoms, urine culture is growing Enterobacter cloacae complex resistant ceftriaxone treated with Cipro, patient is seen by Nephrology suspect patient is 3rd spacing patient is diuresed patient creatinine is improving, will transfer patient out of IMU to medical floor will continue PT OT and further recommendation to follow. 05/28 today patient is more alert and awake states see has a bladder infection being treated, patient was able to use her walker and walked with PT. patient creatinine has improved from 2.5 upon arrival 1.6 today this may be her baseline patient is being gently diurese seen by Nephrology and further recommendation to follow. will continue PT OT patient will benefit going into acute rehab (2) Anemia: Code(s): D64.9 - Anemia, unspecified Status: Acute Assessment and Plan: Likely secondary to kidney failure On Procrit (3) Chronic renal insufficiency: Code(s): N18.9 - Chronic kidney disease, unspecified Status: Acute Assessment and Plan: Holding irbesartan and metolazone and bumetanide Repeat BMP in a.m. Gentle hydration (4) Weakness: Code(s): R53.1 - Weakness Status: Acute Assessment and Plan: Likely secondary to chronic illness and deconditioning (5) Diabetic neuropathy associated with type 2 diabetes mellitus: Code(s): E11.40 - Type 2 diabetes mellitus with diabetic neuropathy, unspecified Status: Acute Assessment and Plan: Holding gabapentin due to altered mental status (6) CHF (congestive heart failure): Qualifiers: Heart failure chronicity: acute on chronic Heart failure type: unspecified Qualified Code(s): I50.9 - Heart failure, unspecified Code(s): I50.9 - Heart failure, unspecified Status: Acute Assessment and Plan: BMP is elevated On physical exam no signs of distress (7) Closed fracture dislocation of ankle with ghislaine
[2021-05-28 17:10] LABS: Glucose Point of Care 107 mg/dl (65-105)
[2021-05-28 21:24] VITALS: PULSE 70
[2021-05-28 21:57] VITALS: BP 119/97; PULSE 75; RESP 20; TEMP 36.8; O2SAT 98
[2021-05-29] VITALS (9 sets, daily range): BP systolic 124–148; BP diastolic 59–80; PULSE 63–78; RESP 16–20; TEMP 36–36.7; O2SAT 79–100
[2021-05-29 01:50] LABS: Glucose Point of Care 41 mg/dl (65-105)
[2021-05-29 03:40] LABS: Glucose Point of Care 79 mg/dl (65-105)
[2021-05-29] MEDS: LEVOTHYROXINE SODIUM 75 MCG TABLET PO (05:34)
[2021-05-29] MEDS: LEVOTHYROXINE SODIUM 100 MCG TABLET PO (05:34)
[2021-05-29 06:14] LABS: Hematocrit 34.7 % (37.0-47.0); Hemoglobin 10.4 g/dL (12.0-15.0); Mean Corpuscular Hemoglobin 29.5 pg (26-34); Mean Corpuscular Volume 98.6 fl (80-100); Mean Platelet Volume 10.6 fl (7.4-10.4); Platelet Count Result 310 k/mm3 (150-375); Red Blood Count 3.52 M/mm3 (4.2-5.4); Red Cell Distribution Width 18.2 % (11.5-14.5); White Blood Count 9.7 K/mm3 (4.5-10.0)
[2021-05-29 06:33] LABS: Albumin Level 3.3 g/dL (3.5-5.1); Anion Gap 11 mmol/L (8-16); Blood Urea Nitrogen 72 mg/dL (7-17); Calcium 8.9 mg/dL (8.4-10.2); Carbon Dioxide 28 mmol/L (22-30); Chloride 103 mmol/L (98-107); Estimated CRCL calculation 26 ml/min; Estimated Glomerular Filt Rate 31; Glucose 80 mg/dL (65-105); Phosphorus 4.5 mg/dL (2.5-4.5); Potassium 3.3 mmol/L (3.4-5.0); Sodium 142 mmol/L (137-145)
[2021-05-29 08:31] LABS: Glucose Point of Care 65 mg/dl (65-105)
[2021-05-29] MEDS: GLUCOSE ORAL GEL 15 GM OF GLUCSE IN 37.5 GM TUBE PO (08:37)
[2021-05-29] MEDS: ASPIRIN 81 MG ENTERIC TABLET PO (08:39)
[2021-05-29] MEDS: POTASSIUM CHLORIDE 20 MEQ TABLET 40 MEQ PO (08:39)
[2021-05-29] MEDS: FERROUS SULFATE 324 MG TABLET PO (08:40)
[2021-05-29] MEDS: PRAVASTATIN SODIUM 20 MG TABLET PO (08:40)
[2021-05-29] MEDS: APIXABAN 5 MG TABLET PO ×2 (08:40→16:11)
[2021-05-29] MEDS: BUMETANIDE 1 MG TABLET PO ×2 (08:40→18:29)
[2021-05-29] MEDS: METOPROLOL TARTRATE 12.5 MG TABLET PO ×2 (08:40→20:12)
[2021-05-29] MEDS: SILVERGEL (ELTA) 45 ML 1 APPLIC TOPICAL (08:45)
[2021-05-29] MEDS: CIPROFLOXACIN 400 MG/D5W 200ML 200 ML 200 MG IVPB (08:45)
[2021-05-29] MEDS: TOLNAFTATE 1% POWDER 45 GM BTL 1 APPLIC TOPICAL ×2 (08:46→20:14)
[2021-05-29] MEDS: diphenhydrAMINE HCl CAP 25 MG CAPSULE PO (09:31)
[2021-05-29 11:43] LABS: Glucose Point of Care 114 mg/dl (65-105)
[2021-05-29 12:26] LABS: Glucose Point of Care 162 mg/dl (65-105)
--- NOTE | 2021-05-29 12:26 | PM.IMPN ---
Progress Note: A&P Assessment and Plan (1) Ventricular tachycardia: Code(s): I47.2 - Ventricular tachycardia Status: Acute Assessment and Plan: Admit to telemetry Continue to monitor Core status is DNR 05/29/21 12:26 Narrative: This is an 86-year-old female with past medical history significant for atrial fibrillation anticoagulated, type 2 diabetes mellitus insulin dependent, diabetic peripheral neuropathy, congestive heart failure, hypothyroidism, depression. Who was just discharged to [place] and she has been brought back after her repeat lab work was abnormal upon review a has been found that the lab work is consistent for worsening creatinine, also on emergency room telemetry she was witnessed to have a run of V-tach. I have talked to the daughter about hospice and she is in agreement. Patient has not been able to provide any history due to confusion daughter states that she has been like this for several weeks now to probably months. 05/25 patient daughter present in the initially there was thought about admitting the patient under hospice however patient daughter had decided against hospice and would like to continue current management, patient has acute on chronic kidney disease will gently and will consult Nephrology for further recommendation patient also seen by cardiology and further recommendation to follow, unfortunately patient is not able to any review of symptom. 05/26 today patient is slightly awake but unfortunately still unable to provide detailed review of symptom, patient seen by Nephrology suspect patient elevated creatinine to hypertension, diabetes,vascular disease and diuretic as well as as related, stopped IVF patient may be 3rd spacing will restart diuretics if needed, will have a PT OT evaluate the the patient and further recommendation to follow. 05/27 Patient remains clinically is stable unable to provide detailed review of symptoms, urine culture is growing Enterobacter cloacae complex resistant ceftriaxone treated with Cipro, patient is seen by Nephrology suspect patient is 3rd spacing patient is diuresed patient creatinine is improving, will transfer patient out of IMU to medical floor will continue PT OT and further recommendation to follow. 05/28 today patient is more alert and awake states see has a bladder infection being treated, patient was able to use her walker and walked with PT. patient creatinine has improved from 2.5 upon arrival 1.6 today this may be her baseline patient is being gently diurese seen by Nephrology and further recommendation to follow. will continue PT OT patient will benefit going into acute rehab. 05/29 today patient appears more somnolent most likely secondary to hypoglycemia, patient has a poor p.o. intake and received SC insulin, will monitor also appears short of breath and patient was placed on 2 L oxygen nasal cannula, patient will benefit apnea link, patient with a UTI being treated with ciprofloxacin, will continue PT OT, patient kidney function is improving, patient is seen by Nephrology and further recommendation to follow. (2) Anemia: Code(s): D64.9 - Anemia, unspecified Status: Acute Assessment and Plan: Likely secondary to kidney failure On Procrit (3) Chronic renal insufficiency: Code(s): N18.9 - Chronic kidney disease, unspecified Status: Acute Assessment and Plan: Holding irbesartan and metolazone and bumetanide Repeat BMP in a.m. Gentle hydration (4) Weakness: Code(s): R53.1 - Weakness Status: Acute Assessment and Plan: Likely secondary to chronic illness and deconditioning (5) Diabetic neuropathy associated with type 2 diabetes mellitus: Code(s): E11.40 - Type 2 diabetes mellitus with diabetic neuropathy, unspecified Status: Acute Assessment and Plan: Holding gabapentin due to altered mental status (6) CHF (congestive heart failure): Qualifiers:
--- NOTE | 2021-05-29 15:30 | P.PNNP_ITS ---
Progress Note: A&P Assessment and Plan (1) Chronic kidney disease, stage IV (severe): Code(s): N18.4 - Chronic kidney disease, stage 4 (severe) Status: Chronic Assessment and Plan: * previous baseline creatinine was ~ 1.5 - 1.8mg/dl * however, from last hospitalization, it seems her creatinine was running ~ 2.0 - 2.3mg/dl (new baseline?) * due to HTN, diabetes, vascular disease, diuretics, and age-related change * adjustment in dose/frequency of diuretics and holding ARB likely explains fluctuating creatinine (2) Ventricular tachycardia: Code(s): I47.2 - Ventricular tachycardia Status: Acute Assessment and Plan: * as noted by telemetry in ER * Cardiology following (3) Altered mental status: Code(s): R41.82 - Altered mental status, unspecified Status: Acute Assessment and Plan: * clinically better * thought to be secondary to gabapentin * however, UTI may be playing a role as well * follow mentation (4) Anemia: Code(s): D64.9 - Anemia, unspecified Status: Acute Assessment and Plan: * due in part to underlying CKD * continue Epogen while hospitalized * follow trend of H/H (5) Chronic combined systolic and diastolic CHF (congestive heart failure): Code(s): I50.42 - Chronic combined systolic (congestive) and diastolic (congestive) heart failure Status: Acute Assessment and Plan: * appears compensated despite elevated BNP * bumex restarted (but at half dose) * follow I/Os and daily weights * CXR noted -- will increase bumex dosage (6) Urinary tract infection: Code(s): N39.0 - Urinary tract infection, site not specified Status: Acute Assessment and Plan: * as noted by urine culture * on antibiotics (7) Weakness: Code(s): R53.1 - Weakness Status: Acute Assessment and Plan: * due to deconditioning from last hospitalization and previous ankle fracture * PT/OT as tolerated Will continue to follow. Subjective Date/time seen: 05/29/21 15:30 Fluctuating mentation noted although previous hypoglycemic event earlier today may be contributing; no apparent distress noted; no events overnight; respiratory status seems stable as well. Exam Narrative: Exam Narrative: General: WD/WN female in NAD Heart: normal S1 and S2; no rub Lungs: decreased at bases Abdomen: soft, nontender, nondistended, positive bowel sounds Extremities: no cyanosis or clubbing; trace edema Skin: warm and dry Objective Data Vital Signs Vital Signs: Vital Signs Temp Pulse Resp BP Pulse Ox 05/29/21 14:00 36.0 C L 78 16 148/80 H 100 05/29/21 12:53 97 05/29/21 08:40 66 05/29/21 08:26 92 05/29/21 08:25 93 05/29/21 05:45 36.6 C 75 20 124/72 100 05/28/21 21:57 36.8 C 75 20 119/97 H 98 05/28/21 21:24 70 Intake/Output Intake/Output: Intake & Output 05/26/21 05/27/21 05/28/21 05/29/21 23:59 23:59 23:59 23:59 Intake Total 590 767.5 1640 480 Output Total 730 760 Balance -140 7.5 1640 480 Meds/Results Medications: Active Medications Generic Name Dose Route Start Last Admin Trade Name Simoneq PRN Reason Stop Dose Admin Acetaminophen 1,000 mg
--- NOTE | 2021-05-29 15:30 | PM.PNNEP ---
Progress Note: A&P Assessment and Plan (1) Chronic kidney disease, stage IV (severe): Code(s): N18.4 - Chronic kidney disease, stage 4 (severe) Status: Chronic Assessment and Plan: previous baseline creatinine was ~ 1.5 - 1.8mg/dl however, from last hospitalization, it seems her creatinine was running ~ 2.0 - 2.3mg/dl (new baseline?) due to HTN, diabetes, vascular disease, diuretics, and age-related change adjustment in dose/frequency of diuretics and holding ARB likely explains fluctuating creatinine (2) Ventricular tachycardia: Code(s): I47.2 - Ventricular tachycardia Status: Acute Assessment and Plan: as noted by telemetry in ER Cardiology following (3) Altered mental status: Code(s): R41.82 - Altered mental status, unspecified Status: Acute Assessment and Plan: clinically better thought to be secondary to gabapentin however, UTI may be playing a role as well follow mentation (4) Anemia: Code(s): D64.9 - Anemia, unspecified Status: Acute Assessment and Plan: due in part to underlying CKD continue Epogen while hospitalized follow trend of H/H (5) Chronic combined systolic and diastolic CHF (congestive heart failure): Code(s): I50.42 - Chronic combined systolic (congestive) and diastolic (congestive) heart failure Status: Acute Assessment and Plan: appears compensated despite elevated BNP bumex restarted (but at half dose) follow I/Os and daily weights CXR noted -- will increase bumex dosage (6) Urinary tract infection: Code(s): N39.0 - Urinary tract infection, site not specified Status: Acute Assessment and Plan: as noted by urine culture on antibiotics (7) Weakness: Code(s): R53.1 - Weakness Status: Acute Assessment and Plan: due to deconditioning from last hospitalization and previous ankle fracture PT/OT as tolerated Will continue to follow. Subjective Date/time seen: 05/29/21 15:30 Fluctuating mentation noted although previous hypoglycemic event earlier today may be contributing; no apparent distress noted; no events overnight; respiratory status seems stable as well. Exam Narrative: Exam Narrative: General: WD/WN female in NAD Heart: normal S1 and S2; no rub Lungs: decreased at bases Abdomen: soft, nontender, nondistended, positive bowel sounds Extremities: no cyanosis or clubbing; trace edema Skin: warm and dry Objective Data Vital Signs Vital Signs: Vital Signs Temp Pulse Resp BP Pulse Ox 05/29/21 14:00 36.0 C L 78 16 148/80 H 100 05/29/21 12:53 97 05/29/21 08:40 66 05/29/21 08:26 92 05/29/21 08:25 93 05/29/21 05:45 36.6 C 75 20 124/72 100 05/28/21 21:57 36.8 C 75 20 119/97 H 98 05/28/21 21:24 70 Intake/Output Intake/Output: Intake & Output 05/26/21 05/27/21 05/28/21 05/29/21 23:59 23:59 23:59 23:59 Intake Total 590 767.5 1640 480 Output Total 730 760 Balance -140 7.5 1640 480 Meds/Results Medications: Active Medications Generic Name Dose Route Start Last Admin Trade Name Freq PRN Reason Stop Dose Admin Acetaminophen 1,000 mg 05/24/21 23:41 Acetaminophen 500 Mg Tablet PO TID PRN Pain Rated 1-3 Albuterol 1 puff 05/24/21 23:41 Albuterol Sulfate (*Sp) Aerosol 1 Puff INHALATION Q4H PRN Shortness Of Breath Apixaban 5 mg 05/25/21 09:00 05/29/21 16:11 Apixaban 5 Mg Tablet PO 5 mg BID ANY Administration Aspirin 81 mg 05/25/21 09:00 05/29/21 08:39 Aspirin 81 Mg Enteric Tablet PO 81 mg QAM ANY Administration Bumetanide 1 mg 05/26/21 09:00 05/29/21 08:40 Bumetanide 1 Mg Tablet PO 1 mg DAILY ANY Administration Dextrose 12.5 gm 05/27/21 17:36 05/27/21 18:07 Dextrose 50% 25 Gm/50 Ml Syringe IV PUSH 12.5 gm PRN PRN Administration Hypoglycemia Protocol Ferrous Sulfate 324
[2021-05-29 17:27] LABS: Glucose Point of Care 142 mg/dl (65-105)
[2021-05-29 22:53] LABS: Glucose Point of Care 60 mg/dl (65-105)
[2021-05-29 23:28] LABS: Glucose Point of Care 93 mg/dl (65-105)
[2021-05-30] VITALS (8 sets, daily range): BP systolic 111–124; BP diastolic 54–77; PULSE 62–79; RESP 20; TEMP 36.1–36.4; O2SAT 93–100
[2021-05-30] MEDS: LEVOTHYROXINE SODIUM 75 MCG TABLET PO (05:53)
[2021-05-30] MEDS: LEVOTHYROXINE SODIUM 100 MCG TABLET PO (05:53)
[2021-05-30 06:20] LABS: Hematocrit 33.6 % (37.0-47.0); Hemoglobin 10.2 g/dL (12.0-15.0); Mean Corpuscular HGB Conc 30.4 g/dl (32-36); Mean Corpuscular Hemoglobin 29.7 pg (26-34); Mean Corpuscular Volume 97.7 fl (80-100); Mean Platelet Volume 10.7 fl (7.4-10.4); Platelet Count Result 287 k/mm3 (150-375); Red Blood Count 3.44 M/mm3 (4.2-5.4); Red Cell Distribution Width 18.1 % (11.5-14.5); White Blood Count 12.4 K/mm3 (4.5-10.0)
[2021-05-30 06:47] LABS: Albumin Level 3.2 g/dL (3.5-5.1); Anion Gap 11 mmol/L (8-16); Blood Urea Nitrogen 76 mg/dL (7-17); Calcium 8.6 mg/dL (8.4-10.2); Carbon Dioxide 27 mmol/L (22-30); Chloride 103 mmol/L (98-107); Estimated CRCL calculation 22 ml/min; Estimated Glomerular Filt Rate 25; Glucose 58 mg/dL (65-105); Phosphorus 4.5 mg/dL (2.5-4.5); Potassium 3.9 mmol/L (3.4-5.0); Sodium 141 mmol/L (137-145)
[2021-05-30 07:08] LABS: Glucose Point of Care 74 mg/dl (65-105)
[2021-05-30] MEDS: METOPROLOL TARTRATE 12.5 MG TABLET PO ×2 (08:29→20:45)
[2021-05-30] MEDS: ASPIRIN 81 MG ENTERIC TABLET PO (08:29)
[2021-05-30] MEDS: FERROUS SULFATE 324 MG TABLET PO (08:29)
[2021-05-30] MEDS: PRAVASTATIN SODIUM 20 MG TABLET PO (08:29)
[2021-05-30] MEDS: APIXABAN 5 MG TABLET PO (08:29)
--- NOTE | 2021-05-30 08:29 | PM.IMPN ---
Progress Note: A&P Assessment and Plan (1) Ventricular tachycardia: Code(s): I47.2 - Ventricular tachycardia Status: Acute Assessment and Plan: Admit to telemetry Continue to monitor Core status is DNR 05/29/21 12:26 Narrative: This is an 86-year-old female with past medical history significant for atrial fibrillation anticoagulated, type 2 diabetes mellitus insulin dependent, diabetic peripheral neuropathy, congestive heart failure, hypothyroidism, depression. Who was just discharged to [facility] and she has been brought back after her repeat lab work was abnormal upon review a has been found that the lab work is consistent for worsening creatinine, also on emergency room telemetry she was witnessed to have a run of V-tach. I have talked to the daughter about hospice and she is in agreement. Patient has not been able to provide any history due to confusion daughter states that she has been like this for several weeks now to probably months. 05/25 patient daughter present in the initially there was thought about admitting the patient under hospice however patient daughter had decided against hospice and would like to continue current management, patient has acute on chronic kidney disease will gently and will consult Nephrology for further recommendation patient also seen by cardiology and further recommendation to follow, unfortunately patient is not able to any review of symptom. 05/26 today patient is slightly awake but unfortunately still unable to provide detailed review of symptom, patient seen by Nephrology suspect patient elevated creatinine to hypertension, diabetes,vascular disease and diuretic as well as as related, stopped IVF patient may be 3rd spacing will restart diuretics if needed, will have a PT OT evaluate the the patient and further recommendation to follow. 05/27 Patient remains clinically is stable unable to provide detailed review of symptoms, urine culture is growing Enterobacter cloacae complex resistant ceftriaxone treated with Cipro, patient is seen by Nephrology suspect patient is 3rd spacing patient is diuresed patient creatinine is improving, will transfer patient out of IMU to medical floor will continue PT OT and further recommendation to follow. 05/28 today patient is more alert and awake states see has a bladder infection being treated, patient was able to use her walker and walked with PT. patient creatinine has improved from 2.5 upon arrival 1.6 today this may be her baseline patient is being gently diurese seen by Nephrology and further recommendation to follow. will continue PT OT patient will benefit going into acute rehab. 05/29 today patient appears more somnolent most likely secondary to hypoglycemia, patient has a poor p.o. intake and received SC insulin, will monitor also appears short of breath and patient was placed on 2 L oxygen nasal cannula, patient will benefit apnea link, patient with a UTI being treated with ciprofloxacin, will continue PT OT, patient kidney function is improving, patient is seen by Nephrology and further recommendation to follow. 05/30 will lower the Eliquis dose to 2.5 mg twice a day with his Age and renal function. hypoglycemia noted overnight and this morning will lower his insulin to 10 units b.i.d.. Poor p.o. intake likely reason. Renal function slightly up hemoglobin stable today. More alert today but still remains confused. I do not know her baseline. She has UTI with Enterobacter cloacae complex resistant to ceftriaxone. On IV ciprofloxacin which will be continued. Baseline creatinine between 1.5-1.8. Recheck labs in the morning. Nephrology following appreciate his recommendations. Chest x-ray with congestive changes on diuretic the dose of which is changed today. (2) Anemia: Code(s): D64.9 - Anemia, unspecified Status: Acute Assessment and Plan: Likely secondary to kidney failure On Procrit (3) Chronic renal insufficiency:
[2021-05-30] MEDS: TOLNAFTATE 1% POWDER 45 GM BTL 1 APPLIC TOPICAL ×2 (08:30→20:46)
[2021-05-30] MEDS: CIPROFLOXACIN 400 MG/D5W 200ML 200 ML 200 MG IVPB (08:31)
[2021-05-30] MEDS: SILVERGEL (ELTA) 45 ML 1 APPLIC TOPICAL (08:31)
[2021-05-30 10:36] LABS: Glucose Point of Care 113 mg/dl (65-105)
--- NOTE | 2021-05-30 11:29 | PM.PNCARD ---
Progress Note: A&P Assessment and Plan (1) Ventricular tachycardia: Code(s): I47.2 - Ventricular tachycardia <EVI Garcia - Last Filed: 05/30/21 15:46> Status: Acute <Janki Cesar EVI Akins - Last Filed: 05/30/21 15:46> Assessment and Plan: Self terminating versus noted. She denies palpitations, syncope, pre syncope. She is no longer being monitored on telemetry. <EVI Garcia - Last Filed: 05/30/21 15:46> (2) Elevated troponin: Code(s): R77.8 - Other specified abnormalities of plasma proteins <EVI Garcia - Last Filed: 05/30/21 15:46> Status: Acute <EVI Garcia - Last Filed: 05/30/21 15:46> Assessment and Plan: Not related to ACS <EVI Garcia - Last Filed: 05/30/21 15:46> (3) Chronic combined systolic and diastolic CHF (congestive heart failure): Code(s): I50.42 - Chronic combined systolic (congestive) and diastolic (congestive) heart failure <EVI Garcia - Last Filed: 05/30/21 15:46> Status: Acute <EVI Garcia - Last Filed: 05/30/21 15:46> Assessment and Plan: Acute on chronic combined systolic and diastolic heart failure. Not decompensated at this time. -Continue Bumex 1.5mg daily. Monitor renal function closely. Nephrology following -On low dose metoprolol <EVI Garcia - Last Filed: 05/30/21 15:46> (4) Coronary artery disease: Code(s): I25.10 - Atherosclerotic heart disease of [place] coronary artery without angina pectoris <EVI Garcia - Last Filed: 05/30/21 15:46> Status: Acute <EVI Garcia - Last Filed: 05/30/21 15:46> Assessment and Plan: Continue medical therapy with aspirin, statin. On metoprolol as above. <EVI Garcia - Last Filed: 05/30/21 15:46> (5) Chronic renal insufficiency: Code(s): N18.9 - Chronic kidney disease, unspecified <EVI Garcia - Last Filed: 05/30/21 15:46> Status: Acute <EVI Garcia - Last Filed: 05/30/21 15:46> Assessment and Plan: BUN, Cr fluctuating throughout admission. Nephrology following. <EVI Garcia - Last Filed: 05/30/21 15:46> Additional Plan Attending addendum: I agree with the above documentation and plan of care as outlined. Continue current medical therapy. Agree with reduction apixaban to 2.5 mg b.i.d.. If renal function improves in a stable manner with creatinine < 1.5 consider increased back to 5 mg b.i.d.. <Isidro Yao MD - Last Filed: 05/30/21 16:01> Subjective Date/time seen: 05/30/21 11:29 Date of service 05/30/2021: Patient is feeling ok today. She is complaining of tiredness because she did not sleep well last night. She says she never gets good sleep. She is comfortable on 2L O2 per nasal canula. She did say she became short of breath getting up to the chair. No chest pain, trace LE edema. <EVI Garcia - Last Filed: 05/30/21 15:46> Review of Systems Review of Systems: All systems reviewed & are unremarkable except as noted in HPI and below <EVI Garcia - Last Filed: 05/30/21 15:46> Constitutional: Constitutional: Denies fatigue, Denies headache(s) and Reports weakness <EVI Garcia - Last Filed: 05/30/21 15:46> Eyes: Eyes: Denies blurry vision <EVI Garcia - Last Filed: 05/30/21 15:46> ENT: Reports Normal hearing present, Denies headache(s) and Denies neck pain <EVI Garcia - Last Filed: 05/30/21 15:46> Cardiovascular: Cardiovascular: Reports chest pain, Reports pedal edema, Reports leg edema and Reports dyspnea <EVI Garcia - Last Filed: 05/30/21 15:46> Respiratory: Respiratory: Reports dyspnea <EVI Garcia - Last Filed: 05/30/21 15:46> Gastrointestinal: Gastrointestinal: Denies abdominal pain <EVI Garcia - Last Filed:
[2021-05-30 12:09] LABS: Glucose Point of Care 154 mg/dl (65-105)
--- NOTE | 2021-05-30 14:52 | PM.PNNEP ---
Progress Note: A&P Assessment and Plan (1) Chronic kidney disease, stage IV (severe): Code(s): N18.4 - Chronic kidney disease, stage 4 (severe) Status: Chronic Assessment and Plan: previous baseline creatinine was ~ 1.5 - 1.8mg/dl however, from last hospitalization, it seems her creatinine was running ~ 2.0 - 2.3mg/dl (new baseline?) due to HTN, diabetes, vascular disease, diuretics, and age-related change adjustment in dose/frequency of diuretics and holding ARB likely along with up/down oral intake explains fluctuating creatinine (2) Ventricular tachycardia: Code(s): I47.2 - Ventricular tachycardia Status: Acute Assessment and Plan: as noted by telemetry in ER no further episodes Cardiology following (3) Altered mental status: Code(s): R41.82 - Altered mental status, unspecified Status: Acute Assessment and Plan: clinically better thought to be secondary to gabapentin/medicatons however, UTI may be playing a role as well underlying dementia(?) follow mentation (4) Anemia: Code(s): D64.9 - Anemia, unspecified Status: Acute Assessment and Plan: due in part to underlying CKD continue Epogen while hospitalized follow trend of H/H (improving) (5) Chronic combined systolic and diastolic CHF (congestive heart failure): Code(s): I50.42 - Chronic combined systolic (congestive) and diastolic (congestive) heart failure Status: Acute Assessment and Plan: appears compensated despite elevated BNP back on bumex follow I/Os and daily weights CXR noted -- on higher dose of bumex (6) Urinary tract infection: Code(s): N39.0 - Urinary tract infection, site not specified Status: Acute Assessment and Plan: as noted by urine culture on antibiotics (7) Weakness: Code(s): R53.1 - Weakness Status: Acute Assessment and Plan: due to deconditioning from last hospitalization and previous ankle fracture PT/OT as tolerated Will continue to follow. Subjective Date/time seen: 05/30/21 14:52 Still with intermittent confusion (baseline?) but likely worsened by issues with hypoglycemia overnight and earlier this AM presumably due to poor oral intake; extra dose of bumex given yesterday with increased dose starting today based on last CXR findings. Exam Narrative: Exam Narrative: General: WD/WN female in NAD Heart: normal S1 and S2; no rub Lungs: decreased at bases Abdomen: soft, nontender, nondistended, positive bowel sounds Extremities: no cyanosis or clubbing; trace edema Skin: warm and dry Objective Data Vital Signs Vital Signs: Vital Signs Temp Pulse Resp BP Pulse Ox 05/30/21 14:00 36.4 C 79 20 120/60 99 05/30/21 08:29 72 05/30/21 08:00 100 05/30/21 05:14 36.3 C L 63 20 111/54 L 100 05/30/21 02:04 93 05/29/21 22:00 36.7 C 63 20 135/59 L 100 Intake/Output Intake/Output: Intake & Output 05/27/21 05/28/21 05/29/21 05/30/21 23:59 23:59 23:59 23:59 Intake Total 767.5 1640 1370 1850 Output Total 760 430 Balance 7.5 7531 439 9563 Meds/Results Medications: Active Medications Generic Name Dose Route Start Last Admin Trade Name Freq PRN Reason Stop Dose Admin Acetaminophen 1,000 mg 05/24/21 23:41 Acetaminophen 500 Mg Tablet PO TID PRN Pain Rated 1-3 Albuterol 1 puff 05/24/21 23:41 Albuterol Sulfate (*Sp) Aerosol 1 Puff INHALATION Q4H PRN Shortness Of Breath Apixaban 2.5 mg 05/30/21 17:00 05/30/21 16:42 Apixaban 2.5 Mg Tablet PO 2.5 mg BID ANY Administration Aspirin 81 mg 05/25/21 09:00 05/30/21 08:29 Aspirin 81 Mg Enteric Tablet PO 81 mg QAM ANY Administration Bumetanide 0.5 mg/ Bumetanide 1.5 mg 05/30/21 09:00 05/30/21 08:28 1 mg PO 1.5 mg DAILY ANY Administration Dextrose 12.5 gm 05/27/21 17:36 05/27/21 18:07 Dextrose 50% 25 Gm/5
--- NOTE | 2021-05-30 14:52 | P.PNNP_ITS ---
Progress Note: A&P Assessment and Plan (1) Chronic kidney disease, stage IV (severe): Code(s): N18.4 - Chronic kidney disease, stage 4 (severe) Status: Chronic Assessment and Plan: * previous baseline creatinine was ~ 1.5 - 1.8mg/dl * however, from last hospitalization, it seems her creatinine was running ~ 2.0 - 2.3mg/dl (new baseline?) * due to HTN, diabetes, vascular disease, diuretics, and age-related change * adjustment in dose/frequency of diuretics and holding ARB likely along with up/down oral intake explains fluctuating creatinine (2) Ventricular tachycardia: Code(s): I47.2 - Ventricular tachycardia Status: Acute Assessment and Plan: * as noted by telemetry in ER * no further episodes * Cardiology following (3) Altered mental status: Code(s): R41.82 - Altered mental status, unspecified Status: Acute Assessment and Plan: * clinically better * thought to be secondary to gabapentin/medicatons * however, UTI may be playing a role as well * underlying dementia(?) * follow mentation (4) Anemia: Code(s): D64.9 - Anemia, unspecified Status: Acute Assessment and Plan: * due in part to underlying CKD * continue Epogen while hospitalized * follow trend of H/H (improving) (5) Chronic combined systolic and diastolic CHF (congestive heart failure): Code(s): I50.42 - Chronic combined systolic (congestive) and diastolic (congestive) heart failure Status: Acute Assessment and Plan: * appears compensated despite elevated BNP * back on bumex * follow I/Os and daily weights * CXR noted -- on higher dose of bumex (6) Urinary tract infection: Code(s): N39.0 - Urinary tract infection, site not specified Status: Acute Assessment and Plan: * as noted by urine culture * on antibiotics (7) Weakness: Code(s): R53.1 - Weakness Status: Acute Assessment and Plan: * due to deconditioning from last hospitalization and previous ankle fracture * PT/OT as tolerated Will continue to follow. Subjective Date/time seen: 05/30/21 14:52 Still with intermittent confusion (baseline?) but likely worsened by issues with hypoglycemia overnight and earlier this AM presumably due to poor oral intake; extra dose of bumex given yesterday with increased dose starting today based on last CXR findings. Exam Narrative: Exam Narrative: General: WD/WN female in NAD Heart: normal S1 and S2; no rub Lungs: decreased at bases Abdomen: soft, nontender, nondistended, positive bowel sounds Extremities: no cyanosis or clubbing; trace edema Skin: warm and dry Objective Data Vital Signs Vital Signs: Vital Signs Temp Pulse Resp BP Pulse Ox 05/30/21 14:00 36.4 C 79 20 120/60 99 05/30/21 08:29 72 05/30/21 08:00 100 05/30/21 05:14 36.3 C L 63 20 111/54 L 100 05/30/21 02:04 93 05/29/21 22:00 36.7 C 63 20 135/59 L 100 Intake/Output Intake/Output: Intake & Output 05/27/21 05/28/21 05/29/21 05/30/21 23:59 23:59 23:59 23:59 Intake Total 767.5 1640 1370 1850 Output Total 760 430 Balance 7.5 5262 568 2151 Meds/Results Medications: Active Medications Generic Name Dose Route Start Last Admin
[2021-05-30] MEDS: APIXABAN 2.5 MG TABLET PO (16:42)
[2021-05-30 17:01] LABS: Glucose Point of Care 175 mg/dl (65-105)
[2021-05-30 21:36] LABS: Glucose Point of Care 136 mg/dl (65-105)
[2021-05-31] VITALS (9 sets, daily range): BP systolic 104–128; BP diastolic 53–90; PULSE 60–78; RESP 16–22; TEMP 36.2–36.4; O2SAT 92–100
[2021-05-31 06:20] LABS: Hemoglobin 10.2 g/dL (12.0-15.0); Mean Corpuscular Hemoglobin 29.5 pg (26-34); Mean Corpuscular Volume 98.3 fl (80-100); Mean Platelet Volume 10.9 fl (7.4-10.4); Platelet Count Result 243 k/mm3 (150-375); Red Blood Count 3.46 M/mm3 (4.2-5.4); Red Cell Distribution Width 17.8 % (11.5-14.5)
[2021-05-31 06:31] LABS: Albumin Level 3.3 g/dL (3.5-5.1); Anion Gap 12 mmol/L (8-16); Blood Urea Nitrogen 84 mg/dL (7-17); Calcium 8.3 mg/dL (8.4-10.2); Carbon Dioxide 26 mmol/L (22-30); Chloride 100 mmol/L (98-107); Estimated CRCL calculation 21 ml/min; Estimated Glomerular Filt Rate 24; Glucose 75 mg/dL (65-105); Phosphorus 4.7 mg/dL (2.5-4.5); Potassium 4.3 mmol/L (3.4-5.0); Sodium 138 mmol/L (137-145)
[2021-05-31] MEDS: LEVOTHYROXINE SODIUM 75 MCG TABLET PO (06:37)
[2021-05-31] MEDS: LEVOTHYROXINE SODIUM 100 MCG TABLET PO (06:37)
[2021-05-31 07:02] LABS: Glucose Point of Care 72 mg/dl (65-105)
[2021-05-31 08:44] LABS: Glucose Point of Care 90 mg/dl (65-105)
--- NOTE | 2021-05-31 09:12 | PM.PNCARD ---
Progress Note: A&P Assessment and Plan (1) Ventricular tachycardia: Code(s): I47.2 - Ventricular tachycardia Status: Acute Assessment and Plan: Self terminating versus noted. She denies palpitations, syncope, pre syncope. She is no longer being monitored on telemetry. (2) Elevated troponin: Code(s): R77.8 - Other specified abnormalities of plasma proteins Status: Acute Assessment and Plan: Not related to ACS (3) Chronic combined systolic and diastolic CHF (congestive heart failure): Code(s): I50.42 - Chronic combined systolic (congestive) and diastolic (congestive) heart failure Status: Acute Assessment and Plan: Acute on chronic combined systolic and diastolic heart failure. Not decompensated at this time. -Continue Bumex 1.5mg daily. Monitor renal function closely. Nephrology following -On low dose metoprolol (4) Coronary artery disease: Code(s): I25.10 - Atherosclerotic heart disease of [place] coronary artery without angina pectoris Status: Acute Assessment and Plan: Continue medical therapy with aspirin, statin. On metoprolol as above. (5) Chronic renal insufficiency: Code(s): N18.9 - Chronic kidney disease, unspecified Status: Acute Assessment and Plan: BUN, Cr fluctuating throughout admission. Nephrology following. (6) Atrial fibrillation: Code(s): I48.91 - Unspecified atrial fibrillation Status: Acute Assessment and Plan: History of atrial fibrillation. In atrial fibrillation with a controlled ventricular response on a modest dose of metoprolol. She remains on apixaban 2.5mg BID for systemic anticoagulation. Monitor renal function and may increase apixaban to 5 mg if serum creatinine <1.5 Subjective Date/time seen: 05/31/21 09:12 Date of service 05/30/2021: Patient is feeling ok today. She is complaining of tiredness because she did not sleep well last night. She says she never gets good sleep. She is comfortable on 2L O2 per nasal canula. She did say she became short of breath getting up to the chair. No chest pain, trace LE edema. Date of service 05/31/2021: Patient is feeling well today. She is a bit more oriented today Than she was yesterday. Resting comfortably in bed eating breakfast. She denies any chest pain, shortness of breath at rest but does say she gets short of breath when she gets out of bed. Review of Systems Review of Systems: All systems reviewed & are unremarkable except as noted in HPI and below Constitutional: Constitutional: Denies fatigue, Denies headache(s) and Reports weakness Eyes: Eyes: Denies blurry vision ENT: Reports Normal hearing present, Denies headache(s) and Denies neck pain Cardiovascular: Cardiovascular: Denies chest pain, Denies pedal edema, Denies leg edema and Reports dyspnea Respiratory: Respiratory: Denies dyspnea and Reports dyspnea on exertion Gastrointestinal: Gastrointestinal: Denies abdominal pain Genitourinary: Genitourinary: Denies flank pain Musculoskeletal: Musculoskeletal: Denies back pain, Reports arthralgias, Denies neck pain and Denies numbness Integumentary/Breasts: Skin/Breast: Denies dry skin and Reports unusual bruising Neurologic: Reports Normal hearing present, Denies confusion, Denies headache(s), Denies numbness and Reports weakness Psychiatric: Psychiatric: Denies anxiety and Denies confusion Endocrine: Endocrine: Denies fatigue and Denies flushing Hematologic/Lymphatic: Hematologic/Lymphatic: Reports easy bleeding and Reports easy bruising Allergic/Immunologic: Allergic/Immunologic: Denies GI upset with certain foods Exam Narrative: Exam Narrative: Elderly female. Sitting comfortably in chair. Const: General: comfortable and no acute distress; No confusion Orientation/consciousness: No confusion HENMT: General nose exam: Normal nares present Eyes: Sclera: sclerae normal Neck
[2021-05-31] MEDS: PRAVASTATIN SODIUM 20 MG TABLET PO (10:12)
[2021-05-31] MEDS: METOPROLOL TARTRATE 12.5 MG TABLET PO ×2 (10:12→20:08)
[2021-05-31] MEDS: FERROUS SULFATE 324 MG TABLET PO (10:13)
[2021-05-31] MEDS: APIXABAN 2.5 MG TABLET PO ×2 (10:13→17:05)
[2021-05-31] MEDS: ASPIRIN 81 MG ENTERIC TABLET PO (10:14)
[2021-05-31] MEDS: CIPROFLOXACIN 400 MG/D5W 200ML 200 ML 175 MG IVPB (10:15)
[2021-05-31] MEDS: SILVERGEL (ELTA) 45 ML 1 APPLIC TOPICAL (10:16)
[2021-05-31] MEDS: TOLNAFTATE 1% POWDER 45 GM BTL 1 APPLIC TOPICAL ×2 (10:16→20:09)
[2021-05-31 10:20] LABS: Glucose Point of Care 136 mg/dl (65-105)
--- NOTE | 2021-05-31 11:30 | P.PNNP_ITS ---
Progress Note: A&P Assessment and Plan (1) Chronic kidney disease, stage IV (severe): Code(s): N18.4 - Chronic kidney disease, stage 4 (severe) Status: Chronic Assessment and Plan: * previous baseline creatinine was ~ 1.5 - 1.8mg/dl * however, from last hospitalization, it seems her creatinine was running ~ 2.0 - 2.3mg/dl (new baseline?) * due to HTN, diabetes, vascular disease, diuretics, and age-related change * adjustment in dose/frequency of diuretics and holding ARB likely along with up/down oral intake explains fluctuating creatinine (2) Ventricular tachycardia: Code(s): I47.2 - Ventricular tachycardia Status: Acute Assessment and Plan: * as noted by telemetry in ER * no further episodes * Cardiology following (3) Altered mental status: Code(s): R41.82 - Altered mental status, unspecified Status: Acute Assessment and Plan: * clinically better * thought to be secondary to gabapentin/medicatons * however, UTI may be playing a role as well * underlying dementia(?) * follow mentation (4) Anemia: Code(s): D64.9 - Anemia, unspecified Status: Acute Assessment and Plan: * due in part to underlying CKD * continue Epogen while hospitalized * follow trend of H/H (improving) (5) Chronic combined systolic and diastolic CHF (congestive heart failure): Code(s): I50.42 - Chronic combined systolic (congestive) and diastolic (congestive) heart failure Status: Acute Assessment and Plan: * appears compensated despite elevated BNP * back on bumex * follow I/Os and daily weights * CXR noted -- continue diuretic therapy (6) Urinary tract infection: Code(s): N39.0 - Urinary tract infection, site not specified Status: Acute Assessment and Plan: * as noted by urine culture * on antibiotics (7) Weakness: Code(s): R53.1 - Weakness Status: Acute Assessment and Plan: * due to deconditioning from last hospitalization and previous ankle fracture * PT/OT as tolerated Will continue to follow. Subjective Date/time seen: 05/31/21 11:30 Mentation seems a bit better today in comparison to yesterday; breathing/respiratory status stable but says she feels more short of breath with exertion (but not at rest); no other acute issues/problems overnight or earlier this AM. Exam Narrative: Exam Narrative: General: WD/WN female in NAD Heart: normal S1 and S2; no rub Lungs: decreased at bases Abdomen: soft, nontender, nondistended, positive bowel sounds Extremities: no cyanosis or clubbing; trace edema Skin: warm and intact Objective Data Vital Signs Vital Signs: Vital Signs Temp Pulse Resp BP Pulse Ox 05/31/21 10:30 100 05/31/21 10:17 95 05/31/21 10:12 62 05/31/21 05:42 36.2 C L 72 18 110/53 L 92 05/31/21 05:41 36.4 C 63 20 104/90 100 05/30/21 22:00 36.1 C L 74 20 124/77 100 05/30/21 20:45 62 05/30/21 20:40 74 20 100 05/30/21 14:00 36.4 C 79 20 120/60 99 Intake/Output Intake/Output: Intake & Output 05/28/21 05/29/21 05/30/21 05/31/21 23:59 23:59 23:59 23:59 Intake Total 1640 1370 1850 370 Output Total 430 30 Balance 2362 339 3019 370 Meds/Results Medic
--- NOTE | 2021-05-31 11:30 | PM.PNNEP ---
Progress Note: A&P Assessment and Plan (1) Chronic kidney disease, stage IV (severe): Code(s): N18.4 - Chronic kidney disease, stage 4 (severe) Status: Chronic Assessment and Plan: previous baseline creatinine was ~ 1.5 - 1.8mg/dl however, from last hospitalization, it seems her creatinine was running ~ 2.0 - 2.3mg/dl (new baseline?) due to HTN, diabetes, vascular disease, diuretics, and age-related change adjustment in dose/frequency of diuretics and holding ARB likely along with up/down oral intake explains fluctuating creatinine (2) Ventricular tachycardia: Code(s): I47.2 - Ventricular tachycardia Status: Acute Assessment and Plan: as noted by telemetry in ER no further episodes Cardiology following (3) Altered mental status: Code(s): R41.82 - Altered mental status, unspecified Status: Acute Assessment and Plan: clinically better thought to be secondary to gabapentin/medicatons however, UTI may be playing a role as well underlying dementia(?) follow mentation (4) Anemia: Code(s): D64.9 - Anemia, unspecified Status: Acute Assessment and Plan: due in part to underlying CKD continue Epogen while hospitalized follow trend of H/H (improving) (5) Chronic combined systolic and diastolic CHF (congestive heart failure): Code(s): I50.42 - Chronic combined systolic (congestive) and diastolic (congestive) heart failure Status: Acute Assessment and Plan: appears compensated despite elevated BNP back on bumex follow I/Os and daily weights CXR noted -- continue diuretic therapy (6) Urinary tract infection: Code(s): N39.0 - Urinary tract infection, site not specified Status: Acute Assessment and Plan: as noted by urine culture on antibiotics (7) Weakness: Code(s): R53.1 - Weakness Status: Acute Assessment and Plan: due to deconditioning from last hospitalization and previous ankle fracture PT/OT as tolerated Will continue to follow. Subjective Date/time seen: 05/31/21 11:30 Mentation seems a bit better today in comparison to yesterday; breathing/respiratory status stable but says she feels more short of breath with exertion (but not at rest); no other acute issues/problems overnight or earlier this AM. Exam Narrative: Exam Narrative: General: WD/WN female in NAD Heart: normal S1 and S2; no rub Lungs: decreased at bases Abdomen: soft, nontender, nondistended, positive bowel sounds Extremities: no cyanosis or clubbing; trace edema Skin: warm and intact Objective Data Vital Signs Vital Signs: Vital Signs Temp Pulse Resp BP Pulse Ox 05/31/21 10:30 100 05/31/21 10:17 95 05/31/21 10:12 62 05/31/21 05:42 36.2 C L 72 18 110/53 L 92 05/31/21 05:41 36.4 C 63 20 104/90 100 05/30/21 22:00 36.1 C L 74 20 124/77 100 05/30/21 20:45 62 05/30/21 20:40 74 20 100 05/30/21 14:00 36.4 C 79 20 120/60 99 Intake/Output Intake/Output: Intake & Output 05/28/21 05/29/21 05/30/21 05/31/21 23:59 23:59 23:59 23:59 Intake Total 1640 1370 1850 370 Output Total 430 30 Balance 2171 277 6806 370 Meds/Results Medications: Active Medications Generic Name Dose Route Start Last Admin Trade Name Freq PRN Reason Stop Dose Admin Acetaminophen 1,000 mg 05/24/21 23:41 Acetaminophen 500 Mg Tablet PO TID PRN Pain Rated 1-3 Albuterol 1 puff 05/24/21 23:41 Albuterol Sulfate (*Sp) Aerosol 1 Puff INHALATION Q4H PRN Shortness Of Breath Apixaban 2.5 mg 05/30/21 17:00 05/31/21 10:13 Apixaban 2.5 Mg Tablet PO 2.5 mg BID ANY Administration Aspirin 81 mg 05/25/21 09:00 05/31/21 10:14 Aspirin 81 Mg Enteric Tablet PO 81 mg QAM ANY Administration Bumetanide 0.5 mg/ Bumetanide 1.5 mg 05/30/21 09:00 05/31/21 10:14 1 mg PO 1.5 mg DAILY ANY Administration
[2021-05-31 12:13] LABS: Glucose Point of Care 152 mg/dl (65-105)
--- NOTE | 2021-05-31 15:11 | PM.IMPN ---
Progress Note: A&P Assessment and Plan (1) Ventricular tachycardia: Code(s): I47.2 - Ventricular tachycardia Status: Acute Assessment and Plan: Admit to telemetry Continue to monitor Core status is DNR 05/29/21 12:26 Narrative: This is an 86-year-old female with past medical history significant for atrial fibrillation anticoagulated, type 2 diabetes mellitus insulin dependent, diabetic peripheral neuropathy, congestive heart failure, hypothyroidism, depression. Who was just discharged to [place] and she has been brought back after her repeat lab work was abnormal upon review a has been found that the lab work is consistent for worsening creatinine, also on emergency room telemetry she was witnessed to have a run of V-tach. I have talked to the daughter about hospice and she is in agreement. Patient has not been able to provide any history due to confusion daughter states that she has been like this for several weeks now to probably months. 05/25 patient daughter present in the initially there was thought about admitting the patient under hospice however patient daughter had decided against hospice and would like to continue current management, patient has acute on chronic kidney disease will gently and will consult Nephrology for further recommendation patient also seen by cardiology and further recommendation to follow, unfortunately patient is not able to any review of symptom. 05/26 today patient is slightly awake but unfortunately still unable to provide detailed review of symptom, patient seen by Nephrology suspect patient elevated creatinine to hypertension, diabetes,vascular disease and diuretic as well as as related, stopped IVF patient may be 3rd spacing will restart diuretics if needed, will have a PT OT evaluate the the patient and further recommendation to follow. 05/27 Patient remains clinically is stable unable to provide detailed review of symptoms, urine culture is growing Enterobacter cloacae complex resistant ceftriaxone treated with Cipro, patient is seen by Nephrology suspect patient is 3rd spacing patient is diuresed patient creatinine is improving, will transfer patient out of IMU to medical floor will continue PT OT and further recommendation to follow. 05/28 today patient is more alert and awake states see has a bladder infection being treated, patient was able to use her walker and walked with PT. patient creatinine has improved from 2.5 upon arrival 1.6 today this may be her baseline patient is being gently diurese seen by Nephrology and further recommendation to follow. will continue PT OT patient will benefit going into acute rehab. 05/29 today patient appears more somnolent most likely secondary to hypoglycemia, patient has a poor p.o. intake and received SC insulin, will monitor also appears short of breath and patient was placed on 2 L oxygen nasal cannula, patient will benefit apnea link, patient with a UTI being treated with ciprofloxacin, will continue PT OT, patient kidney function is improving, patient is seen by Nephrology and further recommendation to follow. 05/30 will lower the Eliquis dose to 2.5 mg twice a day with his Age and renal function. hypoglycemia noted overnight and this morning will lower his insulin to 10 units b.i.d.. Poor p.o. intake likely reason. Renal function slightly up hemoglobin stable today. More alert today but still remains confused. I do not know her baseline. She has UTI with Enterobacter cloacae complex resistant to ceftriaxone. On IV ciprofloxacin which will be continued. Baseline creatinine between 1.5-1.8. Recheck labs in the morning. Nephrology following appreciate his recommendations. Chest x-ray with congestive changes on diuretic the dose of which is changed today. 05/31 sees more oriented today as compared to yesterday. Chest x-ray from today reviewed which shows congestive changes continued to Be present. continue on diuresis as recommended by Cardiol
[2021-05-31 16:23] LABS: Glucose Point of Care 169 mg/dl (65-105)
[2021-05-31 20:27] LABS: Glucose Point of Care 119 mg/dl (65-105)
--- NOTE | 2021-05-31 23:32 | PC.NURSE ---
Patient restless, set off bed alarm and asked for orange juice. Patient stated she needs to go to the hospital for blood sugar . Obtained blood sugar, 53. Gave pudding and orange juice. Will recheck in 20-30 minutes
[2021-06-01] VITALS (10 sets, daily range): BP systolic 100–125; BP diastolic 60–81; PULSE 57–92; RESP 16–20; TEMP 36.2–36.6; O2SAT 95–100
[2021-06-01 00:04] LABS: Glucose Point of Care 53 mg/dl (65-105)
[2021-06-01 00:04] LABS: Glucose Point of Care 84 mg/dl (65-105)
[2021-06-01 02:09] LABS: Glucose Point of Care 113 mg/dl (65-105)
[2021-06-01] MEDS: LEVOTHYROXINE SODIUM 100 MCG TABLET PO (05:28)
[2021-06-01] MEDS: LEVOTHYROXINE SODIUM 75 MCG TABLET PO (05:28)
[2021-06-01 06:25] LABS: Basophils Percent Auto 0.2 % (0.2-1.2); Eosinophils Absolute Auto 0.1 K/mm3 (0-0.3); Eosinophils Percent Auto 0.9 % (0-4.4); Hematocrit 33.9 % (37.0-47.0); Hemoglobin 10.4 g/dL (12.0-15.0); Immature Granulocyte Absolute 0.11 K/mm3 (0.00-0.031); Immature Granulocyte Percent A 0.8 % (0-0.5); Lymphocytes Absolute Auto 1.37 K/mm3 (0.9-3.2); Lymphocytes Percent Auto 10.5 % (18.3-44.2); Mean Corpuscular HGB Conc 30.7 g/dl (32-36); Mean Corpuscular Volume 97.7 fl (80-100); Mean Platelet Volume 11.9 fl (7.4-10.4); Monocytes Absolute Auto 1.7 K/mm3 (0.1-0.6); Monocytes Percent Auto 12.9 % (2.6-8.5); Neutrophils Absolute Auto 9.7 K/mm3 (1.3-6.7); Neutrophils Percent Auto 74.7 % (45.5-73.1); Nucleated Red Blood Cells Perc 0.2 % (0.0-0.2); Platelet Count Result 186 k/mm3 (150-375); Red Blood Count 3.47 M/mm3 (4.2-5.4); Red Cell Distribution Width 17.5 % (11.5-14.5)
[2021-06-01 06:26] LABS: Anion Gap 13 mmol/L (8-16); Blood Urea Nitrogen 88 mg/dL (7-17); Calcium 8.1 mg/dL (8.4-10.2); Carbon Dioxide 22 mmol/L (22-30); Chloride 100 mmol/L (98-107); Estimated CRCL calculation 21 ml/min; Estimated Glomerular Filt Rate 24; Glucose 62 mg/dL (65-105); Potassium 4.5 mmol/L (3.4-5.0); Sodium 135 mmol/L (137-145)
[2021-06-01 06:52] LABS: Glucose Point of Care 70 mg/dl (65-105)
[2021-06-01 07:31] LABS: Glucose Point of Care 99 mg/dl (65-105)
--- NOTE | 2021-06-01 09:37 | P.PNNP_ITS ---
Progress Note: A&P Assessment and Plan (1) Chronic kidney disease, stage IV (severe): Code(s): N18.4 - Chronic kidney disease, stage 4 (severe) Status: Chronic Assessment and Plan: * previous baseline creatinine was ~ 1.5 - 1.8mg/dl * however, from last hospitalization, it seems her creatinine was running ~ 2.0 - 2.3mg/dl (new baseline?) * due to HTN, diabetes, vascular disease, diuretics, and age-related change * adjustment in dose/frequency of diuretics and holding ARB likely along with up/down oral intake explains fluctuating creatinine (2) Ventricular tachycardia: Code(s): I47.2 - Ventricular tachycardia Status: Acute Assessment and Plan: * as noted by telemetry in ER * no further episodes * Cardiology following (3) Altered mental status: Code(s): R41.82 - Altered mental status, unspecified Status: Acute Assessment and Plan: * clinically better * thought to be secondary to gabapentin/medicatons * however, UTI and recurrent hypoglycemia may be playing a role as well * underlying dementia(?) present/developing * follow mentation (4) Anemia: Code(s): D64.9 - Anemia, unspecified Status: Acute Assessment and Plan: * due in part to underlying CKD * continue Epogen while hospitalized * follow trend of H/H (improving) (5) Chronic combined systolic and diastolic CHF (congestive heart failure): Code(s): I50.42 - Chronic combined systolic (congestive) and diastolic (congestive) heart failure Status: Acute Assessment and Plan: * appears compensated despite elevated BNP * back on bumex * follow I/Os and daily weights * CXR noted -- continue diuretic therapy (6) Urinary tract infection: Code(s): N39.0 - Urinary tract infection, site not specified Status: Acute Assessment and Plan: * as noted by urine culture * on antibiotics (7) Diabetes mellitus: Qualifiers: Diabetes mellitus type: type 2 Diabetes mellitus jail insulin use: with jail use Diabetes mellitus complication status: with kidney complications Diabetes mellitus complication detail: with chronic kidney disease Chronic kidney disease stage: stage 4 (severe) Qualified Code(s): E11.22 - Type 2 diabetes mellitus with diabetic chronic kidney disease; N18.4 - Chronic kidney disease, stage 4 (severe); Z79.4 - termination clerk (current) use of insulin Code(s): E11.9 - Type 2 diabetes mellitus without complications Status: Acute Assessment and Plan: * off insulin therapy due to hypoglycemia * this is further complicated by her poor oral intake * follow accuchecks (8) Weakness: Code(s): R53.1 - Weakness Status: Acute Assessment and Plan: * due to deconditioning from last hospitalization and previous ankle fracture * PT/OT as tolerated Will continue to follow Subjective Date/time seen: 06/01/21 09:37 Continues to have episodes of hypoglycemia which is complicated by her poor oral intake; off insuling therapy at this time; still seems a bit confused at the time of my visit as well. Exam Narrative: Exam Narrative: General: WD/WN female in NAD Heart: normal S1 and S2; no rub Lungs: decreased at bases Abdomen: soft, nontender, nondistended, positive bowel sounds Extremities: no cyanosis or clubbing; trace edema Skin: no rash or nodules Objective Data Vital Signs Vital Signs: Vital Sig
--- NOTE | 2021-06-01 09:37 | PM.PNNEP ---
Progress Note: A&P Assessment and Plan (1) Chronic kidney disease, stage IV (severe): Code(s): N18.4 - Chronic kidney disease, stage 4 (severe) Status: Chronic Assessment and Plan: previous baseline creatinine was ~ 1.5 - 1.8mg/dl however, from last hospitalization, it seems her creatinine was running ~ 2.0 - 2.3mg/dl (new baseline?) due to HTN, diabetes, vascular disease, diuretics, and age-related change adjustment in dose/frequency of diuretics and holding ARB likely along with up/down oral intake explains fluctuating creatinine (2) Ventricular tachycardia: Code(s): I47.2 - Ventricular tachycardia Status: Acute Assessment and Plan: as noted by telemetry in ER no further episodes Cardiology following (3) Altered mental status: Code(s): R41.82 - Altered mental status, unspecified Status: Acute Assessment and Plan: clinically better thought to be secondary to gabapentin/medicatons however, UTI and recurrent hypoglycemia may be playing a role as well underlying dementia(?) present/developing follow mentation (4) Anemia: Code(s): D64.9 - Anemia, unspecified Status: Acute Assessment and Plan: due in part to underlying CKD continue Epogen while hospitalized follow trend of H/H (improving) (5) Chronic combined systolic and diastolic CHF (congestive heart failure): Code(s): I50.42 - Chronic combined systolic (congestive) and diastolic (congestive) heart failure Status: Acute Assessment and Plan: appears compensated despite elevated BNP back on bumex follow I/Os and daily weights CXR noted -- continue diuretic therapy (6) Urinary tract infection: Code(s): N39.0 - Urinary tract infection, site not specified Status: Acute Assessment and Plan: as noted by urine culture on antibiotics (7) Diabetes mellitus: Qualifiers: Diabetes mellitus type: type 2 Diabetes mellitus custodial insulin use: with custodial use Diabetes mellitus complication status: with kidney complications Diabetes mellitus complication detail: with chronic kidney disease Chronic kidney disease stage: stage 4 (severe) Qualified Code(s): E11.22 - Type 2 diabetes mellitus with diabetic chronic kidney disease; N18.4 - Chronic kidney disease, stage 4 (severe); Z79.4 - [facility] (current) use of insulin Code(s): E11.9 - Type 2 diabetes mellitus without complications Status: Acute Assessment and Plan: off insulin therapy due to hypoglycemia this is further complicated by her poor oral intake follow accuchecks (8) Weakness: Code(s): R53.1 - Weakness Status: Acute Assessment and Plan: due to deconditioning from last hospitalization and previous ankle fracture PT/OT as tolerated Will continue to follow Subjective Date/time seen: 06/01/21 09:37 Continues to have episodes of hypoglycemia which is complicated by her poor oral intake; off insuling therapy at this time; still seems a bit confused at the time of my visit as well. Exam Narrative: Exam Narrative: General: WD/WN female in NAD Heart: normal S1 and S2; no rub Lungs: decreased at bases Abdomen: soft, nontender, nondistended, positive bowel sounds Extremities: no cyanosis or clubbing; trace edema Skin: no rash or nodules Objective Data Vital Signs Vital Signs: Vital Signs Temp Pulse Resp BP Pulse Ox 06/01/21 09:13 95 06/01/21 04:55 36.2 C L 57 L 20 100/67 100 05/31/21 21:08 36.4 C 78 22 H 122/64 100 05/31/21 20:08 62 05/31/21 19:40 95 05/31/21 14:00 36.4 C L 60 16 128/68 100 05/31/21 10:30 100 05/31/21 10:17 95 05/31/21 10:12 62 Intake/Output Intake/Output: Intake & Output 05/29/21 05/30/21 05/31/21 06/01/21 23:59 23:59 23:59 23:59 Intake Total 1370 1850 1470 210 Output Total 430 30 Balance 940 1820 1470 210 Meds/
[2021-06-01] MEDS: PRAVASTATIN SODIUM 20 MG TABLET PO (09:43)
[2021-06-01] MEDS: SILVERGEL (ELTA) 45 ML 1 APPLIC TOPICAL (09:43)
[2021-06-01] MEDS: CIPROFLOXACIN 400 MG/D5W 200ML 200 ML 200 MG IVPB (09:44)
[2021-06-01] MEDS: FERROUS SULFATE 324 MG TABLET PO (09:44)
[2021-06-01] MEDS: ASPIRIN 81 MG ENTERIC TABLET PO (09:44)
[2021-06-01] MEDS: APIXABAN 2.5 MG TABLET PO ×2 (09:44→17:38)
[2021-06-01] MEDS: METOPROLOL TARTRATE 12.5 MG TABLET PO ×2 (09:44→20:18)
[2021-06-01] MEDS: TOLNAFTATE 1% POWDER 45 GM BTL 1 APPLIC TOPICAL ×2 (09:45→20:18)
[2021-06-01 10:19] LABS: Add Urine Microscopic? YES; Appearance Urine Clear (Clear); Bilirubin Urine Negative (Negative); Blood Urine Negative (Negative); Color Urine Yellow (Yellow); Glucose Urine UA Negative (Negative); Ketones Urine Negative (Negative); Leukocyte Esterase Ur Negative LEU/UL (NEGATIVE); Mucus Urine Rare /lpf; Nitrate Urine Negative (Negative); Protein Urine Negative (Negative); RBC Urine 0-2 /hpf (0-2); Specific Grav Ur 1.014 (1.001-1.035); Squamous Epithelial Cell Urine Moderate /hpf (Few); WBC Urine 0-3 /hpf (0-3)
--- NOTE | 2021-06-01 11:07 | PM.PNCARD ---
Progress Note: A&P Assessment and Plan (1) Ventricular tachycardia: Code(s): I47.2 - Ventricular tachycardia Status: Acute Assessment and Plan: Self terminating versus noted. Not currently experiencing any palpitations, syncope, pre-syncope. (2) Elevated troponin: Code(s): R77.8 - Other specified abnormalities of plasma proteins Status: Acute Assessment and Plan: Not related to ACS (3) Chronic combined systolic and diastolic CHF (congestive heart failure): Code(s): I50.42 - Chronic combined systolic (congestive) and diastolic (congestive) heart failure Status: Acute Assessment and Plan: Acute on chronic combined systolic and diastolic heart failure. Not decompensated at this time. -Continue Bumex 1.5mg daily. Monitor renal function closely. Nephrology following -On low dose metoprolol (4) Coronary artery disease: Code(s): I25.10 - Atherosclerotic heart disease of [place] coronary artery without angina pectoris Status: Acute Assessment and Plan: Continue medical therapy with aspirin, statin. On metoprolol as above. (5) Chronic renal insufficiency: Code(s): N18.9 - Chronic kidney disease, unspecified Status: Acute Assessment and Plan: BUN, Cr fluctuating throughout admission. Nephrology following. (6) Atrial fibrillation: Code(s): I48.91 - Unspecified atrial fibrillation Status: Acute Assessment and Plan: History of atrial fibrillation. In atrial fibrillation with a controlled ventricular response on a modest dose of metoprolol. She remains on apixaban 2.5mg BID for systemic anticoagulation. Monitor renal function and may increase apixaban to 5 mg if serum creatinine <1.5 Subjective Date/time seen: 06/01/21 11:07 Interval history: Date of service 06/01/2021: Patient says that she is having more difficulty with her breathing today. She is also reporting some abdominal pain but this improved after having a bowel movement. She is not as alert today as she has been and she is more confused. Review of Systems Review of Systems: All systems reviewed & are unremarkable except as noted in HPI and below Constitutional: Constitutional: Denies fatigue, Denies headache(s) and Reports weakness Eyes: Eyes: Denies blurry vision ENT: Reports Normal hearing present, Denies headache(s) and Denies neck pain Cardiovascular: Cardiovascular: Denies chest pain, Denies pedal edema, Denies leg edema, Denies palpitations, Denies dyspnea and Reports dyspnea on exertion Respiratory: Respiratory: Denies dyspnea and Reports dyspnea on exertion Gastrointestinal: Gastrointestinal: Denies abdominal pain Genitourinary: Genitourinary: Denies flank pain Musculoskeletal: Musculoskeletal: Denies back pain, Reports arthralgias, Denies neck pain and Denies numbness Integumentary/Breasts: Skin/Breast: Denies dry skin and Reports unusual bruising Neurologic: Reports Normal hearing present, Denies confusion, Denies headache(s), Denies numbness and Reports weakness Psychiatric: Psychiatric: Denies anxiety and Denies confusion Endocrine: Endocrine: Denies fatigue and Denies flushing Hematologic/Lymphatic: Hematologic/Lymphatic: Reports easy bleeding and Reports easy bruising Allergic/Immunologic: Allergic/Immunologic: Denies GI upset with certain foods Exam Narrative: Exam Narrative: Elderly female laying in bed. Const: General: comfortable, no acute distress and confusion Orientation/consciousness: confusion HENMT: General nose exam: Normal nares present Eyes: Sclera: sclerae normal Neck: Neck: supple and no JVD Chest: Other: No reproducible chest wall pain to palpation Resp: Effort & Inspection: normal respiratory effort Auscultation: clear to auscultation bilaterally and diminished lung sounds Other: tachypneic Cardio: Rate: regular rate Rhythm: abnormal rhythm irregularly irregular Heart
[2021-06-01 12:21] LABS: Glucose Point of Care 99 mg/dl (65-105)
[2021-06-01] MEDS: BUMETANIDE 0.5 MG TABLET PO (15:45)
[2021-06-01 17:32] LABS: Glucose Point of Care 126 mg/dl (65-105)
[2021-06-01 23:20] LABS: Glucose Point of Care 178 mg/dl (65-105)
[2021-06-02] VITALS (8 sets, daily range): BP systolic 114–131; BP diastolic 46–66; PULSE 61–76; RESP 18; TEMP 36.1–36.5; O2SAT 93–100; BMI 37.6
[2021-06-02] MEDS: LEVOTHYROXINE SODIUM 100 MCG TABLET PO (05:24)
[2021-06-02] MEDS: LEVOTHYROXINE SODIUM 75 MCG TABLET PO (05:24)
[2021-06-02 06:42] LABS: Basophils Percent Auto 0.1 % (0.2-1.2); Eosinophils Percent Auto 0.2 % (0-4.4); Hematocrit 34.4 % (37.0-47.0); Hemoglobin 10.5 g/dL (12.0-15.0); Immature Granulocyte Absolute 0.09 K/mm3 (0.00-0.031); Immature Granulocyte Percent A 0.7 % (0-0.5); Lymphocytes Absolute Auto 1.21 K/mm3 (0.9-3.2); Lymphocytes Percent Auto 9.3 % (18.3-44.2); Mean Corpuscular HGB Conc 30.5 g/dl (32-36); Mean Corpuscular Hemoglobin 29.5 pg (26-34); Mean Corpuscular Volume 96.6 fl (80-100); Mean Platelet Volume 12.1 fl (7.4-10.4); Monocytes Absolute Auto 1.6 K/mm3 (0.1-0.6); Monocytes Percent Auto 12.1 % (2.6-8.5); Neutrophils Absolute Auto 10.2 K/mm3 (1.3-6.7); Neutrophils Percent Auto 77.6 % (45.5-73.1); Nucleated Red Blood Cells Perc 0.2 % (0.0-0.2); Platelet Count Result 185 k/mm3 (150-375); Red Blood Count 3.56 M/mm3 (4.2-5.4); Red Cell Distribution Width 17.3 % (11.5-14.5); White Blood Count 13.1 K/mm3 (4.5-10.0)
[2021-06-02 06:50] LABS: Anion Gap 11 mmol/L (8-16); Blood Urea Nitrogen 88 mg/dL (7-17); Calcium 8.1 mg/dL (8.4-10.2); Carbon Dioxide 24 mmol/L (22-30); Chloride 99 mmol/L (98-107); Estimated CRCL calculation 18 ml/min; Estimated Glomerular Filt Rate 20; Glucose 118 mg/dL (65-105); Potassium 4.5 mmol/L (3.4-5.0); Sodium 134 mmol/L (137-145)
[2021-06-02 08:11] LABS: Glucose Point of Care 111 mg/dl (65-105)
[2021-06-02] MEDS: ASPIRIN 81 MG ENTERIC TABLET PO (09:26)
[2021-06-02] MEDS: APIXABAN 2.5 MG TABLET PO ×2 (09:26→17:15)
[2021-06-02] MEDS: PRAVASTATIN SODIUM 20 MG TABLET PO (09:26)
[2021-06-02] MEDS: CIPROFLOXACIN 250 MG TABLET PO ×2 (09:26→20:21)
[2021-06-02] MEDS: METOPROLOL TARTRATE 12.5 MG TABLET PO ×2 (09:26→20:21)
[2021-06-02] MEDS: BUMETANIDE PO 1 MG, BUMETANIDE PO 0.5 MG 1.5 MG PO (09:26)
[2021-06-02] MEDS: TOLNAFTATE 1% POWDER 45 GM BTL 1 APPLIC TOPICAL ×2 (09:28→20:38)
[2021-06-02] MEDS: SILVERGEL (ELTA) 45 ML 1 APPLIC TOPICAL (09:28)
[2021-06-02] MEDS: FERROUS SULFATE 324 MG TABLET PO (09:29)
[2021-06-02 11:35] LABS: Glucose Point of Care 171 mg/dl (65-105)
--- NOTE | 2021-06-02 13:32 | PCNSR ---
On 06/02/21, the student, Chelita Casey, provided care and completed [facility] documentation on this patient. I have reviewed the student's documentation and agree with the findings.
--- NOTE | 2021-06-02 13:36 | P.PNNP_ITS ---
Progress Note: A&P Assessment and Plan (1) Chronic kidney disease, stage IV (severe): Code(s): N18.4 - Chronic kidney disease, stage 4 (severe) Status: Chronic Assessment and Plan: * previous baseline creatinine was ~ 1.5 - 1.8mg/dl * however, from last hospitalization, it seems her creatinine was running ~ 2.0 - 2.3mg/dl (new baseline?) * due to HTN, diabetes, vascular disease, diuretics, and age-related change * adjustment in dose/frequency of diuretics and holding ARB likely along with up/down oral intake explains fluctuating creatinine - I am more worried that her poor oral intake will continue to cause her kidney function to worsen.... (2) Ventricular tachycardia: Code(s): I47.2 - Ventricular tachycardia Status: Acute Assessment and Plan: * as noted by telemetry in ER * no further episodes * Cardiology following (3) Altered mental status: Code(s): R41.82 - Altered mental status, unspecified Status: Acute Assessment and Plan: * better but not back to baseline * thought to be secondary to gabapentin/medications * however, UTI and recurrent hypoglycemia may be playing a role as well * underlying dementia(?) present/developing * follow mentation (4) Anemia: Code(s): D64.9 - Anemia, unspecified Status: Acute Assessment and Plan: * due in part to underlying CKD * continue Epogen while hospitalized * follow trend of H/H (improving) (5) Chronic combined systolic and diastolic CHF (congestive heart failure): Code(s): I50.42 - Chronic combined systolic (congestive) and diastolic (congestive) heart failure Status: Acute Assessment and Plan: * appears compensated despite elevated BNP * back on bumex * follow I/Os and daily weights * CXR noted -- continue diuretic therapy (6) Urinary tract infection: Code(s): N39.0 - Urinary tract infection, site not specified Status: Acute Assessment and Plan: * as noted by urine culture * on antibiotics (7) Diabetes mellitus: Qualifiers: Chronic kidney disease stage: stage 4 (severe) Diabetes mellitus complication detail: with chronic kidney disease Diabetes mellitus complication status: with kidney complications Diabetes mellitus skilled nursing insulin use: with skilled nursing use Diabetes mellitus type: type 2 Qualified Code(s): E11.22 - Type 2 diabetes mellitus with diabetic chronic kidney disease; N18.4 - Chronic kidney disease, stage 4 (severe); Z79.4 - keno terminal operator (current) use of insulin Code(s): E11.9 - Type 2 diabetes mellitus without complications Status: Acute Assessment and Plan: * off insulin therapy due to hypoglycemia * this is further complicated by her poor oral intake * follow accuchecks (8) Weakness: Code(s): R53.1 - Weakness Status: Acute Assessment and Plan: * due to deconditioning from last hospitalization and previous ankle fracture * PT/OT as tolerated Will continue to follow Subjective Date/time seen: 06/02/21 12:36 Still remains confused and apparently not at her baseline per family; oral intake still sub-optimal; no issues/events overnight or earlier this AM: blood sugars are a bit better; major complaint is that of shortness of breath with exertion. Exam Narrative: Exam Narrative: General: WD/WN female in NAD Heart: normal S1 and S2; no rub Lungs: decreased at bases Abdomen: soft, nontender, nondistended, positive bowel sounds Extremities: no cyanosis or club
--- NOTE | 2021-06-02 13:36 | PM.PNNEP ---
Progress Note: A&P Assessment and Plan (1) Chronic kidney disease, stage IV (severe): Code(s): N18.4 - Chronic kidney disease, stage 4 (severe) Status: Chronic Assessment and Plan: previous baseline creatinine was ~ 1.5 - 1.8mg/dl however, from last hospitalization, it seems her creatinine was running ~ 2.0 - 2.3mg/dl (new baseline?) due to HTN, diabetes, vascular disease, diuretics, and age-related change adjustment in dose/frequency of diuretics and holding ARB likely along with up/down oral intake explains fluctuating creatinine - I am more worried that her poor oral intake will continue to cause her kidney function to worsen.... (2) Ventricular tachycardia: Code(s): I47.2 - Ventricular tachycardia Status: Acute Assessment and Plan: as noted by telemetry in ER no further episodes Cardiology following (3) Altered mental status: Code(s): R41.82 - Altered mental status, unspecified Status: Acute Assessment and Plan: better but not back to baseline thought to be secondary to gabapentin/medications however, UTI and recurrent hypoglycemia may be playing a role as well underlying dementia(?) present/developing follow mentation (4) Anemia: Code(s): D64.9 - Anemia, unspecified Status: Acute Assessment and Plan: due in part to underlying CKD continue Epogen while hospitalized follow trend of H/H (improving) (5) Chronic combined systolic and diastolic CHF (congestive heart failure): Code(s): I50.42 - Chronic combined systolic (congestive) and diastolic (congestive) heart failure Status: Acute Assessment and Plan: appears compensated despite elevated BNP back on bumex follow I/Os and daily weights CXR noted -- continue diuretic therapy (6) Urinary tract infection: Code(s): N39.0 - Urinary tract infection, site not specified Status: Acute Assessment and Plan: as noted by urine culture on antibiotics (7) Diabetes mellitus: Qualifiers: Chronic kidney disease stage: stage 4 (severe) Diabetes mellitus complication detail: with chronic kidney disease Diabetes mellitus complication status: with kidney complications Diabetes mellitus usp insulin use: with ferry terminal agent use Diabetes mellitus type: type 2 Qualified Code(s): E11.22 - Type 2 diabetes mellitus with diabetic chronic kidney disease; N18.4 - Chronic kidney disease, stage 4 (severe); Z79.4 - senior care (current) use of insulin Code(s): E11.9 - Type 2 diabetes mellitus without complications Status: Acute Assessment and Plan: off insulin therapy due to hypoglycemia this is further complicated by her poor oral intake follow accuchecks (8) Weakness: Code(s): R53.1 - Weakness Status: Acute Assessment and Plan: due to deconditioning from last hospitalization and previous ankle fracture PT/OT as tolerated Will continue to follow Subjective Date/time seen: 06/02/21 12:36 Still remains confused and apparently not at her baseline per family; oral intake still sub-optimal; no issues/events overnight or earlier this AM: blood sugars are a bit better; major complaint is that of shortness of breath with exertion. Exam Narrative: Exam Narrative: General: WD/WN female in NAD Heart: normal S1 and S2; no rub Lungs: decreased at bases Abdomen: soft, nontender, nondistended, positive bowel sounds Extremities: no cyanosis or clubbing; trace edema Skin: warm and dry Objective Data Vital Signs Vital Signs: Vital Signs Temp Pulse Resp BP Pulse Ox 06/02/21 12:27 98 06/02/21 08:00 93 06/02/21 06:00 36.1 C L 61 18 131/66 100 06/01/21 20:47 36.3 C L 92 16 122/81 100 06/01/21 20:35 98 06/01/21 20:18 92 06/01/21 20:14 92 16 122/81 100 06/01/21 20:00 100 06/01/21 14:00 36.6 C 65 20 125/60 100 Intake/Outp
[2021-06-02] MEDS: INSULIN ASPART (*BKC) 100 UNITS/ML SUB-Q (17:16)
[2021-06-02 17:27] LABS: Glucose Point of Care 231 mg/dl (65-105)
[2021-06-02 20:41] LABS: Glucose Point of Care 217 mg/dl (65-105)
[2021-06-02] MEDS: ONDANSETRON INJ 4 MG/2 ML VIAL IV PUSH (21:40)
--- NOTE | 2021-06-02 23:28 | ECG_ITS ---
Measurements Intervals [place] Rate: 63 P: VT: 0 QRS: -42 QRSD: 160 T: 135 QT: 488 QTc: 500 Interpretive Statements ATRIAL FIBRILLATION LEFT AXIS DEVIATION LEFT BUNDLE BRANCH BLOCK BASELINE ARTIFACT- I, II, AVR, V6 ABNORMAL ECG Electronically Signed On 06-03-2021 6:57:37 CDT by Syed Gillespie D.O.
[2021-06-02] MEDS: METOCLOPRAMIDE HCL INJ 10 MG/2 ML VIAL IV PUSH (23:43)
[2021-06-03] VITALS (7 sets, daily range): BP systolic 111–136; BP diastolic 45–82; PULSE 53–82; RESP 16–18; TEMP 36–36.5; O2SAT 98–100
[2021-06-03 00:35] LABS: Troponin I 0.056 ng/mL (0.000-0.034)
[2021-06-03] MEDS: LEVOTHYROXINE SODIUM 75 MCG TABLET PO (05:40)
[2021-06-03] MEDS: LEVOTHYROXINE SODIUM 100 MCG TABLET PO (05:40)
[2021-06-03 06:16] LABS: Basophils Percent Auto 0.1 % (0.2-1.2); Eosinophils Percent Auto 0.2 % (0-4.4); Hematocrit 34.1 % (37.0-47.0); Hemoglobin 10.1 g/dL (12.0-15.0); Immature Granulocyte Absolute 0.11 K/mm3 (0.00-0.031); Immature Granulocyte Percent A 0.7 % (0-0.5); Lymphocytes Absolute Auto 0.86 K/mm3 (0.9-3.2); Lymphocytes Percent Auto 5.8 % (18.3-44.2); Mean Corpuscular HGB Conc 29.6 g/dl (32-36); Mean Corpuscular Hemoglobin 29.5 pg (26-34); Mean Corpuscular Volume 99.7 fl (80-100); Mean Platelet Volume 12.6 fl (7.4-10.4); Monocytes Absolute Auto 1.8 K/mm3 (0.1-0.6); Monocytes Percent Auto 12.4 % (2.6-8.5); Neutrophils Percent Auto 80.8 % (45.5-73.1); Nucleated Red Blood Cells Perc 0.1 % (0.0-0.2); Platelet Count Result 181 k/mm3 (150-375); Red Blood Count 3.42 M/mm3 (4.2-5.4); Red Cell Distribution Width 17.7 % (11.5-14.5); White Blood Count 14.8 K/mm3 (4.5-10.0)
[2021-06-03 07:58] LABS: Glucose Point of Care 162 mg/dl (65-105)
[2021-06-03] MEDS: ONDANSETRON INJ 4 MG/2 ML VIAL IV PUSH ×2 (08:30→22:26)
[2021-06-03] MEDS: APIXABAN 2.5 MG TABLET PO ×2 (08:32→17:14)
[2021-06-03] MEDS: ASPIRIN 81 MG ENTERIC TABLET PO (08:32)
[2021-06-03] MEDS: FERROUS SULFATE 324 MG TABLET PO (08:32)
[2021-06-03] MEDS: BUMETANIDE PO 1 MG, BUMETANIDE PO 0.5 MG 1.5 MG PO (08:32)
[2021-06-03] MEDS: METOPROLOL TARTRATE 12.5 MG TABLET PO ×2 (08:33→22:09)
[2021-06-03] MEDS: CIPROFLOXACIN 250 MG TABLET PO (08:33)
[2021-06-03] MEDS: PRAVASTATIN SODIUM 20 MG TABLET PO (08:33)
[2021-06-03] MEDS: SILVERGEL (ELTA) 45 ML 1 APPLIC TOPICAL (08:34)
[2021-06-03] MEDS: TOLNAFTATE 1% POWDER 45 GM BTL 1 APPLIC TOPICAL ×2 (08:34→22:20)
[2021-06-03 10:41] LABS: Anion Gap 15 mmol/L (8-16); Blood Urea Nitrogen 104 mg/dL (7-17); Calcium 7.8 mg/dL (8.4-10.2); Carbon Dioxide 24 mmol/L (22-30); Chloride 97 mmol/L (98-107); Estimated CRCL calculation 18 ml/min; Estimated Glomerular Filt Rate 19; Glucose 237 mg/dL (65-105); Potassium 4.6 mmol/L (3.4-5.0); Sodium 136 mmol/L (137-145)
--- NOTE | 2021-06-03 11:26 | P.PNNP_ITS ---
Progress Note: A&P Assessment and Plan (1) Chronic kidney disease, stage IV (severe): Code(s): N18.4 - Chronic kidney disease, stage 4 (severe) Status: Chronic Assessment and Plan: * previous baseline creatinine was ~ 1.5 - 1.8mg/dl * however, from last hospitalization, it seems her creatinine was running ~ 2.0 - 2.3mg/dl (new baseline?) * due to HTN, diabetes, vascular disease, diuretics, and age-related change * adjustment in dose/frequency of diuretics and holding ARB likely along with up/down oral intake explains fluctuating creatinine - I am more worried that her poor oral intake will continue to cause her kidney function to worsen.... - will hold bumex for now (but will eventually need to restart given her CHF issues at baseline) (2) Ventricular tachycardia: Code(s): I47.2 - Ventricular tachycardia Status: Acute Assessment and Plan: * as noted by telemetry in ER * no further episodes * Cardiology following (3) Altered mental status: Code(s): R41.82 - Altered mental status, unspecified Status: Acute Assessment and Plan: * better on my visit today * thought to be secondary to gabapentin/medications * however, UTI and recurrent hypoglycemia may be playing a role as well * underlying dementia(?) present/developing * follow mentation (4) Anemia: Code(s): D64.9 - Anemia, unspecified Status: Acute Assessment and Plan: * due in part to underlying CKD * continue Epogen while hospitalized * follow trend of H/H (improving) (5) Chronic combined systolic and diastolic CHF (congestive heart failure): Code(s): I50.42 - Chronic combined systolic (congestive) and diastolic (congestive) heart failure Status: Acute Assessment and Plan: * appears compensated despite elevated BNP * follow I/Os and daily weights * CXR noted * hold bumex giving rising BUN/azotemia (6) Urinary tract infection: Code(s): N39.0 - Urinary tract infection, site not specified Status: Acute Assessment and Plan: * as noted by urine culture * on antibiotics (7) Diabetes mellitus: Qualifiers: Chronic kidney disease stage: stage 4 (severe) Diabetes mellitus complication detail: with chronic kidney disease Diabetes mellitus complication status: with kidney complications Diabetes mellitus long term care administrator insulin use: with long term care administrator use Diabetes mellitus type: type 2 Qualified Code(s): E11.22 - Type 2 diabetes mellitus with diabetic chronic kidney disease; N18.4 - Chronic kidney disease, stage 4 (severe); Z79.4 - care home (current) use of insulin Code(s): E11.9 - Type 2 diabetes mellitus without complications Status: Acute Assessment and Plan: * off insulin therapy due to hypoglycemia * this is further complicated by her poor oral intake * follow accuchecks (8) Weakness: Code(s): R53.1 - Weakness Status: Acute Assessment and Plan: * due to deconditioning from last hospitalization and previous ankle fracture * PT/OT as tolerated Will continue to follow Subjective Date/time seen: 06/03/21 11:26 Seems a bit more awake and alert at the time of my visit; daughter was at bedside and we discussed the situation; apparently ate more in the last 24 hours since her outpatient caregiver was here yesterday; no acute distress. Exam Narrative: Exam Narrative: General: WD/WN female in NAD Heart: normal S1 and S2; no rub Lungs: decreased at bases Abdomen: s
--- NOTE | 2021-06-03 11:26 | PM.PNNEP ---
Progress Note: A&P Assessment and Plan (1) Chronic kidney disease, stage IV (severe): Code(s): N18.4 - Chronic kidney disease, stage 4 (severe) Status: Chronic Assessment and Plan: previous baseline creatinine was ~ 1.5 - 1.8mg/dl however, from last hospitalization, it seems her creatinine was running ~ 2.0 - 2.3mg/dl (new baseline?) due to HTN, diabetes, vascular disease, diuretics, and age-related change adjustment in dose/frequency of diuretics and holding ARB likely along with up/down oral intake explains fluctuating creatinine - I am more worried that her poor oral intake will continue to cause her kidney function to worsen.... - will hold bumex for now (but will eventually need to restart given her CHF issues at baseline) (2) Ventricular tachycardia: Code(s): I47.2 - Ventricular tachycardia Status: Acute Assessment and Plan: as noted by telemetry in ER no further episodes Cardiology following (3) Altered mental status: Code(s): R41.82 - Altered mental status, unspecified Status: Acute Assessment and Plan: better on my visit today thought to be secondary to gabapentin/medications however, UTI and recurrent hypoglycemia may be playing a role as well underlying dementia(?) present/developing follow mentation (4) Anemia: Code(s): D64.9 - Anemia, unspecified Status: Acute Assessment and Plan: due in part to underlying CKD continue Epogen while hospitalized follow trend of H/H (improving) (5) Chronic combined systolic and diastolic CHF (congestive heart failure): Code(s): I50.42 - Chronic combined systolic (congestive) and diastolic (congestive) heart failure Status: Acute Assessment and Plan: appears compensated despite elevated BNP follow I/Os and daily weights CXR noted hold bumex giving rising BUN/azotemia (6) Urinary tract infection: Code(s): N39.0 - Urinary tract infection, site not specified Status: Acute Assessment and Plan: as noted by urine culture on antibiotics (7) Diabetes mellitus: Qualifiers: Chronic kidney disease stage: stage 4 (severe) Diabetes mellitus complication detail: with chronic kidney disease Diabetes mellitus complication status: with kidney complications Diabetes mellitus intermediate card tender insulin use: with mcc use Diabetes mellitus type: type 2 Qualified Code(s): E11.22 - Type 2 diabetes mellitus with diabetic chronic kidney disease; N18.4 - Chronic kidney disease, stage 4 (severe); Z79.4 - detention (current) use of insulin Code(s): E11.9 - Type 2 diabetes mellitus without complications Status: Acute Assessment and Plan: off insulin therapy due to hypoglycemia this is further complicated by her poor oral intake follow accuchecks (8) Weakness: Code(s): R53.1 - Weakness Status: Acute Assessment and Plan: due to deconditioning from last hospitalization and previous ankle fracture PT/OT as tolerated Will continue to follow Subjective Date/time seen: 06/03/21 11:26 Seems a bit more awake and alert at the time of my visit; daughter was at bedside and we discussed the situation; apparently ate more in the last 24 hours since her outpatient caregiver was here yesterday; no acute distress. Exam Narrative: Exam Narrative: General: WD/WN female in NAD Heart: normal S1 and S2; no rub Lungs: decreased at bases Abdomen: soft, nontender, nondistended, positive bowel sounds Extremities: no cyanosis or clubbing; trace edema Skin: warm and intact Objective Data Vital Signs Vital Signs: Vital Signs Temp Pulse Resp BP Pulse Ox 06/03/21 08:33 72 06/03/21 06:00 36.2 C L 61 18 136/45 L 100 06/02/21 21:27 99 06/02/21 21:26 36.5 C 68 18 120/46 L 100 06/02/21 20:21 76 06/02/21 20:00 99 06/02/21 14:00 36.1 C L 74 18 1
[2021-06-03 12:43] LABS: Glucose Point of Care 235 mg/dl (65-105)
[2021-06-03] MEDS: INSULIN ASPART (*BKC) 100 UNITS/ML SUB-Q ×2 (12:49→17:13)
[2021-06-03 17:05] LABS: Glucose Point of Care 298 mg/dl (65-105)
[2021-06-03] MEDS: ACETAMINOPHEN 500 MG TABLET 1000 MG PO (17:16)
[2021-06-03 22:35] LABS: Glucose Point of Care 262 mg/dl (65-105)
[2021-06-03] MEDS: METOCLOPRAMIDE HCL INJ 10 MG/2 ML VIAL IV PUSH (23:56)
[2021-06-04] MEDS: ONDANSETRON INJ 4 MG/2 ML VIAL IV PUSH (02:36)
[2021-06-04] MEDS: LEVOTHYROXINE SODIUM 75 MCG TABLET PO (05:17)
[2021-06-04] MEDS: LEVOTHYROXINE SODIUM 100 MCG TABLET PO (05:17)
[2021-06-04 05:54] VITALS: BP 122/91; PULSE 60; RESP 18; TEMP 35.9; O2SAT 100
[2021-06-04 06:11] LABS: Basophils Percent Auto 0.1 % (0.2-1.2); Eosinophils Absolute Auto 0.1 K/mm3 (0-0.3); Eosinophils Percent Auto 0.8 % (0-4.4); Hematocrit 32.7 % (37.0-47.0); Hemoglobin 10.1 g/dL (12.0-15.0); Immature Granulocyte Absolute 0.08 K/mm3 (0.00-0.031); Immature Granulocyte Percent A 0.6 % (0-0.5); Lymphocytes Absolute Auto 0.98 K/mm3 (0.9-3.2); Lymphocytes Percent Auto 6.9 % (18.3-44.2); Mean Corpuscular HGB Conc 30.9 g/dl (32-36); Mean Corpuscular Hemoglobin 29.4 pg (26-34); Mean Corpuscular Volume 95.3 fl (80-100); Mean Platelet Volume 12.8 fl (7.4-10.4); Monocytes Absolute Auto 1.6 K/mm3 (0.1-0.6); Monocytes Percent Auto 11.2 % (2.6-8.5); Neutrophils Absolute Auto 11.5 K/mm3 (1.3-6.7); Neutrophils Percent Auto 80.4 % (45.5-73.1); Platelet Count Result 158 k/mm3 (150-375); Red Blood Count 3.43 M/mm3 (4.2-5.4); Red Cell Distribution Width 17.7 % (11.5-14.5); White Blood Count 14.3 K/mm3 (4.5-10.0)
[2021-06-04 06:20] LABS: Anion Gap 14 mmol/L (8-16); Blood Urea Nitrogen 108 mg/dL (7-17); Calcium 7.8 mg/dL (8.4-10.2); Carbon Dioxide 24 mmol/L (22-30); Chloride 97 mmol/L (98-107); Estimated CRCL calculation 16 ml/min; Estimated Glomerular Filt Rate 18; Glucose 205 mg/dL (65-105); Potassium 4.6 mmol/L (3.4-5.0); Sodium 135 mmol/L (137-145)
[2021-06-04] MEDS: APIXABAN 2.5 MG TABLET PO (08:13)
[2021-06-04] MEDS: ASPIRIN 81 MG ENTERIC TABLET PO (08:13)
[2021-06-04] MEDS: FERROUS SULFATE 324 MG TABLET PO (08:13)
[2021-06-04] MEDS: PRAVASTATIN SODIUM 20 MG TABLET PO (08:13)
[2021-06-04 08:14] VITALS: PULSE 64
[2021-06-04] MEDS: METOPROLOL TARTRATE 12.5 MG TABLET PO (08:14)
[2021-06-04] MEDS: SILVERGEL (ELTA) 45 ML 1 APPLIC TOPICAL (08:16)
[2021-06-04] MEDS: TOLNAFTATE 1% POWDER 45 GM BTL 1 APPLIC TOPICAL (08:16)
[2021-06-04 08:40] LABS: Glucose Point of Care 199 mg/dl (65-105)
--- NOTE | 2021-06-04 11:29 | P.DS_ITS ---
DS: Admitting Diagnosis Admitting Diagnosis Admitting Diagnosis: Ventricular tachycardia DS: Discharge Diagnosis Discharge Diagnosis (1) Ventricular tachycardia: Code(s): I47.2 - Ventricular tachycardia Status: Acute Assessment and Plan: Admit to telemetry Continue to monitor Core status is DNR 05/29/21 12:26 Narrative: This is an 86-year-old female with past medical history significant for atrial fibrillation anticoagulated, type 2 diabetes mellitus insulin dependent, diabetic peripheral neuropathy, congestive heart failure, hypothyroidism, depression. Who was just discharged to [place] and she has been brought back after her repeat lab work was abnormal upon review a has been found that the lab work is consistent for worsening creatinine, also on emergency room telemetry she was witnessed to have a run of V-tach. I have talked to the daughter about hospice and she is in agreement. Patient has not been able to provide any history due to confusion daughter states that she has been like this for several weeks now to probably months. 05/25 patient daughter present in the initially there was thought about admitting the patient under hospice however patient daughter had decided against hospice and would like to continue current management, patient has acute on chronic kidney disease will gently and will consult Nephrology for further recommendation patient also seen by cardiology and further recommendation to follow, unfortunately patient is not able to any review of symptom. 05/26 today patient is slightly awake but unfortunately still unable to provide detailed review of symptom, patient seen by Nephrology suspect patient elevated creatinine to hypertension, diabetes,vascular disease and diuretic as well as as related, stopped IVF patient may be 3rd spacing will restart diuretics if needed, will have a PT OT evaluate the the patient and further recommendation to follow. 05/27 Patient remains clinically is stable unable to provide detailed review of symptoms, urine culture is growing Enterobacter cloacae complex resistant ceftriaxone treated with Cipro, patient is seen by Nephrology suspect patient is 3rd spacing patient is diuresed patient creatinine is improving, will transfer patient out of IMU to medical floor will continue PT OT and further recommendation to follow. 05/28 today patient is more alert and awake states see has a bladder infection being treated, patient was able to use her walker and walked with PT. patient creatinine has improved from 2.5 upon arrival 1.6 today this may be her baseline patient is being gently diurese seen by Nephrology and further recommendation to follow. will continue PT OT patient will benefit going into acute rehab. 05/29 today patient appears more somnolent most likely secondary to hypoglycemia, patient has a poor p.o. intake and received SC insulin, will monitor also appears short of breath and patient was placed on 2 L oxygen nasal cannula, patient will benefit apnea link, patient with a UTI being treated with ciprofloxacin, will continue PT OT, patient kidney function is improving, patient is seen by Nephrology and further recommendation to follow. 05/30 will lower the Eliquis dose to 2.5 mg twice a day with his Age and renal function. hypoglycemia noted overnight and this morning will lower his insulin to 10 units b.i.d.. Poor p.o. intake likely reason. Renal function slightly up hemoglobin stable today. More alert today but still remains confused. I do not know her baseline. She has UTI with Enterobacter cloacae complex resistant to ceftriaxone. On IV ciprofloxacin which will be continued. Baseline creatinine between 1.5-1.8. Recheck labs in t
[2021-06-04 11:35] VITALS: PULSE 59; RESP 20; O2SAT 100
[2021-06-04] MEDS: INSULIN ASPART (*BKC) 100 UNITS/ML SUB-Q (12:06)
[2021-06-04 12:08] LABS: Glucose Point of Care 244 mg/dl (65-105)
== END 2021-06-04 14:44 | DRG 308 ==
LOC: ANHED 19:36 → ANHIMU 20:13 → ANH3MEDSUR 05-27 19:28 → ANHIMU 06-07 14:36
PROVIDERS: Internal Medicine; Nurse Practitioner; Admitting Provider Family Medicine; Emergency Provider Emergency Medicine; PCP Family Medicine; Visit Provider Internal Medicine
DX: I47.2 Ventricular tachycardia (principal); I50.43 Acute on chronic combined systolic (congestive) and diastolic (congestive) heart failure; S82.891P Other fracture of right lower leg, subsequent encounter for closed fracture with malunion; I13.0 Hypertensive heart and chronic kidney disease with heart failure and stage 1 through stage 4 chronic kidney disease, or unspecified chronic kidney disease; N18.4 Chronic kidney disease, stage 4 (severe); N39.0 Urinary tract infection, site not specified; B96.89 Other specified bacterial agents as the cause of diseases classified elsewhere; E11.22 Type 2 diabetes mellitus with diabetic chronic kidney disease; E11.42 Type 2 diabetes mellitus with diabetic polyneuropathy; D63.1 Anemia in chronic kidney disease; E11.319 Type 2 diabetes mellitus with unspecified diabetic retinopathy without macular edema; R77.8 Other specified abnormalities of plasma proteins; R53.1 Weakness; R41.82 Altered mental status, unspecified; I25.10 Atherosclerotic heart disease of native coronary artery without angina pectoris; F41.8 Other specified anxiety disorders; E89.0 Postprocedural hypothyroidism; E78.5 Hyperlipidemia, unspecified; I48.91 Unspecified atrial fibrillation; Z66 Do not resuscitate; Z79.01 Long term (current) use of anticoagulants; Z79.4 Long term (current) use of insulin; Z79.82 Long term (current) use of aspirin; Z79.899 Other long term (current) drug therapy; Z88.2 Allergy status to sulfonamides; Z98.42 Cataract extraction status, left eye; Z98.41 Cataract extraction status, right eye; Z85.850 Personal history of malignant neoplasm of thyroid
CPT/HCPCS: 36415; 71045; 73600; 74176; 80048; 80053; 80069; 81001; 82948; 83735; 83880; 84484; 85025; 85027; 85610; 85730; 87077; 87086; 87088; 87186; 93005; 96365; 96366; 96375; 97110; 97162; 97165; 97530; 97535; 99285; A9270; G0378; J0696; J0744; J1815; J2405; J2765; J7030